=== PATIENT | male | born 1990 | race Caucasian/White ===

== ENCOUNTER 2021-07-04 02:40 | Emergency (ER) | payer BC ==
[2021-07-04 02:49] VITALS: TEMP 97.8
[2021-07-04] MEDS ORDERED: SODIUM CHLORIDE 0.9% 1,000 ML IV STA (03:29)
[2021-07-04] MEDS ORDERED: MORPHINE SULFATE 4 MG/ML SYRINGE IV STA (03:29)
[2021-07-04] MEDS ORDERED: ONDANSETRON 4 MG/2 ML VIAL IVP STA (03:29)
--- NOTE | 2021-07-04 04:10 | ED ---
Abdominal Pain HPI - General Chief Complaint: Abdominal Pain Stated Complaint: Crohn's flare up Time Seen by Provider: 07/04/21 03:05 Source: patient Mode of arrival: ambulatory - History of Present Illness Initial Comments: Patient is 31-year-old man with history of Crohn's disease who states that he believes he is having a flareup. The patient is having some lower abdominal pain as well as nausea and diarrhea. MD Complaint: abdominal pain -: days(s) Location: periumbilical, LLQ, RLQ Radiation: none Migration to: no migration Severity: moderate Quality: cramping, aching Consistency: constant Improves With: nothing Worsens With: nothing Associated Symptoms: nausea, diarrhea - Related Data Previous Rx's Medication Instructions Recorded Amoxicillin/Potassium Clav 1 tab PO Q12HR 1 Days #14 tab 07/04/21 [Augmentin 875-125 Tablet] Dicyclomine [Bentyl] 20 mg PO QID #15 tablet 07/04/21 Ondansetron Odt [Zofran ODT] 4 mg PO Q8HR PRN #10 tab 07/04/21 predniSONE 60 mg PO DAILY #30 tab 07/04/21 Allergies Allergy/AdvReac Type Severity Reaction Status Date / Time No Known Allergies Allergy Verified 07/04/21 02:48 Review of Systems ROS Statement: Those systems with pertinent positive or pertinent negative responses have been documented in the HPI. ROS Other: All systems not noted in ROS Statement are negative. Constitutional: Denies: fever, chills Respiratory: Denies: cough, dyspnea Cardiovascular: Denies: chest pain, palpitations, edema Gastrointestinal: Reports: abdominal pain, nausea, diarrhea. Denies: constipation, hematemesis, melena, hematochezia Genitourinary: Denies: dysuria, hematuria, testicular pain Musculoskeletal: Denies: back pain Skin: Denies: rash Neurological: Denies: headache, weakness Past Medical History Additional Past Medical History / Comment(s): chrons History of Any Multi-Drug Resistant Organisms: None Reported Additional Past Surgical History / Comment(s): spleen removed Past Psychological History: No Psychological Hx Reported Smoking Status: Never smoker Past Alcohol Use History: None Reported Past Drug Use History: None Reported General Exam General appearance: alert, in no apparent distress Head exam: Present: atraumatic, normocephalic Eye exam: Present: normal appearance. Absent: scleral icterus, conjunctival injection ENT exam: Present: normal oropharynx Neck exam: Present: normal inspection Respiratory exam: Present: normal lung sounds bilaterally. Absent: respiratory distress, wheezes, rales, rhonchi, stridor Cardiovascular Exam: Present: regular rate, normal rhythm, normal heart sounds. Absent: systolic murmur, diastolic murmur, rubs, gallop GI/Abdominal exam: Present: soft, tenderness (There is some lower abdominal tenderness without rebound or guarding). Absent: distended, guarding, rebound, rigid, mass, pulsatile mass, hernia Extremities exam: Present: normal inspection, normal capillary refill. Absent: pedal edema, calf tenderness Back exam: Present: normal inspection. Absent: CVA tenderness (R), CVA te nderness (L) Neurological exam: Present: alert Skin exam: Present: warm, dry, intact, normal color. Absent: rash Course Vital Signs 07/04/21 07/04/21 07/04/21 02:44 03:45 05:00 Temperature 97.8 F Pulse Rate 77 62 56 L Respiratory 18 20 20 Rate Blood Pressure 140/76 138/84 115/68 O2 Sat by Pulse 97 100 100 Oximetry 07/04/21 07/04/21 06:04 07:55 Temperature Pulse Rate 58 L 64 Respiratory 20 16 Rate Blood Pressure 121/92 117/69 O2 Sat by Pulse 99 99 Oximetry Medical Decision Making - Medical Decision Making Patient is 31-year-old man with history of inflammatory bowel disease who presents with what he believes is exacerbation of same. Workup does reveal marked leukocytosis and computed tomography scan is consistent with Crohn's flareup, possible small bowel obstruction. I did recommend that the patient stay for admission to begin having some improvement, but the patient then decided to leave AGAINST MEDICAL ADVICE. - Lab Data Result diagrams: 07/04/21 03:34 07/04/21 03:34 Lab Results 07/04/21 07/04/21 07/04/21 Range/Units 03:34 03:34 03:34 WBC 29.2 H (3.8-10.6) k/uL RBC 5.12 (4.30-5.90) m/uL Hgb 16.5 (13.0-17.5) gm/dL Hct 46.3 (39.0-53.0) % MCV 90.4 (80.0-100.0) fL MCH 32.2 (25.0-35.0) pg MCHC 35.6 (31.0-37.0) g/dL RDW 13.1 (11.5-15.5) % Plt Count 688 H (150-450) k/uL MPV 8.9 Neutrophils % 89 % Lymphocytes % 4 % Monocytes % 5 % Eosinophils % 1 % Basophils % 1 % Neutrophils # 26.0 H (1.3-7.7) k/uL Lymphocytes # 1.2 (1.0-4.8) k/uL Monocytes # 1.5 H (0-1.0) k/uL Eosinophils # 0.1 (0-0.7) k/uL Basophils # 0.2 (0-0.2) k/uL Hyperchromasia Marked Sodium 139 (137-145) mmol/L Potassium 3.7 (3.5-5.1) mmol/L Chloride 105 (98-107) mmol/L Carbon Dioxide 20 L (22-30) mmol/L Anion Gap 14 mmol/L BUN 9 (9-20) mg/dL Creatinine 0.62 L (0.66-1.25) mg/dL Est GFR (CKD-EPI)AfAm >90 (>60 ml/min/1.73 sqM) Est GFR (CKD-EPI)NonAf >90 (>60 ml/min/1.73 sqM) Glucose 116 H (74-99) mg/dL Calcium 10.1 (8.4-10.2) mg/dL Total Bilirubin 1.8 H (0.2-1.3) mg/dL AST 28 (17-59) U/L ALT 19 (4-49) U/L Alkaline Phosphatase 87 (38-126) U/L C-Reactive Protein 1.0 H (<1.0) mg/dL Total Protein 7.1 (6.3-8.2) g/dL Albumin 4.5 (3.5-5.0) g/dL Amylase 82 (30-110) U/L Lipase 96 (23-300) U/L Urine Color Yellow Urine Appearance Clear (Clear) Urine pH 5.5 (5.0-8.0) Ur Specific [place] 1.044 H (1.001-1.035) Urine Protein 1+ H (Negative) Urine Glucose (UA) Negative (Negative) Urine Ketones 2+ H (Negative) Urine Blood Negative (Negative) Urine Nitrite Negative (Negative) Urine Bilirubin Negative (Negative) Urine Urobilinogen 2.0 (<2.0) mg/dL Ur Leukocyte Esterase Negative (Negative) Urine RBC <1 (0-5) /hpf Urine WBC 6 H (0-5) /hpf Urine Mucus Many H (None) /hpf Disposition Clinical Impression: Crohn's disease, Small bowel obstruction Disposition: Left Against Medical Advice Condition: Undetermined Prescriptions: Amoxicillin/Potassium Clav [Augmentin 875-125 Tablet] 1 tab PO Q12HR 1 Days #14 tab Dicyclomine [Bentyl] 20 mg PO QID #15 tablet predniSONE 60 mg PO DAILY #30 tab Ondansetron Odt [Zofran ODT] 4 mg PO Q8HR PRN #10 tab PRN Reason: Nausea Is patient prescribed a controlled substance at d/c from ED?: No Referrals: None,Stated [Primary Care Provider] - 1-2 days
[2021-07-04 04:25] LABS: Basophils # (A) 0.2 k/uL (0-0.2); Basophils % (A) 1 %; Eosinophils # (A) 0.1 k/uL (0-0.7); Eosinophils % (A) 1 %; HCT 46.3 % (39.0-53.0); HGB 16.5 gm/dL (13.0-17.5); Hyperchromasia Marked; Lymphocytes # (A) 1.2 k/uL (1.0-4.8); Lymphocytes % (A) 4 %; MCH 32.2 pg (25.0-35.0); MCHC 35.6 g/dL (31.0-37.0); MCV 90.4 fL (80.0-100.0); Mean Platelet Volume 8.9; Monocytes # (A) 1.5 k/uL (0-1.0); Monocytes % (A) 5 %; Neutrophils % (A) 89 %; Platelet Count 688 k/uL (150-450); RBC 5.12 m/uL (4.30-5.90); RDW 13.1 % (11.5-15.5); WBC 29.2 k/uL (3.8-10.6)
[2021-07-04 04:26] LABS: Appearance,Urine Clear (Clear); Bilirubin,Urine Negative (Negative); Blood,Urine Negative (Negative); Color,Urine Yellow; Glucose,Urine (UA) Negative (Negative); Ketones,Urine 2+ (Negative); Leukocyte Esterase,Urine Negative (Negative); Mucus,Urine Many /hpf; Nitrite,Urine Negative (Negative); PH, Urine 5.5 (5.0-8.0); Protein,Urine 1+ (Negative); RBC,Urine <1 /hpf (0-5); Specific Gravity,Urine 1.044 (1.001-1.035); WBC,Urine 6 /hpf (0-5)
[2021-07-04 04:30] LABS: ALT 19 U/L (4-49); AST 28 U/L (17-59); African American GFR (CKD) >90 (>60 ml/min/1.73 sqM); Albumin 4.5 g/dL (3.5-5.0); Alkaline Phosphatase 87 U/L (38-126); Amylase 82 U/L (30-110); Anion Gap 14 mmol/L; Blood Urea Nitrogen 9 mg/dL (9-20); Calcium 10.1 mg/dL (8.4-10.2); Carbon Dioxide 20 mmol/L (22-30); Chloride 105 mmol/L (98-107); Glucose 116 mg/dL (74-99); Lipase 96 U/L (23-300); Non-African American GFR(CKD) >90 (>60 ml/min/1.73 sqM); Potassium 3.7 mmol/L (3.5-5.1); Sodium 139 mmol/L (137-145); Total Bilirubin 1.8 mg/dL (0.2-1.3); Total Protein 7.1 g/dL (6.3-8.2)
--- NOTE | 2021-07-04 05:43 | CT ---
EXAMINATION TYPE: CT abdomen pelvis wo con DATE OF EXAM: 07/04/2021 COMPARISON: None HISTORY: left sided pain. history of crohns. CT DLP: 452 mGycm Automated exposure control for dose reduction was used. Images obtained without contrast from the diaphragm to the floor the pelvis. Lung bases are clear. There is no pleural effusion. Heart size is normal. There is no pericardial eff usion. Liver has normal size and contour. Gallbladder is large and measures 4 cm in diameter. Bile du cts are not dilated. There is no pancreatic mass. Spleen is absent. There is no adrenal mass. Kidneys have normal size. There is no hydronephrosis. Ureters are not dilat ed. There is no retroperitoneal adenopathy. Bladder distends smoothly. There is no inguinal hernia. T here is small amount of low-density fluid in the pelvis. There are some dilated air and fluid-filled small bowel loops in the mid abdomen. There is small candie l mesenteric edema and adenopathy. Large bowel has normal size. There is dilation of the ileum extend ing to the ileocecal valve. Ileum is dilated up to 3.8 cm. There is no evidence of free air. Appendix not clearly seen. There is no sign of thickened appendix. Lumbar vertebra have normal alignment. Posterior elements are intact. Disc spaces are normal. Bony pe lvis is intact. The hip joints are intact. IMPRESSION: Dilated small bowel extending to the ileocecal valve consistent with ileus and partial mechanical obs truction. Small bowel mesenteric edema and adenopathy. This is consistent with inflammatory bowel disease. Hassan sition point is the ileocecal valve. I do not see a mass at the cecum. Very small amount of fluid in the pelvis. No free air. No evidence of an abscess. There is 3 x 2 cm area of increased density in th e small bowel mesentery there is probably a conglomeration of inflammatory lymph nodes.
[2021-07-04] MEDS ORDERED: methylPREDNISolone SOD SUCCI 125 MG/2 ML VIAL IV STA (05:47)
[2021-07-04] MEDS ORDERED: SODIUM CHLORIDE 0.9% 1,000 ML IV ONE (06:40)
[2021-07-04 07:57] VITALS: BP 117/69; PULSE 64; RESP 16
== END 2021-07-04 08:25 | disposition left against medical advice (07) ==
LOC: EC 02:40
DX: K50.90 Crohn's disease, unspecified, without complications (principal); K56.609 Unspecified intestinal obstruction, unspecified as to partial versus complete obstruction
CPT/HCPCS: 36415; 80053; 82150; 83690; 85025; 86140; 81001; 74176; 99284; 96374; 96375 ×2; 96361 ×2; J2270; J2930; J2405

== ENCOUNTER 2022-08-08 01:27 | Emergency (ER) | payer BC ==
[2022-08-08 01:35] VITALS: RESP 16; TEMP 97.8
[2022-08-08] MEDS ORDERED: SODIUM CHLORIDE 0.9% 1,000 ML IV STA (01:42)
[2022-08-08] MEDS ORDERED: PANTOPRAZOLE 40 MG/10 ML VIAL IVP STA (01:42)
[2022-08-08] MEDS ORDERED: MORPHINE SULFATE 4 MG/ML SYRINGE IV STA (01:42)
[2022-08-08] MEDS ORDERED: ONDANSETRON 4 MG/2 ML VIAL IVP STA (01:42)
--- NOTE | 2022-08-08 01:48 | ED ---
Abdominal Pain HPI - General Chief Complaint: Abdominal Pain Stated Complaint: Abdominal pain Time Seen by Provider: 08/08/22 01:42 Source: patient, RN notes reviewed, old records reviewed Mode of arrival: ambulatory Limitations: no limitations - History of Present Illness Initial Comments: This is a 32-year-old male to the emergency department for evaluation history of Crohn's disease history of abdominal pain coming in for abdominal pain worsening positive nausea vomiting diarrhea. Again history of Crohn's disease. No recent fevers. No travel history. Plan or diarrhea MD Complaint: abdominal pain -: days(s) Location: diffuse, epigastric, suprapubic Radiation: epigastric, suprapubic, bilateral flank Migration to: epigastric, bilateral flank Severity: severe Severity scale (1-10): 8 Quality: cramping, stabbing, aching Consistency: constant Improves With: nothing Worsens With: nothing Associated Symptoms: nausea, vomiting, diarrhea, constipation Treatments Prior to Arrival: other (0) - Related Data Home Medications Medication Instructions Recorded Confirmed No Known Home Medications 10/26/21 10/26/21 Allergies Allergy/AdvReac Type Severity Reaction Status Date / Time No Known Allergies Allergy Verified 08/08/22 01:31 Review of Systems ROS Statement: Those systems with pertinent positive or pertinent negative responses have been documented in the HPI. ROS Other: All systems not noted in ROS Statement are negative. Past Medical History Additional Past Medical History / Comment(s): chrons History of Any Multi-Drug Resistant Organisms: None Reported Additional Past Surgical History / Comment(s): spleen removed Past Anesthesia/Blood Transfusion Reactions: No Reported Reaction Past Psychological History: No Psychological Hx Reported Smoking Status: Never smoker Past Alcohol Use History: None Reported Past Drug Use History: None Reported - Past Family History Mother Additional Family Medical History / Comment(s): IBS Father Family Medical History: Cancer, Coronary Artery Disease (CAD) Additional Family Medical History / Comment(s): Father had prostate cancer, CABG, hereditary speen disease. family Family Medical History: No Reported History General Exam Limitations: no limitations General appearance: alert, in no apparent distress, anxious Head exam: Present: atraumatic, normocephalic, normal inspection Eye exam: Present: normal appearance, PERRL, EOMI. Absent: scleral icterus, conjunctival injection, periorbital swelling ENT exam: Present: normal exam, mucous membranes moist Neck exam: Present: normal inspection. Absent: tenderness, meningismus, lymphadenopathy Respiratory exam: Present: normal lung sounds bilaterally. Absent: respiratory distress, wheezes, rales, rhonchi, stridor Cardiovascular Exam: Present: normal rhythm, tachycardia, normal heart sounds. Absent: systolic murmur, diastolic murmur, rubs, gallop, clicks GI/Abdominal exam: Present: soft, distended, tenderness, normal bowel sounds. Absent: guarding, rebound, rigid Extremities exam: Present: normal inspection, full ROM, normal capillary refill. Absent: tenderness, pedal edema, joint swelling, calf tenderness Back exam: Present: normal inspection Neurological exam: Present: alert, oriented X3, CN II-XII intact Psychiatric exam: Present: normal affect, normal mood Skin exam: Present: warm, dry, intact, normal color. Absent: rash Course Vital Signs 08/08/22 08/08/22 08/08/22 01:31 04:12 04:27 Temperature 97.8 F Pulse Rate 106 H 60 70 Respiratory 16 16 Rate Blood Pressure 147/79 137/84 O2 Sat by Pulse 98 98 99 Oximetry 08/08/22 06:35 Temperature Pulse Rate 90 Respiratory Rate Blood Pressure 122/82 O2 Sat by Pulse Oximetry - Reevaluation(s) Reevaluation #1: 08/08/22 Medical record is reviewed Patient symptoms improved in the emergency room Patient informed of results and questions answered Medical Decision Making - Medical Decision Making 32 male DF for evaluation. Patient Dese for evaluation regards to abdominal pain with history of abdominal pain history of Crohn's. Patient feels improved here in the ER, given medications for symptom therapy home and can be discharged - Lab Data Result diagrams: 08/08/22 01:53 08/08/22 01:53 Lab Results 08/08/22 08/08/22 08/08/22 Range/Units 01:53 01:53 01:53 WBC 16.1 H (3.8-10.6) k/uL RBC 4.69 (4.30-5.90) m/uL Hgb 14.4 (13.0-17.5) gm/dL Hct 39.4 (39.0-53.0) % MCV 84.0 (80.0-100.0) fL MCH 30.6 (25.0-35.0) pg MCHC 36.4 (31.0-37.0) g/dL RDW 12.8 (11.5-15.5) % Plt Count 882 H (150-450) k/uL MPV 9.1 Neutrophils % 79 % Lymphocytes % 6 % Monocytes % 12 % Eosinophils % 2 % Basophils % 1 % Neutrophils # 12.7 H (1.3-7.7) k/uL Lymphocytes # 0.9 L (1.0-4.8) k/uL Monocytes # 1.9 H (0-1.0) k/uL Eosinophils # 0.3 (0-0.7) k/uL Basophils # 0.1 (0-0.2) k/uL Hyperchromasia Slight Poikilocytosis Slight PT 10.4 (9.0-12.0) sec INR 0.9 (<1.2) APTT 26.2 (22.0-30.0) sec Sodium 137 (137-145) mmol/L Potassium 3.5 (3.5-5.1) mmol/L Chloride 105 (98-107) mmol/L Carbon Dioxide 24 (22-30) mmol/L Anion Gap 8 mmol/L BUN 12 (9-20) mg/dL Creatinine 0.61 L (0.66-1.25) mg/dL Est GFR (CKD-EPI)AfAm >90 (>60 ml/min/1.73 sqM) Est GFR (CKD-EPI)NonAf >90 (>60 ml/min/1.73 sqM) Glucose 102 H (74-99) mg/dL Plasma Lactic Acid Johny (0.7-2.0) mmol/L Calcium 8.9 (8.4-10.2) mg/dL Total Bilirubin 1.2 (0.2-1.3) mg/dL AST 17 (17-59) U/L ALT 14 (4-49) U/L Alkaline Phosphatase 97 (38-126) U/L Total Protein 5.7 L (6.3-8.2) g/dL Albumin 3.4 L (3.5-5.0) g/dL Amylase 72 (30-110) U/L Lipase 84 (23-300) U/L 08/08/22 Range/Units 01:53 WBC (3.8-10.6) k/uL RBC (4.30-5.90) m/uL Hgb (13.0-17.5) gm/dL Hct (39.0-53.0) % MCV (80.0-100.0) fL MCH (25.0-35.0) pg MCHC (31.0-37.0) g/dL RDW (11.5-15.5) % Plt Count (150-450) k/uL MPV Neutrophils % % Lymphocytes % % Monocytes % % Eosinophils % % Basophils % % Neutrophils # (1.3-7.7) k/uL Lymphocytes # (1.0-4.8) k/uL Monocytes # (0-1.0) k/uL Eosinophils # (0-0.7) k/uL Basophils # (0-0.2) k/uL Hyperchromasia Poikilocytosis PT (9.0-12.0) sec INR (<1.2) APTT (22.0-30.0) sec Sodium (137-145) mmol/L Potassium (3.5-5.1) mmol/L Chloride (98-107) mmol/L Carbon Dioxide (22-30) mmol/L Anion Gap mmol/L BUN (9-20) mg/dL Creatinine (0.66-1.25) mg/dL Est GFR (CKD-EPI)AfAm (>60 ml/min/1.73 sqM) Est GFR (CKD-EPI)NonAf (>60 ml/min/1.73 sqM) Glucose (74-99) mg/dL Plasma Lactic Acid Johny 1.4 (0.7-2.0) mmol/L Calcium (8.4-10.2) mg/dL Total Bilirubin (0.2-1.3) mg/dL AST (17-59) U/L ALT (4-49) U/L Alkaline Phosphatase (38-126) U/L Total Protein (6.3-8.2) g/dL Albumin (3.5-5.0) g/dL Amylase (30-110) U/L Lipase (23-300) U/L - Radiology Data Radiology results: report reviewed (CT head and pelvis negative for acute disease), image reviewed Disposition Clinical Impression: Crohn's disease, Abdominal pain Disposition: HOME SELF-CARE Condition: Good Instructions (If sedation given, give patient instructions): Abdominal Pain (ED) Is patient prescribed a controlled substance at d/c from ED?: No Referrals: None,Stated [Primary Care Provider] - 1-2 days Time of Disposition: 06:10
[2022-08-08 02:20] LABS: INR 0.9 (<1.2); Partial Thromboplastin Time 26.2 sec (22.0-30.0); Prothrombin Time 10.4 sec (9.0-12.0)
[2022-08-08] MEDS ORDERED: HYDROmorphone 1 MG/ML 1 ML SYRINGE IVP STA ×2 (02:21→04:16)
[2022-08-08 02:24] LABS: ALT 14 U/L (4-49); AST 17 U/L (17-59); African American GFR (CKD) >90 (>60 ml/min/1.73 sqM); Albumin 3.4 g/dL (3.5-5.0); Alkaline Phosphatase 97 U/L (38-126); Amylase 72 U/L (30-110); Anion Gap 8 mmol/L; Blood Urea Nitrogen 12 mg/dL (9-20); Calcium 8.9 mg/dL (8.4-10.2); Carbon Dioxide 24 mmol/L (22-30); Chloride 105 mmol/L (98-107); Glucose 102 mg/dL (74-99); Lipase 84 U/L (23-300); Non-African American GFR(CKD) >90 (>60 ml/min/1.73 sqM); Potassium 3.5 mmol/L (3.5-5.1); Sodium 137 mmol/L (137-145); Total Bilirubin 1.2 mg/dL (0.2-1.3); Total Protein 5.7 g/dL (6.3-8.2)
[2022-08-08 02:27] LABS: Basophils # (A) 0.1 k/uL (0-0.2); Basophils % (A) 1 %; Eosinophils # (A) 0.3 k/uL (0-0.7); Eosinophils % (A) 2 %; HCT 39.4 % (39.0-53.0); HGB 14.4 gm/dL (13.0-17.5); Hyperchromasia Slight; Lymphocytes # (A) 0.9 k/uL (1.0-4.8); Lymphocytes % (A) 6 %; MCH 30.6 pg (25.0-35.0); MCHC 36.4 g/dL (31.0-37.0); Mean Platelet Volume 9.1; Monocytes # (A) 1.9 k/uL (0-1.0); Monocytes % (A) 12 %; Neutrophils # (A) 12.7 k/uL (1.3-7.7); Neutrophils % (A) 79 %; Platelet Count 882 k/uL (150-450); Poikilocytosis Slight; RBC 4.69 m/uL (4.30-5.90); RDW 12.8 % (11.5-15.5); WBC 16.1 k/uL (3.8-10.6)
--- NOTE | 2022-08-08 03:44 | CT ---
EXAMINATION TYPE: CT abdomen pelvis w con DATE OF EXAM: 08/08/2022 COMPARISON: 10/27/2021 HISTORY: lower abd pain w/ nausea CT DLP: 629.8 mGycm Automated exposure control for dose reduction was used. CONTRAST: Performed with IV Contrast, patient injected with 100 mL of Isovue 300. Images obtained from the diaphragm to the floor the pelvis with the IV contrast. The lung bases are clear. No pleural effusion. Heart size is normal. No pericardial effusion. Liver a ppears intact. There is no pancreatic mass. Spleen appears absent. Stomach is intact. Gallbladder is intact. The bile ducts are not dilated. There is no adrenal mass. Kidneys show normal size and contour. No hydronephrosis. There are multiple dilated fluid-filled small bowel loops in the mid abdomen. Small bowel dilated up to 4 cm per There is some abdominal free fluid in the pelvis. There is mild ascites. Appendix not see n. There is wall thickening of the distal ileum with straightening. There is no retroperitoneal adenopathy. Delayed images show normal renal excretion. No evidence of re nal obstruction. There is large right-sided scrotal hydrocele. The lumbar vertebra have normal alignment. Posterior elements are intact. No compression fracture. [place] pelvis is intact. The hip joints are intact. IMPRESSION: Compared to old exam there is development of abdominal ascites with hydrocele on the right side. The hydrocele is increased compared to the old exam There is dilated small bowel suggestive of partial mechanical small bowel obstruction which is a harris ge compared to the old exam. There is wall thickening of the distal ileum and consistent with inflamm atory bowel disease similar to old exam.
[2022-08-08] MEDS ORDERED: traMADol 50 MG STARTER PACK 3 TAB BTL PO STA (04:16)
[2022-08-08] MEDS ORDERED: diphenhydrAMINE 50 MG/ML 1 ML VIAL IVP STA (04:16)
[2022-08-08] MEDS ORDERED: DEXAMETHASONE SOD PHOSPHATE 10 MG/ML 1 ML VIAL IVP STA (04:16)
[2022-08-08] MEDS ORDERED: METOCLOPRAMIDE 5 MG/ML 2 ML VIAL IVP STA (04:16)
[2022-08-08] MEDS ORDERED: DICYCLOMINE 20 MG TAB PO STA (04:16)
[2022-08-08] MEDS ORDERED: ONDANSETRON 4 MG ODT STARTER PACK 2 TAB BTL PO STA (04:16)
[2022-08-08] MEDS ORDERED: ACET/COD 300 MG/30 MG STARTER PACK 6 TAB BTL PO STA (04:16)
[2022-08-08 06:35] VITALS: BP 122/82; PULSE 90
== END 2022-08-08 06:38 | disposition home or self-care (01) ==
LOC: EC 01:27
DX: K50.90 Crohn's disease, unspecified, without complications (principal)
CPT/HCPCS: 36415; 80053; 82150; 83605; 83690; 85025; 85610; 85730; 74177; 99284; 96374; 96375 ×6; 96376; 96361; J2270; J1200; J1100; J2765; J2405; J1170; S0119; C9113; Q9967

== ENCOUNTER 2022-09-22 12:37 | Inpatient (IN) | payer BC ==
[2022-09-22 12:41] VITALS: RESP 16
[2022-09-22 13:18] LABS: Basophils # (A) 0.1 k/uL (0-0.2); Basophils % (A) 1 %; Eosinophils # (A) 0.1 k/uL (0-0.7); Eosinophils % (A) 1 %; HCT 36.5 % (39.0-53.0); HGB 13.6 gm/dL (13.0-17.5); Hyperchromasia Slight; Lymphocytes # (A) 1.1 k/uL (1.0-4.8); Lymphocytes % (A) 10 %; MCH 30.4 pg (25.0-35.0); MCHC 37.1 g/dL (31.0-37.0); MCV 81.9 fL (80.0-100.0); Mean Platelet Volume 8.1; Monocytes # (A) 1.5 k/uL (0-1.0); Monocytes % (A) 13 %; Neutrophils # (A) 8.7 k/uL (1.3-7.7); Neutrophils % (A) 74 %; Platelet Count 750 k/uL (150-450); Poikilocytosis Slight; RBC 4.46 m/uL (4.30-5.90); WBC 11.6 k/uL (3.8-10.6)
[2022-09-22 13:38] LABS: ALT 16 U/L (4-49); AST 16 U/L (17-59); African American GFR (CKD) >90 (>60 ml/min/1.73 sqM); Albumin 3.2 g/dL (3.5-5.0); Alkaline Phosphatase 71 U/L (38-126); Anion Gap 8 mmol/L; Blood Urea Nitrogen 9 mg/dL (9-20); Calcium 8.1 mg/dL (8.4-10.2); Carbon Dioxide 31 mmol/L (22-30); Chloride 104 mmol/L (98-107); Glucose 116 mg/dL (74-99); Magnesium 1.1 mg/dL (1.6-2.3); Non-African American GFR(CKD) >90 (>60 ml/min/1.73 sqM); Sodium 143 mmol/L (137-145); Total Bilirubin 0.8 mg/dL (0.2-1.3); Total Protein 5.5 g/dL (6.3-8.2)
[2022-09-22 13:40] LABS: INR 1.1 (<1.2); Partial Thromboplastin Time 25.2 sec (22.0-30.0); Prothrombin Time 11.1 sec (9.0-12.0)
[2022-09-22 13:56] LABS: Potassium 2.5 mmol/L (3.5-5.1)
[2022-09-22] MEDS ORDERED: POTASSIUM CHLORIDE 20 MEQ in WATER FOR INJECTION 1 100ML.BAG IVPB STA ×2 (14:10→14:11)
[2022-09-22] MEDS ORDERED: POTASSIUM CHLORIDE ER 20 MEQ TAB.ER PO STA (14:12)
--- NOTE | 2022-09-22 14:30 | ED ---
Arrhythmia/Palpitations HPI - General Chief Complaint: Arrhythmia/Palpitations Stated Complaint: Palpitations,Numbness Time Seen by Provider: 09/22/22 14:05 Source: patient, RN notes reviewed, old records reviewed Mode of arrival: ambulatory Limitations: no limitations - History of Present Illness Initial Comments: This is a 32-year-old male who presents emergency Department with Crohn's disease. Patient states since last night he's been having palpitations in the palpitations were worse this morning. Patient states he has had electrolyte problems in the past. Patient denies any chest pain. Patient denies shortness of breath or difficulty breathing. Patient denies any recent fever chills or cough. Patient denies any nausea vomiting. Patient states his abdominal discomfort is better than its baseline. - Related Data Home Medications Medication Instructions Recorded Confirmed No Known Home Medications 10/26/21 10/26/21 Allergies Allergy/AdvReac Type Severity Reaction Status Date / Time No Known Allergies Allergy Verified 08/08/22 01:31 Review of Systems ROS Statement: Those systems with pertinent positive or pertinent negative responses have been documented in the HPI. ROS Other: All systems not noted in ROS Statement are negative. Past Medical History Additional Past Medical History / Comment(s): chrons History of Any Multi-Drug Resistant Organisms: None Reported Additional Past Surgical History / Comment(s): spleen removed Past Anesthesia/Blood Transfusion Reactions: No Reported Reaction Past Psychological History: No Psychological Hx Reported Smoking Status: Never smoker Past Alcohol Use History: None Reported Past Drug Use History: None Reported - Past Family History Mother Additional Family Medical History / Comment(s): IBS Father Family Medical History: Cancer, Coronary Artery Disease (CAD) Additional Family Medical History / Comment(s): Father had prostate cancer, CABG, hereditary speen disease. family Family Medical History: No Reported History General Exam - General Exam Comments Initial Comments: GENERAL: Patient is well-developed and well-nourished. Patient is nontoxic and well- hydrated and is in mild distress. ENT: Neck is soft and supple. No significant lymphadenopathy is noted. Oropharynx is clear. Moist mucous membranes. Neck has full range of motion without eliciting any pain. EYES: The sclera were anicteric and conjunctiva were pink and moist. Extraocular movements were intact and pupils were equal round and reactive to light. Eyelids were unremarkable. PULMONARY: Unlabored respirations. Good breath sounds bilaterally. No audible rales rhonchi or wheezing was noted. CARDIOVASCULAR: There is a regular rate and rhythm without any murmurs gallops or rubs. ABDOMEN: Abdomen was mildly diffusely tender SKIN: Skin is clear with no lesions or rashes and otherwise unremarkable. NEUROLOGIC: Patient is alert and oriented x3. Cranial nerves II through XII are grossly intact. Motor and sensory are also intact. Normal speech, volume and content. Symmetrical smile. MUSCULOSKELETAL: Normal extremities with adequate strength and full range of motion. No lower extremity swelling or edema. No calf tenderness. LYMPHATICS: No significant lymphadenopathy is noted PSYCHIATRIC: Normal psychiatric evaluation. Limitations: no limitations Course Vital Signs 09/22/22 12:39 Temperature 97 F L Pulse Rate 72 Respiratory 16 Rate Blood Pressure 155/89 O2 Sat by Pulse 99 Oximetry Medical Decision Making - Medical Decision Making EKG shows sinus bradycardia 57 bpm GA interval 230 QRS is 98 QT interval is 416 QTC is 411. Patient's EKG shows no ST segment elevation or depression. Was pt. sent in by a medical professional or institution (, PA, HEATING AND VENTILATION ENGINEER, urgent care, hospital, or alf...) When possible be specific @ -No Did you speak to anyone other than the patient for history (EMS, parent, family, police, friend...)? What history was obtained from this source @ -No Did you review nursing and triage notes (agree or disagree)? Why? @ -I reviewed and agree with nursing and triage notes Were old charts reviewed (outside hosp., previous admission, EMS record, old EKG, old radiological studies, urgent care reports/EKG's, alf records)? Report findings @ -No old charts were reviewed Differential Diagnosis (chest pain, altered mental status, abdominal pain women, abdominal pain men, vaginal bleeding, weakness, fever, dyspnea, syncope, headache, dizziness, GI bleed, back pain, seizure, CVA, palpatations, mental health)? @ -A. fib, atrial flutter, PVCs, PACs, L excellent abnormalities and this is not a complete list EKG interpreted by me (3pts min.). @ -As above X-rays interpreted by me (1pt min.). @ -None done CT interpreted by me (1pt min.). @ -None done U/S interpreted by me (1pt. min.). @ -None done What testing was considered but not performed or refused? (CT, X-rays, U/S, labs)? Why? @ -None What meds were considered but not given or refused? Why? @ -None Did you discuss the management of the patient with other professionals (professionals i.e. , PA, HEATING AND VENTILATION ENGINEER, lab, RT, psych nurse, delinquency prevention social worker, earring maker, teacher, security control room officer, case management director)? Give summary @ -No Was smoking cessation discussed for >3mins.? @ -No Was critical care preformed (if so, how long)? @ -No Were there social determinants of health that impacted care today? How? (Homelessness, low income, unemployed, alcoholism, drug addiction, transportation, low edu. Level, literacy, decrease access to med. care, halfway, rehab)? @ -No Was there de-escalation of care discussed even if they declined (Discuss DNR or withdrawal of care, Hospice)? DNR status @ -No What co-morbidities impacted this encounter? (DM, HTN, Smoking, COPD, CAD, Cancer, CVA, ARF, Chemo, Hep., AIDS, mental health diagnosis, sleep apnea, morbid obesity)? @ -Crohn's disease contributes to diarrhea on a daily basis which can contri bute to loss of electrolytes Was patient admitted / discharged? Hospital course, mention meds given and route, prescriptions, significant lab abnormalities, going to OR and other per tinent info. @ -Patient will be admitted for hypokalemia and hypomagnesemia. And patient will be kept on a monitor for the palpitations. I spoke with some positions he agreed to admit the patient admitted the patient wrote admitting orders I replace some of the potassium IV and oral in the ER as well as some of the magnesium. Undiagnosed new problem with uncertain prognosis? @ -No Drug Therapy requiring intensive monitoring for toxicity (Heparin, Nitro, Insulin, Cardizem)? @ -No Were any procedures done? @ -No Diagnosis/symptom? @ -Palpitation Acute, or Chronic, or Acute on Chronic? @ -Acute Uncomplicated (without systemic symptoms) or Complicated (systemic symptoms)? @ -Uncomplicated Side effects of treatment? @ -No Exacerbation, Progression, or Severe Exacerbation? @ -No Poses a threat to life or bodily function? How? (Chest pain, [place], CA, pneumonia, PE, COPD, DKA, ARF, appy, cholecystitis, CVA, Diverticulitis, Homicidal, Suicidal, threat to staff... and all critical care pts) @ -No Diagnosis/symptom? @ -Hypokalemia Acute, or Chronic, or Acute on Chronic? @ -Acute Uncomplicated (without systemic symptoms) or Complicated (systemic symptoms)? @ -Uncomplicated Side effects of treatment? @ -none Exacerbation, Progression, or Severe Exacerbation] @ -no Poses a threat to life or bodily function? @ -Yes it can lead to arrhythmias of the heart Diagnosis/symptom? @ -Hypomagnesemia Acute, or Chronic, or Acute on Chronic? @ -Acute Uncomplicated (without systemic symptoms) or Complicated (systemic symptoms)? @ -Uncomplicated Side effects of treatment? @ -none Exacerbation, Progression, or Severe Exacerbation] @ -no Poses a threat to life or bodily function? @ -no - Lab Data Result diagrams: 09/22/22 12:55 09/22/22 12:55 Lab Results 09/22/22 09/22/22 09/22/22 Range/Units 12:55 12:55 12:55 WBC 11.6 H (3.8-10.6) k/uL RBC 4.46 (4.30-5.90) m/uL Hgb 13.6 (13.0-17.5) gm/dL Hct 36.5 L (39.0-53.0) % MCV 81.9 (80.0-100.0) fL MCH 30.4 (25.0-35.0) pg MCHC 37.1 H (31.0-37.0) g/dL RDW 14.0 (11.5-15.5) % Plt Count 750 H (150-450) k/uL MPV 8.1 Neutrophils % 74 % Lymphocytes % 10 % Monocytes % 13 % Eosinophils % 1 % Basophils % 1 % Neutrophils # 8.7 H (1.3-7.7) k/uL Lymphocytes # 1.1 (1.0-4.8) k/uL Monocytes # 1.5 H (0-1.0) k/uL Eosinophils # 0.1 (0-0.7) k/uL Basophils # 0.1 (0-0.2) k/uL Hyperchromasia Slight Poikilocytosis Slight PT 11.1 (9.0-12.0) sec INR 1.1 (<1.2) APTT 25.2 (22.0-30.0) sec Sodium 143 (137-145) mmol/L Potassium 2.5 L* (3.5-5.1) mmol/L Chloride 104 (98-107) mmol/L Carbon Dioxide 31 H (22-30) mmol/L Anion Gap 8 mmol/L BUN 9 (9-20) mg/dL Creatinine 0.60 L (0.66-1.25) mg/dL Est GFR (CKD-EPI)AfAm >90 (>60 ml/min/1.73 sqM) Est GFR (CKD-EPI)NonAf >90 (>60 ml/min/1.73 sqM) Glucose 116 H (74-99) mg/dL Calcium 8.1 L (8.4-10.2) mg/dL Magnesium 1.1 L (1.6-2.3) mg/dL Total Bilirubin 0.8 (0.2-1.3) mg/dL AST 16 L (17-59) U/L ALT 16 (4-49) U/L Alkaline Phosphatase 71 (38-126) U/L Troponin I (0.000-0.034) ng/mL Total Protein 5.5 L (6.3-8.2) g/dL Albumin 3.2 L (3.5-5.0) g/dL TSH 0.738 (0.465-4.680) mIU/L 09/22/22 Range/Units 12:55 WBC (3.8-10.6) k/uL RBC (4.30-5.90) m/uL Hgb (13.0-17.5) gm/dL Hct (39.0-53.0) % MCV (80.0-100.0) fL MCH (25.0-35.0) pg MCHC (31.0-37.0) g/dL RDW (11.5-15.5) % Plt Count (150-450) k/uL MPV Neutrophils % % Lymphocytes % % Monocytes % % Eosinophils % % Basophils % % Neutrophils # (1.3-7.7) k/uL Lymphocytes # (1.0-4.8) k/uL Monocytes # (0-1.0) k/uL Eosinophils # (0-0.7) k/uL Basophils # (0-0.2) k/uL Hyperchromasia Poikilocytosis PT (9.0-12.0) sec INR (<1.2) APTT (22.0-30.0) sec Sodium (137-145) mmol/L Potassium (3.5-5.1) mmol/L Chloride (98-107) mmol/L Carbon Dioxide (22-30) mmol/L Anion Gap mmol/L BUN (9-20) mg/dL Creatinine (0.66-1.25) mg/dL Est GFR (CKD-EPI)AfAm (>60 ml/min/1.73 sqM) Est GFR (CKD-EPI)NonAf (>60 ml/min/1.73 sqM) Glucose (74-99) mg/dL Calcium (8.4-10.2) mg/dL Magnesium (1.6-2.3) mg/dL Total Bilirubin (0.2-1.3) mg/dL AST (17-59) U/L ALT (4-49) U/L Alkaline Phosphatase (38-126) U/L Troponin I <0.012 (0.000-0.034) ng/mL Total Protein (6.3-8.2) g/dL Albumin (3.5-5.0) g/dL TSH (0.465-4.680) mIU/L Disposition Clinical Impression: Hypokalemia, Hypomagnesemia, Palpitations Disposition: ADMITTED IP TO THIS [facility] Referrals: None,Stated [Primary Care Provider] - 1-2 days Time of Disposition: 14:40
[2022-09-22] MEDS ORDERED: SODIUM CHLORIDE 0.9% 1,000 ML IV ONE (14:41)
[2022-09-22] MEDS ORDERED: Potassium Replacement Protocol 1 EACH MISC MISCELLANE PRN (14:42)
[2022-09-22] MEDS: MAGNESIUM SULFATE-D5W PMX 1 GM in DEXTROSE/WATER 1 100ML.BAG IVPB SCH ×3 (15:03→19:52)
[2022-09-22] MEDS ORDERED: NALOXONE 0.4 MG/ML 1 ML VIAL IV PRN (16:42)
[2022-09-22] MEDS ORDERED: MAGNESIUM SULFATE-D5W PMX 1 GM in DEXTROSE/WATER 1 100ML.BAG IVPB SCH (16:45)
--- NOTE | 2022-09-22 16:49 | P.HPIM ---
History of Present Illness H&P Date: 09/22/22 Chief Complaint: Palpitations Patient is a 32-year-old male with history of Crohn's disease diagnosed 2 years ago, on steroids presenting with numbness tingling in his hands as well as palpitations that started today. He claims that over the last few days his been noticing increase bowel movements due to his Crohn's. He denies any significant abdominal pain since starting steroids. He denies any nausea or vomiting. He denies any shortness of breath, chest pain, lightheadedness. He claims that he's been able to eat and drink okay. Denies any urinary complaints. In the ED, his vital signs were within normal limits. Laboratory workup showed WBC of 11.6, platelets of 750, potassium of 2.5, magnesium level 1.1. Troponin negative. EKG shows sinus bradycardia with nonspecific ST-T wave changes. Patient seen and examined at bedside. Pertinent positives and negatives as discussed in HPI, a complete review of systems was performed and all other systems are negative. Vital signs reviewed General: nontoxic, no distress, appears at stated age Derm: warm, dry Head: atraumatic, normocephalic, symmetric Eyes: EOMI, no lid lag, anicteric sclera, pupils equal round reactive to light ENT: Nose and ears atraumatic Neck: No thyromegaly, supple Mouth: no lip lesion, mucus membranes moist Cardiovascular: S1S2 reg, no murmur, no edema Lungs: clear to auscultation bilateral, no rhonchi, no rales, no wheeze, no accessory muscle use Abdominal: soft, nontender to palpation, no guarding, no appreciable organomegaly Ext: no gross muscle atrophy, muscle strength muscle strength 5 out of 5 in all 4 extremities, no contractures Neuro: CN II-XII grossly intact Psych: Alert, oriented, appropriate affect Assessment/Plan: Severe hypokalemia Severe hypomagnesemia Paresthesias and numbness in extremities Acute on chronic diarrhea History of Crohn's disease -Replete electrolytes and monitor -Telemetry -Continue steroids Leukocytosissc Thrombocytosis -Likely reactive Sinus bradycardia -Continue telemetry Denies any other chronic medical problems The patient is admitted with an anticipated greater than 2 midnight stay for evaluation of electrolyte abnormalities. Surrogate decision-maker: Father CODE STATUS: Full Code DVT prophylaxis: Lovenox Anticipated discharge date: 1-[address]: Home A total of 50 minutes was spent on the care of this complex patient more than 50% of the time was spent in counseling and care coordination. Past Medical History Additional Past Medical History / Comment(s): chrons History of Any Multi-Drug Resistant Organisms: None Reported Additional Past Surgical History / Comment(s): spleen removed Past Anesthesia/Blood Transfusion Reactions: No Reported Reaction Past Psychological History: No Psychological Hx Reported Smoking Status: Never smoker Past Alcohol Use History: None Reported Past Drug Use History: None Reported - Past Family History Mother Additional Family Medical History / Comment(s): IBS Father Family Medical History: Cancer, Coronary Artery Disease (CAD) Additional Family Medical History / Comment(s): Father had prostate cancer, CABG, hereditary speen disease. family Family Medical History: No Reported History Medications and Allergies Home Medications Medication Instructions Recorded Confirmed Type Budesonide [Entocort EC] See Taper PO DAILY 09/22/22 09/22/22 History Allergies Allergy/AdvReac Type Severity Reaction Status Date / Time No Known Allergies Allergy Verified 09/22/22 14:55 Physical Exam Vitals: Vital Signs Temp Pulse Resp BP Pulse Ox 09/22/22 15:00 78 16 113/57 98 09/22/22 12:39 97 F L 72 16 155/89 99 Intake and Output 09/22/22 09/22/22 09/22/22 06:59 14:59 22:59 Other: Weight 62.596 kg Results CBC & Chem 7: 09/22/22 12:55 09/22/22 12:55 Labs: Abnormal Lab Results - Last 24 Hours (Table) 09/22/22 09/22/22 Range/Units 12:55 12:55 WBC 11.6 H (3.8-10.6) k/uL Hct 36.5 L (39.0-53.0) % MCHC 37.1 H (31.0-37.0) g/dL Plt Count 750 H (150-450) k/uL Neutrophils # 8.7 H (1.3-7.7) k/uL Monocytes # 1.5 H (0-1.0) k/uL Potassium 2.5 L* (3.5-5.1) mmol/L Carbon Dioxide 31 H (22-30) mmol/L Creatinine 0.60 L (0.66-1.25) mg/dL Glucose 116 H (74-99) mg/dL Calcium 8.1 L (8.4-10.2) mg/dL Magnesium 1.1 L (1.6-2.3) mg/dL AST 16 L (17-59) U/L Total Protein 5.5 L (6.3-8.2) g/dL Albumin 3.2 L (3.5-5.0) g/dL
[2022-09-22] MEDS: POTASSIUM CHLORIDE 10 MEQ in WATER FOR INJECTION 1 100ML.BAG IVPB SCH ×5 (18:00→21:28)
[2022-09-22 21:33] LABS: African American GFR (CKD) >90 (>60 ml/min/1.73 sqM); Anion Gap 2 mmol/L; Blood Urea Nitrogen 7 mg/dL (9-20); Calcium 7.9 mg/dL (8.4-10.2); Carbon Dioxide 31 mmol/L (22-30); Chloride 106 mmol/L (98-107); Glucose 99 mg/dL (74-99); Non-African American GFR(CKD) >90 (>60 ml/min/1.73 sqM); Potassium 3.1 mmol/L (3.5-5.1); Sodium 139 mmol/L (137-145)
[2022-09-23] MEDS ORDERED: POTASSIUM CHLORIDE ER 20 MEQ TAB.ER PO STA (08:30)
[2022-09-23] MEDS ORDERED: ENOXAPARIN 40 MG/0.4 ML SYRINGE SQ SCH (09:00)
[2022-09-23] MEDS ORDERED: Budesonide [Entocort Ec] 3 MG Capdr...Er PO SCH (09:00)
[2022-09-23 09:46] VITALS: BP 114/65; PULSE 65; TEMP 98.3
[2022-09-23 12:14] LABS: African American GFR (CKD) >90 (>60 ml/min/1.73 sqM); Anion Gap 2 mmol/L; Blood Urea Nitrogen 5 mg/dL (9-20); Carbon Dioxide 30 mmol/L (22-30); Chloride 108 mmol/L (98-107); Glucose 88 mg/dL (74-99); Non-African American GFR(CKD) >90 (>60 ml/min/1.73 sqM); Sodium 140 mmol/L (137-145)
--- NOTE | 2022-09-23 13:22 | P.DS ---
Providers Date of admission: 09/22/22 14:41 Expected date of discharge: 09/23/22 Attending physician: Cosme Alcazar MD Primary care physician: Stated None Hospital Course: Discharge Diagnosis: Hypokalemia Hypomagnesemia Paresthesias and numbness in extremities Acute on chronic diarrhea History of Crohn's disease Leukocytosis Normocytosis Sinus bradycardia Hospital Course: Patient is a 32-year-old male with history of Crohn's disease diagnosed 2 years ago, on steroids presenting with numbness tingling in his hands as well as palpitations that started today. He claims that over the last few days his been noticing increase bowel movements due to his Crohn's. He denies any significant abdominal pain since starting steroids. In the ED, his vital signs were within normal limits. Laboratory workup showed WBC of 11.6, platelets of 750, potassium of 2.5, magnesium level 1.1. Troponin negative. EKG shows sinus bradycardia with nonspecific ST-T wave changes. Both potassium and magnesium improved with IV repletion. Symptoms have completely resolved at the time of discharge. Due to poor absorption of potassium in inflammatory bowel disease, patient will be discharged on supplemental potassium. Supplemental magnesium not given due to side effect of increased diarrhea. Patient recommended to increase intake of foods with high magnesium and potassium. Patient to follow- up with primary care doctor for repeat BMP. Patient seen and examined at bedside. Vital signs reviewed and stable. General: nontoxic, no distress, appears at stated age Derm: warm, dry Head: atraumatic, normocephalic, symmetric Eyes: EOMI, no lid lag, anicteric sclera Mouth: no lip lesion, mucus membranes moist Cardiovascular: S1S2 reg, no murmur Lungs: CTA bilateral, no rhonchi, no rales , no accessory muscle use Abdominal: soft, nontender to palpation, no guarding, no appreciable organomegaly Ext: no gross muscle atrophy, no edema, no contractures Neuro: CN II-XI grossly intact, no focal neuro deficits Psych: Alert, oriented, appropriate affect A total of 37 minutes of time were spent preparing this complex discharge summary. Patient was discharged on 09/23/22 at 12:40. Patient Condition at Discharge: Stable Plan - Discharge Summary New Discharge Prescriptions: New Potassium Chloride [Potassium Chloride ER] 20 meq PO DAILY #60 tab Continue Budesonide [Entocort EC] See Taper PO DAILY Discharge Medication List Budesonide [Entocort EC] See Taper PO DAILY 09/22/22 [History] Potassium Chloride [Potassium Chloride ER] 20 meq PO DAILY #60 tab 09/23/22 [Rx] Follow up Appointment(s)/Referral(s): None,Stated [Primary Care Provider] - 1-2 days Patient Instructions/Handouts: Hypokalemia (DC) Activity/Diet/Wound Care/Special Instructions: Please see your primary care doctor as soon as possible. He may need repeat electrolyte check outside the hospital. Increase intake of potassium rich foods such as oranges and bananas. Discharge Disposition: HOME SELF-CARE
== END 2022-09-23 13:41 | disposition home or self-care (01) | DRG 641 ==
LOC: EC 12:37 → 3SCARD 14:41
PROVIDERS: ADMIT Family Medicine; ATTEND Family Medicine
DX: E87.6 Hypokalemia (principal); K50.90 Crohn's disease, unspecified, without complications; E83.42 Hypomagnesemia; D75.839 Thrombocytosis, unspecified; R00.1 Bradycardia, unspecified; D72.829 Elevated white blood cell count, unspecified; Z79.52 Long term (current) use of systemic steroids
CPT/HCPCS: 36415; 80048; 80053; 83735; 84443; 84484; 85025; 85610; 85730; 93005; 96361; 96365; 96366; 96368; 96372; 99285

== ENCOUNTER 2022-09-28 08:04 | Emergency (ER) | payer BC ==
[2022-09-28 08:12] VITALS: TEMP 96.7
[2022-09-28] MEDS ORDERED: SODIUM CHLORIDE 0.9% 1,000 ML IV STA ×2 (08:22)
[2022-09-28] MEDS ORDERED: ONDANSETRON 4 MG/2 ML VIAL IVP STA (08:22)
[2022-09-28] MEDS ORDERED: ACETAMINOPHEN IV (For NPO) 1,000 MG in EMPTY BAG 1 BAG IVPB STA (08:23)
--- NOTE | 2022-09-28 08:27 | ED ---
Abdominal Pain HPI - General Chief Complaint: Abdominal Pain Stated Complaint: Crohns,Abd Pain,Vomiting Time Seen by Provider: 09/28/22 08:16 Source: patient, RN notes reviewed Mode of arrival: ambulatory Limitations: no limitations - History of Present Illness Initial Comments: 32-year-old male with a history of Crohn's disease who states he had the onset this evening and early this morning of crampy severe abdominal pain with persistent nausea vomiting. He believes it is a flareup of his Crohn's disease. He feels somewhat lightheaded and dizzy when he tries to walk. He denies any diarrhea any blood per rectum no other complaints or modifying factors at this time. MD Complaint: abdominal pain, other - Related Data Home Medications Medication Instructions Recorded Confirmed Budesonide [Entocort EC] See Taper PO DAILY 09/22/22 09/28/22 Previous Rx's Medication Instructions Recorded Potassium Chloride [Potassium 20 meq PO DAILY #60 tab 09/23/22 Chloride ER] Allergies Allergy/AdvReac Type Severity Reaction Status Date / Time No Known Allergies Allergy Verified 09/28/22 10:16 Review of Systems ROS Statement: Those systems with pertinent positive or pertinent negative responses have been documented in the HPI. ROS Other: All systems not noted in ROS Statement are negative. Past Medical History Additional Past Medical History / Comment(s): chrons History of Any Multi-Drug Resistant Organisms: None Reported Additional Past Surgical History / Comment(s): spleen removed Past Anesthesia/Blood Transfusion Reactions: No Reported Reaction Past Psychological History: No Psychological Hx Reported Smoking Status: Never smoker Past Alcohol Use History: None Reported Past Drug Use History: None Reported - Past Family History Mother Additional Family Medical History / Comment(s): IBS Father Family Medical History: Cancer, Coronary Artery Disease (CAD) Additional Family Medical History / Comment(s): Father had prostate cancer, CABG, hereditary speen disease. family Family Medical History: No Reported History General Exam - General Exam Comments Initial Comments: This is a well-developed asthenic appearing male who is awake alert oriented 4 who is actively vomiting during the exam Limitations: no limitations General appearance: alert, anxious, in distress Head exam: Present: atraumatic, normocephalic, normal inspection Eye exam: Present: normal appearance, PERRL, EOMI. Absent: scleral icterus, c onjunctival injection, periorbital swelling ENT exam: Present: mucous membranes dry Neck exam: Present: normal inspection, full ROM. Absent: tenderness, meningismus, lymphadenopathy Respiratory exam: Present: normal lung sounds bilaterally. Absent: respiratory distress, wheezes, rales, rhonchi, stridor Cardiovascular Exam: Present: normal rhythm, tachycardia, normal heart sounds. Absent: systolic murmur, diastolic murmur, rubs, gallop, clicks GI/Abdominal exam: Present: soft, tenderness (Minimal to palpation), normal bowel sounds. Absent: distended, guarding, rebound, rigid, bruit, pulsatile mass Extremities exam: Present: normal inspection, full ROM, normal capillary refill. Absent: tenderness, pedal edema, joint swelling, calf tenderness Back exam: Present: normal inspection Neurological exam: Present: alert, oriented X3, CN II-XII intact Psychiatric exam: Present: normal affect, normal mood Skin exam: Present: warm, dry, intact, normal color. Absent: rash Course Vital Signs 09/28/22 09/28/22 08:08 12:45 Temperature 96.7 F L Pulse Rate 106 H 74 Respiratory 22 16 Rate Blood Pressure 155/106 125/75 O2 Sat by Pulse 99 100 Oximetry Medical Decision Making - Medical Decision Making The patient was reevaluated on multiple occasions she is feeling much improved at this time he had IV fluids as well as pain medication he will be discharged home we did discuss this also with return parameters patient will follow-up as planned with Dr. Pathak outpatient. He will return if needed. Was pt. sent in by a medical professional or institution (, PA, DRY CLEANER PRESSER, urgent care, hospital, or usp...) When possible be specific @ -No Did you speak to anyone other than the patient for history (EMS, parent, family, police, friend...)? What history was obtained from this source @ -No Did you review nursing and triage notes (agree or disagree)? Why? @ Yes and agree-I reviewed and agree with nursing and triage notes Were old charts reviewed (outside hosp., previous admission, EMS record, old EKG, old radiological studies, urgent care reports/EKG's, usp records)? Report findings @ -No old charts were reviewed Differential Diagnosis (chest pain, altered mental status, abdominal pain women, abdominal pain men, vaginal bleeding, weakness, fever, dyspnea, syncope, headache, dizziness, GI bleed, back pain, seizure, CVA, palpatations, mental health)? @ Abdominal pain, Crohn's exacerbation] EKG interpreted by me (3pts min.). @ -As above X-rays interpreted by me (1pt min.). @ S as above -None done CT interpreted by me (1pt min.). @ -None done U/S interpreted by me (1pt. min.). @ -None done What testing was considered but not performed or refused? (CT, X-rays, U/S, labs)? Why? @ -None What meds were considered but not given or refused? Why? @ -None Did you discuss the management of the patient with other professionals (professionals i.e. , PA, DRY CLEANER PRESSER, lab, RT, psych nurse, social and human services assistant, oyster grader, teacher, ship's officer, catalytic case operator)? Give summary @ -No Was smoking cessation discussed for >3mins.? @ -No Was critical care preformed (if so, how long)? @ -No Were there social determinants of health that impacted care today? How? (Homeles sness, low income, unemployed, alcoholism, drug addiction, transportation, low edu. Level, literacy, decrease access to med. care, senior care, rehab)? @ -No Was there de-escalation of care discussed even if they declined (Discuss DNR or withdrawal of care, Hospice)? DNR status @ -No What co-morbidities impacted this encounter? (DM, HTN, Smoking, COPD, CAD, Cancer, CVA, ARF, Chemo, Hep., AIDS, mental health diagnosis, sleep apnea, morbid obesity)? @ -None Was patient admitted / discharged? Hospital course, mention meds given and route, prescriptions, significant lab abnormalities, going to OR and other pertinent info. @ -hospital course Undiagnosed new problem with uncertain prognosis? @ -No Drug Therapy requiring intensive monitoring for toxicity (Heparin, Nitro, Insulin, Cardizem)? @ -No Were any procedures done? @ -No Diagnosis/symptom? @ Abdominal pain, spastic colon, Crohn's disease-default Acute, or Chronic, or Acute on Chronic? @ Acute on chronic-default Uncomplicated (without systemic symptoms) or Complicated (systemic symptoms)? @ -default Side effects of treatment? @ -No Exacerbation, Progression, or Severe Exacerbation? @ -No Poses a threat to life or bodily function? How? (Chest pain, [place], [place], pneumonia, PE, COPD, DKA, ARF, appy, cholecystitis, CVA, Diverticulitis, Homicidal, Suicidal, threat to staff... and all critical care pts) @ -No - Lab Data Result diagrams: 09/28/22 08:31 09/28/22 08:31 Lab Results 09/28/22 09/28/22 Range/Units 08:31 08:31 WBC 15.3 H (3.8-10.6) k/uL RBC 4.90 (4.30-5.90) m/uL Hgb 14.8 (13.0-17.5) gm/dL Hct 41.8 (39.0-53.0) % MCV 85.4 (80.0-100.0) fL MCH 30.3 (25.0-35.0) pg MCHC 35.4 (31.0-37.0) g/dL RDW 14.6 (11.5-15.5) % Plt Count 698 H (150-450) k/uL MPV 8.1 Neutrophils % (Manual) 75 % Lymphocytes % (Manual) 7 % Monocytes % (Manual) 15 % Eosinophils % (Manual) 3 % Neutrophils # (Manual) 11.48 H (1.3-7.7) k/uL Lymphocytes # (Manual) 1.07 (1.0-4.8) k/uL Monocytes # (Manual) 2.30 H (0-1.0) k/uL Eosinophils # (Manual) 0.46 (0-0.7) k/uL Nucleated RBCs 0 (0-0) /100 WBC Manual Slide Review Performed Hyperchromasia Moderate Poikilocytosis Slight Spherocytes Present Sodium 141 (137-145) mmol/L Potassium 3.3 L (3.5-5.1) mmol/L Chloride 109 H (98-107) mmol/L Carbon Dioxide 23 (22-30) mmol/L Anion Gap 9 mmol/L BUN 8 L (9-20) mg/dL Creatinine 0.65 L (0.66-1.25) mg/dL Est GFR (CKD-EPI)AfAm >90 (>60 ml/min/1.73 sqM) Est GFR (CKD-EPI)NonAf >90 (>60 ml/min/1.73 sqM) Glucose 129 H (74-99) mg/dL Calcium 9.0 (8.4-10.2) mg/dL Magnesium 1.6 (1.6-2.3) mg/dL Total Bilirubin 1.3 (0.2-1.3) mg/dL AST 21 (17-59) U/L ALT 22 (4-49) U/L Alkaline Phosphatase 84 (38-126) U/L Creatine Kinase 102 (55-170) U/L Total Protein 6.3 (6.3-8.2) g/dL Albumin 3.7 (3.5-5.0) g/dL Lipase 31 (23-300) U/L - Radiology Data Interpreted by me: Imaging evaluated by me no acute process Disposition Clinical Impression: Crohn's disease, Abdominal pain Disposition: HOME SELF-CARE Condition: Good Instructions (If sedation given, give patient instructions): Abdominal Pain (ED), Crohn Disease (ED) Is patient prescribed a controlled substance at d/c from ED?: No Referrals: None,Stated [Primary Care Provider] - 1-2 days Decision Date: 09/28/22 Decision Time: 14:00
[2022-09-28 08:51] LABS: HCT 41.8 % (39.0-53.0); HGB 14.8 gm/dL (13.0-17.5); Hyperchromasia Moderate; MCH 30.3 pg (25.0-35.0); MCHC 35.4 g/dL (31.0-37.0); MCV 85.4 fL (80.0-100.0); Mean Platelet Volume 8.1; Platelet Count 698 k/uL (150-450); Poikilocytosis Slight; RDW 14.6 % (11.5-15.5); WBC 15.3 k/uL (3.8-10.6)
--- NOTE | 2022-09-28 09:09 | XR ---
EXAMINATION TYPE: XR KUB DATE OF EXAM: 09/28/2022 Comparison: None Clinical History: 32-year-old male Abdominal pain with nausea vomiting history of Crohn's Findings: Supine imaging limited for assessment of free air. No dilated small bowel seen. Borderline caliber sm all bowel loop right mid to lower abdomen measuring 2.9 cm may be transient. No significant stool bur den. No suspicious calcification seen. Lung bases are clear. Impression: Solitary borderline distended small bowel loop right mid to lower abdomen measuring 2.9 cm many trans ient or could reflect a mild regional ileus or enteritis. Overall nonobstructive bowel gas pattern.
[2022-09-28 09:15] LABS: ALT 22 U/L (4-49); AST 21 U/L (17-59); African American GFR (CKD) >90 (>60 ml/min/1.73 sqM); Albumin 3.7 g/dL (3.5-5.0); Alkaline Phosphatase 84 U/L (38-126); Anion Gap 9 mmol/L; Blood Urea Nitrogen 8 mg/dL (9-20); Carbon Dioxide 23 mmol/L (22-30); Chloride 109 mmol/L (98-107); Creatine Kinase 102 U/L (55-170); Glucose 129 mg/dL (74-99); Lipase 31 U/L (23-300); Magnesium 1.6 mg/dL (1.6-2.3); Non-African American GFR(CKD) >90 (>60 ml/min/1.73 sqM); Potassium 3.3 mmol/L (3.5-5.1); Sodium 141 mmol/L (137-145); Total Bilirubin 1.3 mg/dL (0.2-1.3); Total Protein 6.3 g/dL (6.3-8.2)
[2022-09-28] MEDS ORDERED: POTASSIUM CHLORIDE 20 MEQ in WATER FOR INJECTION 1 100ML.BAG IVPB STA (09:35)
[2022-09-28] MEDS ORDERED: MAGNESIUM SULFATE-D5W PMX 1 GM in DEXTROSE/WATER 1 100ML.BAG IVPB ONE (09:35)
[2022-09-28 09:43] LABS: Eosinophils # (M) 0.46 k/uL (0-0.7); Lymphocytes # (M) 1.07 k/uL (1.0-4.8); Neutrophils # (M) 11.48 k/uL (1.3-7.7); Neutrophils % (M) 75 %; Nucleated Red Blood Cells 0 /100 WBC (0-0); Total Cells Counted 100
[2022-09-28 09:46] LABS: Spherocytes Present
[2022-09-28] MEDS ORDERED: SODIUM CHLORIDE 0.9% 500 ML 500 ML IV STA (10:20)
[2022-09-28] MEDS ORDERED: KETOROLAC 15 MG/ML 1 ML VIAL IVP STA (10:20)
[2022-09-28] MEDS ORDERED: methylPREDNISolone SOD SUCCI 125 MG/2 ML VIAL IV STA (12:08)
[2022-09-28] MEDS ORDERED: HYDROmorphone 1 MG/ML 1 ML SYRINGE IVP STA (12:08)
[2022-09-28 13:45] VITALS: BP 125/75; PULSE 74; RESP 16
== END 2022-09-28 14:35 | disposition home or self-care (01) ==
LOC: EC 08:04
DX: K50.90 Crohn's disease, unspecified, without complications (principal)
CPT/HCPCS: 36415; 80053; 82550; 83690; 83735; 85025; 74018; 99284; 96365; 96367; 96375; 96361; J2930; J3480; J2405; J1170; J3475; J0131; J1885

== ENCOUNTER → 2022-09-30 | Outpatient (CLI) | payer BC ==
[2022-09-30 11:20] LABS: HCT 36.6 % (39.6-50.0); HGB 11.7 g/dL (13.0-17.0); MCH 29.5 pg (27.0-32.0); MCV 92.2 fL (80.0-97.0); Mean Platelet Volume 10.1 fL (9.5-12.2); NRBC Per 100 WBC 0 /100 WBCS (0.0-0.0); Platelet Count 693 X 10*3/uL (140-440); RBC 3.97 X 10*6/uL (4.40-5.60); RDW 14.6 % (11.5-14.5); WBC 9.53 X 10*3/uL (4.50-10.00)
[2022-09-30 11:41] LABS: African American GFR (CKD) 152.7 (60.0-200.0); Albumin 3.2 g/dL (3.8-4.9); Albumin/Globulin Ratio 1.84 (1.60-3.17); Anion Gap 8.2 mmol/L (10.00-18.00); BUN/Creat Ratio 15.27 Ratio (12.00-20.00); Blood Urea Nitrogen 9.7 mg/dL (9.0-27.0); C Reactive Protein 2.6 mg/dL (0.00-0.80); Calcium 8.7 mg/dL (8.7-10.3); Carbon Dioxide 25.4 mmol/L (20.0-27.5); Globulin 1.7 g/dL (1.6-3.3); Non-African American GFR(CKD) 131.7 (60.0-200.0); Potassium 4.1 mmol/L (3.5-5.5); Total Bilirubin 0.4 mg/dL (0.30-1.20)
[2022-09-30 12:49] LABS: Basophils # (A) 0.08 X 10*3/uL (0.00-0.10); Basophils % (A) 0.8 %; Immature Grans, Automated 0.4 %; Lymphocytes # (A) 1.57 X 10*3/uL (0.90-5.00); Lymphocytes % (A) 16.5 %; Monocytes # (A) 2.05 X 10*3/uL (0.20-1.00); Monocytes % (A) 21.5 %; Neutrophils # (A) 5.69 X 10*3/uL (1.80-7.70); Neutrophils % (A) 59.8 %
[2022-09-30 12:50] LABS: Acanthocytes 2+; Microcytosis (M) 2+
[2022-09-30 13:58] LABS: Erythrocyte Sedimentation Rate 3 mm/Hr (0-15)
== END | disposition home or self-care (01) ==
LOC: LABWHC1 08:21
PROVIDERS: ATTEND Internal Medicine Gastroenterology
DX: K50.90 Crohn's disease, unspecified, without complications (principal)
CPT/HCPCS: 36415; 80053; 85025; 85652; 86140

== ENCOUNTER → 2022-12-12 | Outpatient (CLI) | payer BC ==
[2022-12-12 22:40] LABS: C Reactive Protein 1.2 mg/dL (0.00-0.80)
[2022-12-12 22:41] LABS: African American GFR (CKD) 140.9 (60.0-200.0); Albumin 3.7 g/dL (3.8-4.9); Albumin/Globulin Ratio 1.54 (1.60-3.17); Anion Gap 8.5 mmol/L (10.00-18.00); BUN/Creat Ratio 8.87 Ratio (12.00-20.00); Blood Urea Nitrogen 6.9 mg/dL (9.0-27.0); Calcium 9.2 mg/dL (8.7-10.3); Carbon Dioxide 27.6 mmol/L (20.0-27.5); Globulin 2.4 g/dL (1.6-3.3); Non-African American GFR(CKD) 121.6 (60.0-200.0); Potassium 3.6 mmol/L (3.5-5.5); Total Bilirubin 0.7 mg/dL (0.30-1.20); Total Protein 6.2 g/dL (6.2-8.2)
[2022-12-13 00:54] LABS: Erythrocyte Sedimentation Rate 2 mm/Hr (0-15)
[2022-12-13 01:06] LABS: Basophils # (A) 0.12 X 10*3/uL (0.00-0.10); Basophils % (A) 1.8 %; Eosinophils # (A) 0.16 X 10*3/uL (0.04-0.35); Eosinophils % (A) 2.3 %; HCT 44.1 % (39.6-50.0); HGB 14.7 g/dL (13.0-17.0); Immature Grans, Automated 0.4 %; Lymphocytes # (A) 1.17 X 10*3/uL (0.90-5.00); Lymphocytes % (A) 17.1 %; MCH 30.5 pg (27.0-32.0); MCHC 33.3 g/dL (32.0-37.0); MCV 91.5 fL (80.0-97.0); Mean Platelet Volume 10.1 fL (9.5-12.2); Monocytes # (A) 1.49 X 10*3/uL (0.20-1.00); Monocytes % (A) 21.8 %; NRBC Per 100 WBC 0 /100 WBCS (0.0-0.0); Neutrophils # (A) 3.87 X 10*3/uL (1.80-7.70); Neutrophils % (A) 56.6 %; Platelet Count 850 X 10*3/uL (140-440); RBC 4.82 X 10*6/uL (4.40-5.60); RBC Morphology NORMAL; WBC 6.84 X 10*3/uL (4.50-10.00)
== END | disposition home or self-care (01) ==
LOC: LABWHC1 15:47
PROVIDERS: ATTEND Internal Medicine Gastroenterology
DX: K50.90 Crohn's disease, unspecified, without complications (principal)
CPT/HCPCS: 36415; 80053; 85025; 85652; 86140

== ENCOUNTER 2023-02-02 05:57 | Inpatient (IN) | payer BC ==
[2023-02-02 06:41] LABS: Basophils # (A) 0.1 k/uL (0-0.2); Basophils % (A) 1 %; Eosinophils # (A) 0.4 k/uL (0-0.7); Eosinophils % (A) 2 %; HCT 42.5 % (39.0-53.0); HGB 15.4 gm/dL (13.0-17.5); Hyperchromasia Moderate; Lymphocytes # (A) 1.4 k/uL (1.0-4.8); Lymphocytes % (A) 9 %; MCH 30.1 pg (25.0-35.0); MCHC 36.4 g/dL (31.0-37.0); MCV 82.7 fL (80.0-100.0); Mean Platelet Volume 7.9; Monocytes # (A) 1.6 k/uL (0-1.0); Monocytes % (A) 10 %; Neutrophils # (A) 12.7 k/uL (1.3-7.7); Neutrophils % (A) 76 %; Platelet Count 816 k/uL (150-450); RBC 5.14 m/uL (4.30-5.90); RDW 12.7 % (11.5-15.5); WBC 16.6 k/uL (3.8-10.6)
[2023-02-02] MEDS ORDERED: SODIUM CHLORIDE 0.9% 1,000 ML IV STA ×2 (06:47→08:07)
[2023-02-02] MEDS ORDERED: MORPHINE SULFATE 4 MG/ML SYRINGE IVP STA (06:47)
--- NOTE | 2023-02-02 06:47 | ED ---
Abdominal Pain HPI - General Chief Complaint: Abdominal Pain Stated Complaint: Crohns Episode Time Seen by Provider: 02/02/23 06:14 Source: patient, RN notes reviewed Mode of arrival: wheelchair Limitations: no limitations - History of Present Illness Initial Comments: Patient is a 32-year-old male presenting to the emergency room with ac rj on chronic abdominal pain. He reports increase in lower abdominal pain primarily to the left lower quadrant ongoing for the last 48 hours. He reports chronic diarrhea with no evidence of blood in his most recent stools. He is complaining of nausea but has had no bouts of emesis. He denies any upper abdominal pain. He is also complaining of generalized paresthesia most prominently in his upper extremities that is intermittent without any weakness; he reports similar symptom with his previous Crohn's flare which was due to his electrolytes being abnormal. He was diagnosed with Crohn's disease approximately 2 years ago and is between immune suppressant therapy. He was placed on steroids approximately 4 months ago and was to follow-up with Dr. Omer regarding further evaluation and treatment plans after steroid treatment in 2 months. He denies any other complaints or concerns at this time including any chest pain, shortness of breath, headache, dizziness, dysuria, urinary frequency, fevers or chills. He has no other significant past medical history. - Related Data Home Medications Medication Instructions Recorded Confirmed Budesonide [Entocort EC] See Taper PO DAILY 09/22/22 09/28/22 Previous Rx's Medication Instructions Recorded Potassium Chloride [Potassium 20 meq PO DAILY #60 tab 09/23/22 Chloride ER] Allergies Allergy/AdvReac Type Severity Reaction Status Date / Time No Known Allergies Allergy Verified 02/02/23 06:04 Review of Systems ROS Statement: Those systems with pertinent positive or pertinent negative responses have been documented in the HPI. ROS Other: All systems not noted in ROS Statement are negative. Past Medical History Additional Past Medical History / Comment(s): Crohn's disease History of Any Multi-Drug Resistant Organisms: None Reported Additional Past Surgical History / Comment(s): spleen removed Past Anesthesia/Blood Transfusion Reactions: No Reported Reaction Past Psychological History: No Psychological Hx Reported Smoking Status: Never smoker Past Alcohol Use History: None Reported Past Drug Use History: None Reported - Past Family History Mother Additional Family Medical History / Comment(s): IBS Father Family Medical History: Cancer, Coronary Artery Disease (CAD) Additional Family Medical History / Comment(s): Father had prostate cancer, CABG, hereditary speen disease. family Family Medical History: No Reported History General Exam - General Exam Comments Initial Comments: GENERAL: No acute distress, well developed, well nourished. HEENT: Normocephalic, atraumatic. Pupils equal, round, reactive to light. Moist mucous membranes. LUNGS: No respiratory distress. Clear to auscultation, no adventitious sounds, no use of accessory muscles. HEART: Regular rate and rhythm without murmur, rub, or gallop. ABDOMEN: Normal bowel sounds. Soft, non-distended. Left lower quadrant tenderness, no guarding or rebound tenderness. BACK: Normal inspection. EXTREMITIES: No edema. No tenderness. Moves all extremities. NEUROLOGIC: Alert & oriented x 3. CN II-XII grossly intact. PSYCHIATRIC: Normal affect and behavior. DERMATOLOGIC: Skin intact, without rashes or lesions noted. Limitations: no limitations Course Vital Signs 02/02/23 02/02/23 06:04 08:39 Temperature 97.7 F Pulse Rate 112 H 75 Respiratory 32 H 18 Rate Blood Pressure 135/78 134/94 O2 Sat by Pulse 100 99 Oximetry Medical Decision Making - Medical Decision Making Was pt. sent in by a medical professional or institution (, PA, TOWEL HEMMER, urgent care, hospital, or retirement...) When possible be specific @ -No Did you speak to anyone other than the patient for history (EMS, parent, family, police, friend...)? What history was obtained from this source @ -No Did you review nursing and triage notes (agree or disagree)? Why? @ -I reviewed and agree with nursing and triage notes Were old charts reviewed (outside hosp., previous admission, EMS record, old EKG, old radiological studies, urgent care reports/EKG's, retirement records)? Report findings @ -No old charts were reviewed Differential Diagnosis (chest pain, altered mental status, abdominal pain women, abdominal pain men, vaginal bleeding, weakness, fever, dyspnea, syncope, he adache, dizziness, GI bleed, back pain, seizure, CVA, palpatations, mental health, musculoskeletal)? @ -Differential Abdominal Pain Men: Appendicitis, cholecystitis, diverticulosis, ischemic bowel, pancreatitis, hepatitis, UTI, gastroenteritis, AAA, incarcerated hernia, bowel obstruction, constipation, inflammatory bowel, hepatitis, peptic ulcer disease, splenic infarction, perforated viscus, testicular torsion, this is not meant to be an all-inclusive list EKG interpreted by me (3pts min.). @ -None done X-rays interpreted by me (1pt min.). @ -None done CT interpreted by me (1pt min.). @ -Computed tomography scan of the abdomen demonstrates significant ileum inflammation with mesenteric edema and trace ascites, no free air or abscess demonstrated. Incidental finding of redemonstration of large right sided scrotal hydrocele. U/S interpreted by me (1pt. min.). @ -None done What testing was considered but not performed or refused? (CT, X-rays, U/S, labs)? Why? @ -None What meds were considered but not given or refused? Why? @ -Anti-medics offered but declined. Did you discuss the management of the patient with other professionals (professionals i.e. , PA, TOWEL HEMMER, lab, RT, psych nurse, social human services assistants, controls design engineer, teacher, compliance review officer, case advocate)? Give summary @ -Yes, spoke with Dr. Patterson regarding patient presentation workup and recommendation of admission for ileitis and small bowel obstruction with surgical consult; he is accepting of admission will place admission orders and initiate IV steroids treatment. Was smoking cessation discussed for >3mins.? @ -No Was critical care preformed (if so, how long)? @ -No Were there social determinants of health that impacted care today? How? (Homelessness, low income, unemployed, alcoholism, drug addiction, transportation, low edu. Level, literacy, decrease access to med. care, fci, rehab)? @ -No Was there de-escalation of care discussed even if they declined (Discuss DNR or withdrawal of care, Hospice)? DNR status @ -No What co-morbidities impacted this encounter? (DM, HTN, Smoking, COPD, CAD, Cancer, CVA, ARF, Chemo, Hep., AIDS, mental health diagnosis, sleep apnea, morbid obesity)? @ -Crohn's disease Was patient admitted / discharged? Hospital course, mention meds given and route, prescriptions, significant lab abnormalities, going to OR and other pertinent info. @ -32-year-old male presenting to the emergency room with complaints of acute on chronic abdominal pain with nausea without vomiting. Chronic diarrhea no mucus or blood. Also reports some scattered paresthesia consistent with his previous paresthesia that he experienced when his potassium level was low. He denies any muscle weakness. Will begin workup for abdominal pain with laboratory studies of CBC, CMP, amylase, lipase, lactic acid, urinalysis, blood cultures along with computed tomography scan of the abdomen with contrast. Denies anti-medic need at this time we'll give IV hydration and morphine. Pain persists despite morphine will give Dilaudid for pain and additional 1 L fluid bolus. Laboratory studies reveal elevated CBC 16.6 and thrombocytosis with a platelet count of 816 neutrophils elevated 12.7 along with monocytes elevated at 1.6 will hold antibiotics at this time pending computed tomography scan as parsons spect likely reactive to Crohn's flare. Coags normal. CMP shows potassium level III.1 with normal magnesium level at 1.6 will replete magnesium orally and IV. Lactic acid mildly elevated at 2.1 bilirubin elevated 2.4 with A LT elevation at 61 with normal AST and normal in alkaline phosphatase. Amylase and lipase normal. Pain improved with Dilaudid, tolerating potassium repleting petition well. C omputed tomography scan demonstrated ileitis with small bowel obstruction, mesenteric edema and scattered abdominopelvic ascites, no free air or abscess along with reactive mesenteric adenopathy up to 1.7 cm. This is comparable to 08/08/2022 and consistent with Crohn's ileitis exacerbation. Attempted to contact Dr. Omer patient's GI provider however she is not field contact person at the facility at this time. Will continue IV hydration and keep patient nothing by mouth. No nausea vomiting or abdominal distention no indication for NG tube at this time. No indication for urinalysis need will discontinue order for urinalysis. GI service is not available at this time. Spoke with Dr. Patterson regarding patie nt presentation, workup, previous admission and workup and recommendation for admission with surgical consult. He is accepting of admission will place admission orders, will start on Solu-Medrol giving 125 mg now and then place on 60 every 6. Will continue IV hydration and repeat potassium level later this afternoon. Will Pl., Doctor Kimber on consults due to him seeing Dr. Rosas in the past. Will continue pain medication and place antiemetic on file if needed. Will admit patient in stable condition to medical surgical unit with telemetry under [facility] services for further evaluation and treatment of ileitis with small bowel obstruction. Undiagnosed new problem with uncertain prognosis? @ -No Drug Therapy requiring intensive monitoring for toxicity (Heparin, Nitro, Insulin, Cardizem)? @ -No Were any procedures done? @ -No Diagnosis/symptom? @ -Ileitis secondary to Crohn's disease with small bowel obstruction Acute, or Chronic, or Acute on Chronic? @ -Acute Uncomplicated (without systemic symptoms) or Complicated (systemic symptoms)? @ -Complicated Side effects of treatment? @ -No Exacerbation, Progression, or Severe Exacerbation? @ -No Poses a threat to life or bodily function? How? (Chest pain, [place], [place], pneumonia, PE, COPD, DKA, ARF, appy, cholecystitis, CVA, Diverticulitis, Homicidal, Suicidal, threat to staff... and all critical care pts) @ -Yes, significant ileitis with small bowel obstruction; high risk for worsening inflammation and bowel perforation. Case discussed with Dr. Woodard. - Lab Data Result diagrams: 02/02/23 06:17 02/02/23 06:17 Lab Results 02/02/23 02/02/23 02/02/23 Range/Units 06:17 06:17 06:17 WBC 16.6 H (3.8-10.6) k/uL RBC 5.14 (4.30-5.90) m/uL Hgb 15.4 (13.0-17.5) gm/dL Hct 42.5 (39.0-53.0) % MCV 82.7 (80.0-100.0) fL MCH 30.1 (25.0-35.0) pg MCHC 36.4 (31.0-37.0) g/dL RDW 12.7 (11.5-15.5) % Plt Count 816 H (150-450) k/uL MPV 7.9 Neutrophils % 76 % Lymphocytes % 9 % Monocytes % 10 % Eosinophils % 2 % Basophils % 1 % Neutrophils # 12.7 H (1.3-7.7) k/uL Lymphocytes # 1.4 (1.0-4.8) k/uL Monocytes # 1.6 H (0-1.0) k/uL Eosinophils # 0.4 (0-0.7) k/uL Basophils # 0.1 (0-0.2) k/uL Hyperchromasia Moderate PT (9.0-12.0) sec INR (<1.2) APTT (22.0-30.0) sec Sodium 139 (137-145) mmol/L Potassium 3.1 L (3.5-5.1) mmol/L Chloride 104 (98-107) mmol/L Carbon Dioxide 23 (22-30) mmol/L Anion Gap 12 mmol/L BUN 11 (9-20) mg/dL Creatinine 0.70 (0.66-1.25) mg/dL Est GFR (CKD-EPI)AfAm >90 (>60 ml/min/1.73 sqM) Est GFR (CKD-EPI)NonAf >90 (>60 ml/min/1.73 sqM) Glucose 119 H (74-99) mg/dL Plasma Lactic Acid Johny 2.1 H* (0.7-2.0) mmol/L Calcium 9.4 (8.4-10.2) mg/dL Magnesium (1.6-2.3) mg/dL Total Bilirubin 2.4 H (0.2-1.3) mg/dL AST 53 (17-59) U/L ALT 61 H (4-49) U/L Alkaline Phosphatase 96 (38-126) U/L Total Protein 6.1 L (6.3-8.2) g/dL Albumin 3.8 (3.5-5.0) g/dL Amylase 53 (30-110) U/L Lipase 62 (23-300) U/L 02/02/23 02/02/23 Range/Units 06:40 07:17 WBC (3.8-10.6) k/uL RBC (4.30-5.90) m/uL Hgb (13.0-17.5) gm/dL Hct (39.0-53.0) % MCV (80.0-100.0) fL MCH (25.0-35.0) pg MCHC (31.0-37.0) g/dL RDW (11.5-15.5) % Plt Count (150-450) k/uL MPV Neutrophils % % Lymphocytes % % Monocytes % % Eosinophils % % Basophils % % Neutrophils # (1.3-7.7) k/uL Lymphocytes # (1.0-4.8) k/uL Monocytes # (0-1.0) k/uL Eosinophils # (0-0.7) k/uL Basophils # (0-0.2) k/uL Hyperchromasia PT 10.5 (9.0-12.0) sec INR 1.0 (<1.2) APTT 25.1 (22.0-30.0) sec Sodium (137-145) mmol/L Potassium (3.5-5.1) mmol/L Chloride (98-107) mmol/L Carbon Dioxide (22-30) mmol/L Anion Gap mmol/L BUN (9-20) mg/dL Creatinine (0.66-1.25) mg/dL Est GFR (CKD-EPI)AfAm (>60 ml/min/1.73 sqM) Est GFR (CKD-EPI)NonAf (>60 ml/min/1.73 sqM) Glucose (74-99) mg/dL Plasma Lactic Acid Johny (0.7-2.0) mmol/L Calcium (8.4-10.2) mg/dL Magnesium 1.6 (1.6-2.3) mg/dL Total Bilirubin (0.2-1.3) mg/dL AST (17-59) U/L ALT (4-49) U/L Alkaline Phosphatase (38-126) U/L Total Protein (6.3-8.2) g/dL Albumin (3.5-5.0) g/dL Amylase (30-110) U/L Lipase (23-300) U/L - Radiology Data Radiology results: report reviewed, image reviewed Disposition Clinical Impression: Ileitis, terminal, Small bowel obstruction Disposition: ADMITTED IP TO THIS [facility] Condition: Stable Is patient prescribed a controlled substance at d/c from ED?: No Referrals: None,Stated [Primary Care Provider] - 1-2 days Time of Disposition: 09:37
[2023-02-02 07:00] LABS: ALT 61 U/L (4-49); AST 53 U/L (17-59); African American GFR (CKD) >90 (>60 ml/min/1.73 sqM); Albumin 3.8 g/dL (3.5-5.0); Alkaline Phosphatase 96 U/L (38-126); Amylase 53 U/L (30-110); Anion Gap 12 mmol/L; Blood Urea Nitrogen 11 mg/dL (9-20); Calcium 9.4 mg/dL (8.4-10.2); Carbon Dioxide 23 mmol/L (22-30); Chloride 104 mmol/L (98-107); Glucose 119 mg/dL (74-99); Lipase 62 U/L (23-300); Non-African American GFR(CKD) >90 (>60 ml/min/1.73 sqM); Potassium 3.1 mmol/L (3.5-5.1); Sodium 139 mmol/L (137-145); Total Bilirubin 2.4 mg/dL (0.2-1.3); Total Protein 6.1 g/dL (6.3-8.2)
[2023-02-02 07:25] LABS: Partial Thromboplastin Time 25.1 sec (22.0-30.0); Prothrombin Time 10.5 sec (9.0-12.0)
[2023-02-02] MEDS ORDERED: POTASSIUM CHLORIDE ER 20 MEQ TAB.ER PO STA ×2 (08:04→11:30)
[2023-02-02] MEDS ORDERED: POTASSIUM CHLORIDE 20 MEQ in WATER FOR INJECTION 1 100ML.BAG IVPB STA (08:04)
[2023-02-02] MEDS ORDERED: HYDROmorphone 1 MG/ML 1 ML SYRINGE IVP STA (08:07)
--- NOTE | 2023-02-02 08:39 | CT ---
EXAMINATION TYPE: CT abdomen pelvis w con DATE OF EXAM: 02/02/2023 COMPARISON: 08/08/2022 HISTORY: 32-year-old male Abdominal pain with history of Crohn's disease TECHNIQUE: Contiguous axial scanning of the abdomen and pelvis following administration of 100 ml Iso dimple 300 IV contrast. Delayed images through the kidneys and coronal/sagittal reconstructions perform ed. CT DLP: 664.3 mGycm Automated exposure control for dose reduction was used. FINDINGS: Heart normal size without pericardial effusion. Lung bases clear without pleural effusion. No focal liver lesion or biliary ductal dilatation. Portal venous system is patent. Gallbladder, adrenal glands, kidneys, and pancreas show no gross abnormality. The spleen is not seen. There is long segment ileitis extending to the ileocecal valve region characterized by circumferentia l narrowing, wall thickening, mucosal hyperemia and spanning up to nearly 30 cm. Just proximal to thi s narrowed, inflamed segment, there is additional ileum with circumferential wall thickening and dila tation up to 3.9 cm containing air-fluid levels. Proximal small bowel dilatation up to 4.1 cm. There is associated mesenteric edema and some borderline to mildly enlarged mesenteric nodes measurin g up to 1.1 cm. The overall changes are not as severe as on 08/08/2022 but seem to represent a recurr ence of that same process. There appears to be a large right-sided scrotal hydrocele with fluid exten ding along the right inguinal canal as was present previously. Only trace interloop ascites fluid is present. No free air. The colon is largely collapsed. Small latrell unt of liquid stool in the right side of the colon. Additional mild pelvic free fluid. Bladder is urine distended. Tiny left-sided pelvic phlebolith. No obvious pelvic lymphadenopathy. Bones: No osseous destructive process. IMPRESSION: 1. RECURRENCE OF THE LONG SEGMENT (APPROXIMATELY 30 CM LONG) TERMINAL ILEITIS WITH ASSOCIATED NARROWI NG AND SECONDARY SMALL BOWEL OBSTRUCTION. SMALL BOWEL LOOPS PROXIMALLY ARE DILATED UP TO 4.1 CM. 2. REACTIVE MESENTERIC EDEMA AND MILD SCATTERED ABDOMINOPELVIC ASCITES. NO FREE AIR OR ABSCESS. REICH ES ARE PRONOUNCED BUT NOT QUITE SEVERE ON 08/08/2022 EXAM. 3. Reactive mesenteric adenopathy measuring up to 1.1 cm. Again, significant but not quite as severe as on 08/08/2022. 4. Large right-sided scrotal hydrocele redemonstrated. Fluid extends across the right and one of the canal, likely trapped ascites fluid. Clinically correlate.
[2023-02-02] MEDS ORDERED: methylPREDNISolone SOD SUCCI 125 MG/2 ML VIAL IV STA (09:29)
[2023-02-02] MEDS ORDERED: NALOXONE 0.4 MG/ML 1 ML VIAL IV PRN (09:30)
[2023-02-02] MEDS ORDERED: HYDROmorphone 2 MG TAB PO PRN (09:30)
[2023-02-02] MEDS ORDERED: HYDROmorphone 0.5 MG/0.5 ML SYRINGE IVP PRN (09:30)
[2023-02-02] MEDS ORDERED: ONDANSETRON 4 MG/2 ML VIAL IVP PRN (09:30)
[2023-02-02] MEDS: PANTOPRAZOLE 40 MG/10 ML VIAL IVP SCH (12:15)
[2023-02-02] MEDS: SODIUM CHLORIDE 0.9% 1,000 ML IV SCH ×2 (12:16→20:12)
[2023-02-02] MEDS ORDERED: HYDROmorphone 1 MG/ML 1 ML SYRINGE IVP PRN (13:13)
--- NOTE | 2023-02-02 13:23 | P.HPIM ---
History of Present Illness 32-year-old male came in with a diffuse abdominal pain which is cramping in nature similar to the pain that he usually has been had Crohn's flareup. Patient was treated for low Crohn's flareup about any ago with systemic steroids presently not taking any medications for Crohn's disease. Patient had a CT of the abdomen which showed ileitis consistent with Crohn's and a hydrocele on the right side. REVIEW OF SYSTEMS: CONSTITUTIONAL: No fever, no malaise, no fatigue. HEENT: No recent visual problems or hearing problems. Denied any sore throat. CARDIOVASCULAR: No chest pain, orthopnea, PND, no palpitations, no syncope. PULMONARY: No shortness of breath, no cough, no hemoptysis. GASTROINTESTINAL: No diarrhea, no nausea, no vomiting, . NEUROLOGICAL: No headaches, no weakness, no numbness. HEMATOLOGICAL: Denies any bleeding or petechiae. GENITOURINARY: Denies any burning micturition, frequency, or urgency. MUSCULOSKELETAL/RHEUMATOLOGICAL: Denies any joint pain, swelling, or any muscle pain. ENDOCRINE: Denies any polyuria or polydipsia. The rest of the 14-point review of systems is negative. PHYSICAL EXAMINATION: GENERAL: The patient is alert and oriented x3, not in any acute distress. Well developed, well nourished. HEENT: Pupils are round and equally reacting to light. EOMI. No scleral icterus. No conjunctival pallor. Normocephalic, atraumatic. No pharyngeal erythema. No thyromegaly. CARDIOVASCULAR: S1 and S2 present. No murmurs, rubs, or gallops. PULMONARY: Chest is clear to auscultation, no wheezing or crackles. ABDOMEN: Soft, nontender, nondistended, normoactive bowel sounds. No palpable organomegaly. MUSCULOSKELETAL: No joint swelling or deformity. EXTREMITIES: No cyanosis, clubbing, or pedal edema. NEUROLOGICAL: Gross neurological examination did not reveal any focal deficits. SKIN: No rashes. Assessment and plan -Possible Crohn's flareup will obtain ESR and CRP is elevated to 3.2 patient will be started on steroids 20 mg IV twice a day patient was started on liquid diet as tolerated we'll advance the diet. -Right-sided hydrocele: General surgery will evaluate the patient -Leukocytosis: Secondary to Crohn's disease and Crohn's flareup DVT prophylaxis: Early ambulation Patient probably can be discharged tomorrow if his symptoms improve on 20 mg twice a day of oral steroid tapering it by 10 mg on weekly basis Past Medical History Additional Past Medical History / Comment(s): Crohn's disease History of Any Multi-Drug Resistant Organisms: None Reported Additional Past Surgical History / Comment(s): spleen removed Past Anesthesia/Blood Transfusion Reactions: No Reported Reaction Past Psychological History: No Psychological Hx Reported Smoking Status: Never smoker Past Alcohol Use History: None Reported Past Drug Use History: None Reported - Past Family History Mother Additional Family Medical History / Comment(s): IBS Father Family Medical History: Cancer, Coronary Artery Disease (CAD) Additional Family Medical History / Comment(s): Father had prostate cancer, CABG, hereditary speen disease. family Family Medical History: No Reported History Medications and Allergies Home Medications Medication Instructions Recorded Confirmed Type Dicyclomine [Bentyl] 10 mg PO TID PRN 02/02/23 02/02/23 History Allergies Allergy/AdvReac Type Severity Reaction Status Date / Time No Known Allergies Allergy Verified 02/02/23 10:44 Physical Exam Vitals: Vital Signs Temp Pulse Resp BP Pulse Ox 02/02/23 13:00 98.6 F 90 18 132/78 100 02/02/23 08:39 75 18 134/94 99 02/02/23 06:04 97.7 F 112 H 32 H 135/78 100 Intake and Output 02/01/23 02/02/23 02/02/23 22:59 06:59 14:59 Other: Weight 68.039 kg Results CBC & Chem 7: 02/02/23 06:17 02/02/23 12:20 Labs: Abnormal Lab Results - Last 24 Hours (Table) 02/02/23 02/02/23 02/02/23 Range/Units 06:17 06:17 06:17 WBC 16.6 H (3.8-10.6) k/uL Plt Count 816 H (150-450) k/uL Neutrophils # 12.7 H (1.3-7.7) k/uL Monocytes # 1.6 H (0-1.0) k/uL Potassium 3.1 L (3.5-5.1) mmol/L Glucose 119 H (74-99) mg/dL Plasma Lactic Acid Johny 2.1 H* (0.7-2.0) mmol/L Total Bilirubin 2.4 H (0.2-1.3) mg/dL ALT 61 H (4-49) U/L C-Reactive Protein (<1.0) mg/dL Total Protein 6.1 L (6.3-8.2) g/dL 02/02/23 02/02/23 Range/Units 06:17 10:51 WBC (3.8-10.6) k/uL Plt Count (150-450) k/uL Neutrophils # (1.3-7.7) k/uL Monocytes # (0-1.0) k/uL Potassium (3.5-5.1) mmol/L Glucose (74-99) mg/dL Plasma Lactic Acid Johny 0.6 L (0.7-2.0) mmol/L Total Bilirubin (0.2-1.3) mg/dL ALT (4-49) U/L C-Reactive Protein 3.2 H (<1.0) mg/dL Total Protein (6.3-8.2) g/dL
[2023-02-02] MEDS ORDERED: methylPREDNISolone SOD SUCCI 125 MG/2 ML VIAL IV SCH (18:00)
[2023-02-02] MEDS: methylPREDNISolone SOD SUCCI 40 MG/ML 1 ML VIAL IV SCH (20:11)
[2023-02-03 08:05] VITALS: BP 114/64; PULSE 64; RESP 16; TEMP 98.4
[2023-02-03] MEDS: methylPREDNISolone SOD SUCCI 40 MG/ML 1 ML VIAL IV SCH (09:36)
[2023-02-03] MEDS: SODIUM CHLORIDE 0.9% 1,000 ML IV SCH (09:37)
[2023-02-03] MEDS: PANTOPRAZOLE 40 MG/10 ML VIAL IVP SCH (09:37)
--- NOTE | 2023-02-03 11:54 | P.GSCN ---
History of Present Illness Consult date: 02/03/23 Reason for Consult: Abdominal pain History of present illness: 32-year-old male with history of Crohn's disease. The patient is on immune ther apy. He follows with Dr. Omer as an outpatient. Came to the hospital yesterday with an exacerbation of his Crohn's. Was started on IV steroids. Patient says his pain completely resolved. He is tolerating diet at this time. He actually has been discharged by primary service. Review of Systems The patient denies any acute changes in vision or hearing, no dysphagia or odynophagia, no chest pain or shortness of breath, no dysuria or hematuria, no headache, no runny nose, no rectal bleeding or melena, no unexplained weight loss Past Medical History Additional Past Medical History / Comment(s): Crohn's disease History of Any Multi-Drug Resistant Organisms: None Reported Additional Past Surgical History / Comment(s): spleen removed at 8 years old Past Anesthesia/Blood Transfusion Reactions: No Reported Reaction Past Psychological History: No Psychological Hx Reported Additional Psychological History / Comment(s): Pt resides alone. He is independent. Smoking Status: Never smoker Past Alcohol Use History: None Reported Past Drug Use History: None Reported - Past Family History Mother Additional Family Medical History / Comment(s): IBS Father Family Medical History: Cancer, Coronary Artery Disease (CAD) Additional Family Medical History / Comment(s): Father had prostate cancer, CABG, hereditary speen disease. family Family Medical History: No Reported History Medications and Allergies Home Medications Medication Instructions Recorded Confirmed Type Dicyclomine [Bentyl] 10 mg PO TID PRN 02/02/23 02/02/23 History Pantoprazole Sodium [Protonix] 40 mg PO DAILY 10 Days #30 tab 02/03/23 Rx predniSONE 30 mg PO DAILY #10 tab 02/03/23 Rx Allergies Allergy/AdvReac Type Severity Reaction Status Date / Time No Known Allergies Allergy Verified 02/02/23 10:44 Surgical - Exam Vital Signs Temp Pulse Resp BP Pulse Ox 97.7 F 112 H 32 H 135/78 100 02/02/23 06:04 02/02/23 06:04 02/02/23 06:04 02/02/23 06:04 02/02/23 06:04 Physical exam: General: Well-developed, well-nourished HEENT: Normocephalic, sclerae nonicteric Abdomen: Nontender, nondistended Extremities: No edema Neuro: Alert and oriented Results - Labs 02/02/23 06:17 02/02/23 12:20 Abnormal Lab Results - Last 24 Hours (Table) 02/02/23 Range/Units 06:17 C-Reactive Protein 3.2 H (<1.0) mg/dL Diabetes panel 02/02/23 Range/Units 12:20 Potassium 3.7 (3.5-5.1) mmol/L Pituitary panel 02/02/23 Range/Units 12:20 Potassium 3.7 (3.5-5.1) mmol/L Adrenal panel 02/02/23 Range/Units 12:20 Potassium 3.7 (3.5-5.1) mmol/L Assessment and Plan (1) Crohn's disease Narrative/Plan: 32-year-old male with exacerbation of Crohn's. Doing well today. Agree with plans for discharge. Follow-up with GI postdischarge. Status: Acute Code(s): K50.90 - CROHN'S DISEASE, UNSPECIFIED, WITHOUT COMPLICATIONS SNOMED Code(s): 44046914
--- NOTE | 2023-02-03 20:00 | DS ---
DISCHARGE SUMMARY FINAL DIAGNOSES: 1. Abdominal pain, possibly acute ileitis secondary to Crohn disease, acute exacerbation. 2. Abdominal pain, improved. 3. Elevated WBC. DISCHARGE DISPOSITION: The patient will be discharged in stable condition. Guarded prognosis. HISTORY OF PRESENT ILLNESS: This is a 32-year-old gentleman with a past medical history of multiple medical problems, admitted with abdominal pain and ileitis was suspected. The patient presented with pain medication and IV steroids. PHYSICAL EXAMINATION: VITAL SIGNS: Stable. CARDIOVASCULAR: S1, S2. ABDOMEN: Soft. DISCHARGE MEDICATIONS: The patient will be discharged home with the following medications: 1. Protonix 40 daily. 2. Prednisone 30 mg p.o. daily. Follow up with Dr. Pathak and primary physician in the outpatient setting. Diet is clear liquids. Follow up with Surgery as recommended. Once again, the patient will be discharged in stable condition and guarded prognosis. MMDARON / BLANCA: [id number] /
== END 2023-02-03 11:40 | disposition home or self-care (01) | DRG 386 ==
LOC: EC 05:57 → 5NMEDONC 09:28
PROVIDERS: ADMIT Internal Medicine; ATTEND Internal Medicine
DX: K50.012 Crohn's disease of small intestine with intestinal obstruction (principal); K56.609 Unspecified intestinal obstruction, unspecified as to partial versus complete obstruction; N43.3 Hydrocele, unspecified; R20.2 Paresthesia of skin; Z79.899 Other long term (current) drug therapy
CPT/HCPCS: 36415; 74177; 80053; 82150; 83605; 83690; 83735; 84132; 85025; 85610; 85652; 85730; 86140; 87040; 96361; 96365; 96366; 96375; 96376; 99285

== ENCOUNTER → 2023-02-20 | Outpatient (CLI) | payer BC ==
[2023-02-21 01:52] LABS: Hepatitis B Surface AB- Quant 53.1 mIU/mL; Hepatitis B Surface Antigen Nonreactive; Hepatitis C IgG Antibody Nonreactive
[2023-02-21 02:34] LABS: ALT 28 U/L; AST 20 U/L; Albumin 3.9 d/dL; Albumin/Globulin Ratio 2.17 Ratio; Alkaline Phosphatase 84 U/L; BUN/Creat Ratio 8.88 Ratio; Blood Urea Nitrogen 7.1 mg/dL; Calcium 8.9 mg/dL; Carbon Dioxide 25.7 mmol/L; Chloride 105 mmol/L; Globulin 1.8 d/dL; Glucose 73 mg/dL; Sodium 144 mmol/L; Total Bilirubin 0.5 mg/dL; Total Protein 5.7 d/dL
[2023-02-21 08:34] LABS: Basophils # (A) 0.11 X 10*3/uL; Basophils % (A) 1.4 %; Eosinophils # (A) 0.31 X 10*3/uL; Eosinophils % (A) 3.9 %; HCT 43.3 %; HGB 14.5 d/dL; Lymphocytes # (A) 1.27 X 10*3/uL; MCH 30.9 pg; MCHC 33.5 d/dL; MCV 92.1 FL; Mean Platelet Volume 12.2 FL; Monocytes # (A) 1.53 X 10*3/uL; Monocytes % (A) 19.3 %; NRBC Per 100 WBC 0 X 10*3/uL; Neutrophils # (A) 4.69 X 10*3/uL; Neutrophils % (A) 59.1 %; Platelet Count 752 X 10*3/uL; RDW 14.1 %; WBC 7.93 X 10*3/uL
[2023-02-21 09:11] LABS: Erythrocyte Sedimentation Rate 7 mm/Hr
== END | disposition home or self-care (01) ==
LOC: LABWHC1 15:27
PROVIDERS: ATTEND Internal Medicine Gastroenterology
DX: K50.90 Crohn's disease, unspecified, without complications (principal)
CPT/HCPCS: 36415; 80053; 85025; 85652; 86140; 86480; 86706; 86803; 87340

== ENCOUNTER 2023-07-22 23:09 | Emergency (ER) | payer BC ==
[2023-07-22 23:35] VITALS: TEMP 97.9
[2023-07-22] MEDS ORDERED: ONDANSETRON 4 MG/2 ML VIAL IVP STA (23:52)
[2023-07-22] MEDS ORDERED: SODIUM CHLORIDE 0.9% 1,000 ML IV STA (23:52)
[2023-07-22] MEDS ORDERED: MORPHINE SULFATE 4 MG/ML SYRINGE IVP STA (23:58)
[2023-07-23] MEDS ORDERED: HYDROmorphone 1 MG/ML 1 ML SYRINGE IVP STA ×3 (00:43→03:45)
[2023-07-23 00:51] LABS: Basophils # (A) 0.1 k/uL (0-0.2); Basophils % (A) 0 %; Eosinophils # (A) 0.2 k/uL (0-0.7); Eosinophils % (A) 1 %; HGB 15.6 gm/dL (13.0-17.5); Hyperchromasia Slight; Lymphocytes # (A) 1.4 k/uL (1.0-4.8); Lymphocytes % (A) 6 %; MCH 29.6 pg (25.0-35.0); MCHC 35.5 g/dL (31.0-37.0); MCV 83.2 fL (80.0-100.0); Mean Platelet Volume 8.4; Monocytes # (A) 1.6 k/uL (0-1.0); Monocytes % (A) 6 %; Neutrophils % (A) 86 %; Platelet Count 784 k/uL (150-450); RBC 5.29 m/uL (4.30-5.90); RDW 13.3 % (11.5-15.5); WBC 24.4 k/uL (3.8-10.6)
[2023-07-23 01:27] LABS: ALT 37 U/L (4-49); AST 28 U/L (17-59); African American GFR (CKD) >90 (>60 ml/min/1.73 sqM); Albumin 4.2 g/dL (3.5-5.0); Alkaline Phosphatase 96 U/L (38-126); Amylase 85 U/L (30-110); Anion Gap 16 mmol/L; Blood Urea Nitrogen 9 mg/dL (9-20); Calcium 9.8 mg/dL (8.4-10.2); Carbon Dioxide 17 mmol/L (22-30); Chloride 106 mmol/L (98-107); Glucose 115 mg/dL (74-99); Lipase 72 U/L (23-300); Non-African American GFR(CKD) >90 (>60 ml/min/1.73 sqM); Potassium 3.8 mmol/L (3.5-5.1); Sodium 139 mmol/L (137-145); Total Bilirubin 1.2 mg/dL (0.2-1.3); Total Protein 6.4 g/dL (6.3-8.2)
--- NOTE | 2023-07-23 02:47 | CT ---
EXAM: CT Abdomen and Pelvis Without Intravenous Contrast CLINICAL HISTORY: ITS.REASON CT Reason: Hx chrons. abd pain. TECHNIQUE: Axial computed tomography images of the abdomen and pelvis without intravenous contrast. CTDI is 8.1 mGy and DLP is 472.8 mGy-cm. This CT exam was performed using one or more of the following dose reduction techniques: automated exposure control, adjustment of the mA and/or kV according to patient size, and/or use of iterative reconstruction technique. COMPARISON: CT abdomen pelvis 05/14/2023 FINDINGS: ABDOMEN: Liver: Unremarkable. Gallbladder and bile ducts: Unremarkable. Pancreas: Unremarkable. Spleen: Unremarkable. Adrenals: Unremarkable. Kidneys and ureters: Unremarkable. No obstructing stones. No hydronephrosis. Stomach and bowel: High-grade small bowel obstruction. Transition point within the distal ileum located in the left lower quadrant. Distal to this the ileum is thickened and stenotic in appearance. The small bowel is distended up to 4.5 cm. No pneumatosis. PELVIS: Appendix: No findings to suggest acute appendicitis. Bladder: Unremarkable. Reproductive: Large right hydrocele. ABDOMEN and PELVIS: Intraperitoneal space: No abscess. No free air. No significant fluid collection. Bones/joints: No acute fracture. Soft tissues: Unremarkable. Vasculature: Unremarkable. Lymph nodes: Mesenteric edema and adenopathy. IMPRESSION: 1. High-grade small bowel obstruction. Transition point within the distal ileum located in the left lower quadrant. Distal to this the ileum is thickened and stenotic in appearance. Findings are very similar to the prior CT. 2. Mesenteric edema and adenopathy. 3. Large right hydrocele.
[2023-07-23 02:52] LABS: Appearance,Urine Clear (Clear); Bilirubin,Urine Negative (Negative); Blood,Urine Negative (Negative); Color,Urine Yellow; Glucose,Urine (UA) Negative (Negative); Ketones,Urine 1+ (Negative); Leukocyte Esterase,Urine Negative (Negative); Nitrite,Urine Negative (Negative); PH, Urine 5.5 (5.0-8.0); Protein,Urine Trace (Negative); Specific Gravity,Urine 1.031 (1.001-1.035); Urobilinogen,Urine <2.0 mg/dL (<2.0)
--- NOTE | 2023-07-23 03:46 | ED ---
Abdominal Pain HPI - General Chief Complaint: Abdominal Pain Stated Complaint: n/v abd pain Time Seen by Provider: 07/22/23 23:40 Source: patient Mode of arrival: ambulatory Limitations: no limitations - History of Present Illness Initial Comments: 33-year-old male with a past medical history significant for Crohn's disease presenting to the ED with a chief complaint of abdominal pain. Patient states for the past 2-3 days he has had abdominal pain which feels similar to history of Crohn's disease. Since onset, patient reports worsening in severity and has become nauseous and started to vomit. Denies chest pain . No urinary symptoms. No other complaints. - Related Data Home Medications Medication Instructions Recorded Confirmed Ustekinumab [Stelara] 90 mg SQ Q56D 05/14/23 05/14/23 Previous Rx's Medication Instructions Recorded Amoxic-Pot Clav 875-125Mg 1 tab PO Q12HR 4 Days #8 tab 05/17/23 [Augmentin 875-125] Pantoprazole [Protonix] 40 mg PO DAILY #90 tab 05/17/23 predniSONE See Taper PO DIRECTED #70 tab 05/17/23 Allergies Allergy/AdvReac Type Severity Reaction Status Date / Time No Known Allergies Allergy Verified 07/22/23 23:31 Review of Systems ROS Statement: Those systems with pertinent positive or pertinent negative responses have been documented in the HPI. ROS Other: All systems not noted in ROS Statement are negative. Past Medical History Additional Past Medical History / Comment(s): Crohn's disease History of Any Multi-Drug Resistant Organisms: None Reported Additional Past Surgical History / Comment(s): spleen removed at 8 years old Past Anesthesia/Blood Transfusion Reactions: No Reported Reaction Past Psychological History: No Psychological Hx Reported Smoking Status: Never smoker Past Alcohol Use History: None Reported Past Drug Use History: None Reported - Past Family History Mother Additional Family Medical History / Comment(s): IBS Father Family Medical History: Cancer, Coronary Artery Disease (CAD) Additional Family Medical History / Comment(s): Father had prostate cancer, CABG, hereditary speen disease. family Family Medical History: No Reported History General Exam Limitations: no limitations General appearance: alert, in distress (Appears to be in pain) ENT exam: Present: mucous membranes moist Respiratory exam: Present: normal lung sounds bilaterally Cardiovascular Exam: Present: regular rate, normal rhythm GI/Abdominal exam: Present: soft (Diffuse tenderness palpation.) Neurological exam: Present: alert, oriented X3 Skin exam: Present: warm, dry Course Vital Signs 07/22/23 07/23/23 07/23/23 23:29 01:15 03:00 Temperature 97.9 F Pulse Rate 93 88 102 H Respiratory 18 20 20 Rate Blood Pressure 148/96 143/91 O2 Sat by Pulse 97 95 98 Oximetry Medical Decision Making - Medical Decision Making Was pt. sent in by a medical professional or institution (, PA, WAX CUTTER, urgent care, hospital, or assisted...) When possible be specific @ -No Did you speak to anyone other than the patient for history (EMS, parent, family, police, friend...)? What history was obtained from this source @ -No Did you review nursing and triage notes (agree or disagree)? Why? @ -I reviewed and agree with nursing and triage notes Were old charts reviewed (outside hosp., previous admission, EMS record, old EKG, old radiological studies, urgent care reports/EKG's, assisted records)? Report findings @ -Review of prior medical records shows history of Crohn's disease. Differential Diagnosis (chest pain, altered mental status, abdominal pain women, abdominal pain men, vaginal bleeding, weakness, fever, dyspnea, syncope, headache, dizziness, GI bleed, back pain, seizure, CVA, palpatations, mental health, musculoskeletal)? @ -Differential Abdominal Pain Men: Appendicitis, cholecystitis, diverticulosis, ischemic bowel, pancreatitis, hepatitis, UTI, gastroenteritis, AAA, incarcerated hernia, bowel obstruction, constipation, inflammatory bowel, hepatitis, peptic ulcer disease, splenic infarction, perforated viscus, testicular torsion, this is not meant to be an all-inclusive list EKG interpreted by me (3pts min.). @ -None X-rays interpreted by me (1pt min.). @ -None done CT interpreted by me (1pt min.). @ -CT interpreted by me showing small bowel obstruction with transition point in the sternal area in the left lower quadrant. U/S interpreted by me (1pt. min.). @ -None done What testing was considered but not performed or refused? (CT, X-rays, U/S, l abs)? Why? @ -None What meds were considered but not given or refused? Why? @ -None Did you discuss the management of the patient with other professionals (professionals i.e. Dr., PA, WAX CUTTER, lab, RT, psych nurse, social media strategist, it quality analyst, teacher, booking officer, case mgr)? Give summary @ - Case discussed with Dr. Schaefer of general surgery who recommends the patient be transferred where GI services are available. Case discussed with Dr. Trimble of GI, who reported that he would be willing to take patient. Spoke to Dr. Nuno in the ED who accepted patient as an ED to ED transfer. Was smoking cessation discussed for >3mins.? @ -No Was critical care preformed (if so, how long)? @ -No Were there social determinants of health that impacted care today? How? (Homelessness, low income, unemployed, alcoholism, drug addiction, transportation, low edu. Level, literacy, decrease access to med. care, custodial, rehab)? @ -No Was there de-escalation of care discussed even if they declined (Discuss DNR or withdrawal of care, Hospice)? DNR status @ -No What co-morbidities impacted this encounter? (DM, HTN, Smoking, COPD, CAD, Cancer, CVA, ARF, Chemo, Hep., AIDS, mental health diagnosis, sleep apnea, morbid obesity)? @ -Chron's disease Was patient admitted / discharged? Hospital course, mention meds given and route, prescriptions, significant lab abnormalities, going to OR and other pertinent info. @ -Transfer 33-year-old male with past medical history significant for Crohn's presenting today with abdominal pain, nausea or vomiting. CT does show high-grade small bowel obstruction. Laboratory studies significant for an elevated white blood cell count at 4.4. Patient will be transferred to [facility] further treatment. Discussed plan of care with patient who is in agreement. Undiagnosed new problem with uncertain prognosis? @ -No Drug Therapy requiring intensive monitoring for toxicity (Heparin, Nitro, Insulin, Cardizem)? @ -No Were any procedures done? @ -No Diagnosis/symptom? @ -Crohn's disease, high-grade small bowel obstruction Acute, or Chronic, or Acute on Chronic? @ -Acute Uncomplicated (without systemic symptoms) or Complicated (systemic symptoms)? @ -Complicated Side effects of treatment? @ -No Exacerbation, Progression, or Severe Exacerbation? @ -No Poses a threat to life or bodily function? How? (Chest pain, [place], [place], pneumonia, PE, COPD, DKA, ARF, appy, cholecystitis, CVA, Diverticulitis, Homicidal, Suicidal, threat to staff... and all critical care pts) @ -Possibly - Lab Data Result diagrams: 07/23/23 00:03 07/23/23 00:03 Lab Results 07/23/23 07/23/23 07/23/23 Range/Units 00:03 00:03 00:03 WBC 24.4 H (3.8-10.6) k/uL RBC 5.29 (4.30-5.90) m/uL Hgb 15.6 (13.0-17.5) gm/dL Hct 44.0 (39.0-53.0) % MCV 83.2 (80.0-100.0) fL MCH 29.6 (25.0-35.0) pg MCHC 35.5 (31.0-37.0) g/dL RDW 13.3 (11.5-15.5) % Plt Count 784 H (150-450) k/uL MPV 8.4 Neutrophils % 86 % Lymphocytes % 6 % Monocytes % 6 % Eosinophils % 1 % Basophils % 0 % Neutrophils # 21.0 H (1.3-7.7) k/uL Lymphocytes # 1.4 (1.0-4.8) k/uL Monocytes # 1.6 H (0-1.0) k/uL Eosinophils # 0.2 (0-0.7) k/uL Basophils # 0.1 (0-0.2) k/uL Hyperchromasia Slight Sodium 139 (137-145) mmol/L Potassium 3.8 (3.5-5.1) mmol/L Chloride 106 (98-107) mmol/L Carbon Dioxide 17 L (22-30) mmol/L Anion Gap 16 mmol/L BUN 9 (9-20) mg/dL Creatinine 0.67 (0.66-1.25) mg/dL Est GFR (CKD-EPI)AfAm >90 (>60 ml/min/1.73 sqM) Est GFR (CKD-EPI)NonAf >90 (>60 ml/min/1.73 sqM) Glucose 115 H (74-99) mg/dL Calcium 9.8 (8.4-10.2) mg/dL Total Bilirubin 1.2 (0.2-1.3) mg/dL AST 28 (17-59) U/L ALT 37 (4-49) U/L Alkaline Phosphatase 96 (38-126) U/L Total Protein 6.4 (6.3-8.2) g/dL Albumin 4.2 (3.5-5.0) g/dL Amylase 85 (30-110) U/L Lipase 72 (23-300) U/L Urine Color Yellow Urine Appearance Clear (Clear) Urine pH 5.5 (5.0-8.0) Ur Specific [place] 1.031 (1.001-1.035) Urine Protein Trace H (Negative) Urine Glucose (UA) Negative (Negative) Urine Ketones 1+ H (Negative) Urine Blood Negative (Negative) Urine Nitrite Negative (Negative) Urine Bilirubin Negative (Negative) Urine Urobilinogen <2.0 (<2.0) mg/dL Ur Leukocyte Esterase Negative (Negative) Disposition Clinical Impression: Crohn disease, Small bowel obstruction Disposition: OTHER INSTITUTION NOT DEFINED Referrals: None,Stated [Primary Care Provider] - 1-2 days Time of Disposition: 03:30 - Out of Hospital Transfer - Req. Specs Out of Hospital Transfer - Requested Specifics: Other Emergency Center ([facility]
[2023-07-23 04:08] VITALS: BP 158/88; PULSE 92; RESP 18
== END 2023-07-23 04:29 | disposition other institution (70) ==
LOC: EC 23:09
DX: K50.012 Crohn's disease of small intestine with intestinal obstruction (principal)
CPT/HCPCS: 36415; 80053; 82150; 83690; 85025; 81003; 74176; 99285; 96374; 96375 ×2; 96376 ×2; 96361; J2270; J2405; J1170

== ENCOUNTER 2023-08-11 06:27 | Emergency (ER) | payer BC ==
--- NOTE | 2023-08-11 07:35 | ED ---
General Adult HPI - General Chief complaint: Abdominal Pain Stated complaint: Abdominal pain Time Seen by Provider: 08/11/23 06:43 Source: patient Mode of arrival: ambulatory Limitations: no limitations - History of Present Illness Initial comments: Quick note: Patient seen for advanced triage purposes. Patient has a history of Crohn's disease. Last seen here 07/22/23 and transferred to [facility] for SBO per recommendations from Dr Schaefer as GI was not available. Patient woke up around 230 this morning with abdominal pain. Pain is currently a 6-7/10. He was nauseous earlier but that has since resolved. No vomiting. He has not had any fevers. He has not really passed gas this morning but he did have a bowel movement this morning. This episode is not as bad as last admission. He takes Stellara for Crohn's. HPI: see above - Related Data Home Medications Medication Instructions Recorded Confirmed Ustekinumab [Stelara] 90 mg SQ Q56D 05/14/23 05/14/23 Previous Rx's Medication Instructions Recorded Amoxic-Pot Clav 875-125Mg 1 tab PO Q12HR 4 Days #8 tab 05/17/23 [Augmentin 875-125] Pantoprazole [Protonix] 40 mg PO DAILY #90 tab 05/17/23 predniSONE See Taper PO DIRECTED #70 tab 05/17/23 Allergies Allergy/AdvReac Type Severity Reaction Status Date / Time No Known Allergies Allergy Verified 07/22/23 23:31 Review of Systems ROS Statement: Those systems with pertinent positive or pertinent negative responses have been documented in the HPI. ROS Other: All systems not noted in ROS Statement are negative. Past Medical History Additional Past Medical History / Comment(s): Crohn's disease History of Any Multi-Drug Resistant Organisms: None Reported Additional Past Surgical History / Comment(s): spleen removed at 8 years old Past Anesthesia/Blood Transfusion Reactions: No Reported Reaction Past Psychological History: No Psychological Hx Reported Smoking Status: Never smoker Past Alcohol Use History: None Reported Past Drug Use History: None Reported - Past Family History Mother Additional Family Medical History / Comment(s): IBS Father Family Medical History: Cancer, Coronary Artery Disease (CAD) Additional Family Medical History / Comment(s): Father had prostate cancer, CABG, hereditary speen disease. family Family Medical History: No Reported History General Exam Limitations: no limitations General appearance: alert, in no apparent distress Head exam: Present: atraumatic Eye exam: Present: normal appearance, PERRL, EOMI. Absent: scleral icterus, conjunctival injection ENT exam: Present: normal exam, mucous membranes moist Neck exam: Present: normal inspection, full ROM. Absent: tenderness Respiratory exam: Present: normal lung sounds bilaterally. Absent: respiratory distress, wheezes Cardiovascular Exam: Present: regular rate, normal rhythm, normal heart sounds GI/Abdominal exam: Present: tenderness, guarding, diminished bowel sounds. Absent: rigid Neurological exam: Present: alert Course Vital Signs 08/11/23 08/11/23 08/11/23 06:37 08:50 10:14 Temperature 98 F 98 F Pulse Rate 99 68 80 Respiratory 18 18 18 Rate Blood Pressure 144/99 134/83 130/83 O2 Sat by Pulse 98 98 98 Oximetry Medical Decision Making - Medical Decision Making Was pt. sent in by a medical professional or institution (, PA, MANAGER OPERATIONS AND PROCUREMENT, urgent care, hospital, or penitentiary...) When possible be specific @ -no Did you speak to anyone other than the patient for history (EMS, parent, family, police, friend...)? What history was obtained from this source @ -No Did you review nursing and triage notes (agree or disagree)? Why? @ -[I reviewed and agree with nursing and triage notes] Were old charts reviewed (outside hosp., previous admission, EMS record, old EKG, old radiological studies, urgent care reports/EKG's, penitentiary records)? Report findings @ -Previous computed tomography scan's inpatient records ER reports reviewed Differential Diagnosis (chest pain, altered mental status, abdominal pain women, abdominal pain men, vaginal bleeding, weakness, fever, dyspnea, syncope, headache, dizziness, GI bleed, back pain, seizure, CVA, palpatations, mental health)? @ -Crohn's flare, small bowel obstruction, abscess, bowel perforation EKG interpreted by me (3pts min.). @ -None X-rays interpreted by me (1pt min.). @ -Small bowel obstruction CT interpreted by me (1pt min.). @ -, Bowel obstruction without evidence of abscess U/S interpreted by me (1pt. min.). @ -[None done] What testing was considered but not performed or refused? (CT, X-rays, U/S, labs)? Why? @ -[None] What meds were considered but not given or refused? Why? @ -[None] Did you discuss the management of the patient with other professionals (professionals i.e. , PA, MANAGER OPERATIONS AND PROCUREMENT, lab, RT, psych nurse, social sciences department chair, polyethylene combiner, teacher, administrative hearing officer, correctional case records supervisor)? Give summary @ -Discussed with surgeon Dr. Quiroga as well as outside ER physician Dr. Antony Was smoking cessation discussed for >3mins.? @ -[No] Was critical care preformed (if so, how long)? @ -[No] Were there social determinants of health that impacted care today? How? (Homelessness, low income, unemployed, alcoholism, drug addiction, transportation, low edu. Level, literacy, decrease access to med. care, fci, rehab)? @ -[No] Was there de-escalation of care discussed even if they declined (Discuss DNR or withdrawal of care, Hospice)? DNR status @ -[No] What co-morbidities impacted this encounter? (DM, HTN, Smoking, COPD, CAD, Cancer, CVA, ARF, Chemo, Hep., AIDS, mental health diagnosis, sleep apnea, morbid obesity)? @ -Crohn's disease Was patient admitted / discharged? Hospital course, mention meds given and route, prescriptions, significant lab abnormalities, going to OR and other pertinent info. @ -Vitals are stable. Patient does appear in pain. Abdominal exam is tender. CBC does show an elevated white count of 36.3 with thrombocytosis of 772. Lactic acid 2.7. Xray showed obstruction. however given significant leukocytosis, CT abdomen and pelvis was obtained and shows a high-grade bowel obstruction without abscess. Discussed with Dr. Quiroga who recommends transfer to tertiary care facility given no GI coverage at this hospital. [facility] not excepting transferred at this time[facility] [place] Discuss[facility] with Dr. Antony who does accept the patient. Undiagnosed new problem with uncertain prognosis? @ -[No] Drug Therapy requiring intensive monitoring for toxicity (Heparin, Nitro, Insulin, Cardizem)? @ -[No] Were any procedures done? @ -[No] Diagnosis/symptom? @ -Crohn's disease, small bowel obstruction, leukocytosis, thrombocytosis Acute, or Chronic, or Acute on Chronic? @ -Acute on chronic Uncomplicated (without systemic symptoms) or Complicated (systemic symptoms)? @ -complicated Side effects of treatment? @ -[No] Exacerbation, Progression, or Severe Exacerbation? @ -[No] Poses a threat to life or bodily function? How? (Chest pain, [place], [place], pneumonia, PE, COPD, DKA, ARF, appy, cholecystitis, CVA, Diverticulitis, Homicidal, Suicidal, threat to staff... and all critical care pts) @ -[No] - Lab Data Result diagrams: 08/11/23 08:02 08/11/23 08:02 Lab Results 08/11/23 08/11/23 08/11/23 Range/Units 08:02 08:02 08:02 WBC 36.3 H (3.8-10.6) k/uL RBC 5.06 (4.30-5.90) m/uL Hgb 14.9 (13.0-17.5) gm/dL Hct 42.3 (39.0-53.0) % MCV 83.5 (80.0-100.0) fL MCH 29.4 (25.0-35.0) pg MCHC 35.3 (31.0-37.0) g/dL RDW 13.9 (11.5-15.5) % Plt Count 772 H (150-450) k/uL MPV 8.2 Neutrophils % 93 % Lymphocytes % 1 % Monocytes % 5 % Eosinophils % 1 % Basophils % 0 % Neutrophils # 33.6 H (1.3-7.7) k/uL Lymphocytes # 0.5 L (1.0-4.8) k/uL Monocytes # 1.8 H (0-1.0) k/uL Eosinophils # 0.2 (0-0.7) k/uL Basophils # 0.0 (0-0.2) k/uL Manual Slide Review Performed Hyperchromasia Slight Poikilocytosis (manual Present Sodium 139 (137-145) mmol/L Potassium 3.7 (3.5-5.1) mmol/L Chloride 105 (98-107) mmol/L Carbon Dioxide 25 (22-30) mmol/L Anion Gap 9 mmol/L BUN 11 (9-20) mg/dL Creatinine 0.66 (0.66-1.25) mg/dL Est GFR (CKD-EPI)AfAm >90 (>60 ml/min/1.73 sqM) Est GFR (CKD-EPI)NonAf >90 (>60 ml/min/1.73 sqM) Glucose 107 H (74-99) mg/dL Plasma Lactic Acid Johny 2.7 H* (0.7-2.0) mmol/L Calcium 9.5 (8.4-10.2) mg/dL Total Bilirubin 1.2 (0.2-1.3) mg/dL AST 390 H (17-59) U/L ALT 130 H (4-49) U/L Alkaline Phosphatase 66 (38-126) U/L Total Protein 6.0 L (6.3-8.2) g/dL Albumin 3.8 (3.5-5.0) g/dL Urine Color Urine Appearance (Clear) Urine pH (5.0-8.0) Ur Specific [place] (1.001-1.035) Urine Protein (Negative) Urine Glucose (UA) (Negative) Urine Ketones (Negative) Urine Blood (Negative) Urine Nitrite (Negative) Urine Bilirubin (Negative) Urine Urobilinogen (<2.0) mg/dL Ur Leukocyte Esterase (Negative) Urine RBC (0-5) /hpf Urine WBC (0-5) /hpf Urine Mucus (None) /hpf 08/11/23 Range/Units 08:49 WBC (3.8-10.6) k/uL RBC (4.30-5.90) m/uL Hgb (13.0-17.5) gm/dL Hct (39.0-53.0) % MCV (80.0-100.0) fL MCH (25.0-35.0) pg MCHC (31.0-37.0) g/dL RDW (11.5-15.5) % Plt Count (150-450) k/uL MPV Neutrophils % % Lymphocytes % % Monocytes % % Eosinophils % % Basophils % % Neutrophils # (1.3-7.7) k/uL Lymphocytes # (1.0-4.8) k/uL Monocytes # (0-1.0) k/uL Eosinophils # (0-0.7) k/uL Basophils # (0-0.2) k/uL Manual Slide Review Hyperchromasia Poikilocytosis (manual Sodium (137-145) mmol/L Potassium (3.5-5.1) mmol/L Chloride (98-107) mmol/L Carbon Dioxide (22-30) mmol/L Anion Gap mmol/L BUN (9-20) mg/dL Creatinine (0.66-1.25) mg/dL Est GFR (CKD-EPI)AfAm (>60 ml/min/1.73 sqM) Est GFR (CKD-EPI)NonAf (>60 ml/min/1.73 sqM) Glucose (74-99) mg/dL Plasma Lactic Acid Johny (0.7-2.0) mmol/L Calcium (8.4-10.2) mg/dL Total Bilirubin (0.2-1.3) mg/dL AST (17-59) U/L ALT (4-49) U/L Alkaline Phosphatase (38-126) U/L Total Protein (6.3-8.2) g/dL Albumin (3.5-5.0) g/dL Urine Color Yellow Urine Appearance Clear (Clear) Urine pH 6.0 (5.0-8.0) Ur Specific [place] 1.037 H (1.001-1.035) Urine Protein 1+ H (Negative) Urine Glucose (UA) Negative (Negative) Urine Ketones Negative (Negative) Urine Blood Negative (Negative) Urine Nitrite Negative (Negative) Urine Bilirubin Negative (Negative) Urine Urobilinogen 2.0 (<2.0) mg/dL Ur Leukocyte Esterase Negative (Negative) Urine RBC <1 (0-5) /hpf Urine WBC 3 (0-5) /hpf Urine Mucus Many H (None) /hpf Disposition Clinical Impression: Crohn's disease, Abdominal pain, Small bowel obstruction, Thrombocytosis Disposition: OTHER INSTITUTION NOT DEFINED Is patient prescribed a controlled substance at d/c from ED?: No Time of Disposition: 10:54 - Out of Hospital Transfer - Req. Specs Out of Hospital Transfer - Requested Specifics: Other Emergency Center ([facility]
[2023-08-11] MEDS ORDERED: ONDANSETRON ODT 4 MG TAB PO STA (07:41)
[2023-08-11] MEDS ORDERED: HYDROmorphone 0.5 MG/0.5 ML SYRINGE IM STA (07:41)
[2023-08-11] MEDS ORDERED: SODIUM CHLORIDE 0.9% 500 ML 500 ML IV STA (07:55)
[2023-08-11] MEDS ORDERED: SODIUM CHLORIDE 0.9% 1,000 ML IV STA (07:56)
[2023-08-11] MEDS ORDERED: HYDROmorphone 0.5 MG/0.5 ML SYRINGE IVP STA (08:04)
[2023-08-11] MEDS ORDERED: ONDANSETRON 4 MG/2 ML VIAL IVP STA (08:05)
[2023-08-11 08:14] LABS: Basophils % (A) 0 %; Eosinophils # (A) 0.2 k/uL (0-0.7); Eosinophils % (A) 1 %; HCT 42.3 % (39.0-53.0); HGB 14.9 gm/dL (13.0-17.5); Hyperchromasia Slight; Lymphocytes # (A) 0.5 k/uL (1.0-4.8); Lymphocytes % (A) 1 %; MCH 29.4 pg (25.0-35.0); MCHC 35.3 g/dL (31.0-37.0); MCV 83.5 fL (80.0-100.0); Mean Platelet Volume 8.2; Monocytes # (A) 1.8 k/uL (0-1.0); Monocytes % (A) 5 %; Neutrophils # (A) 33.6 k/uL (1.3-7.7); Neutrophils % (A) 93 %; Platelet Count 772 k/uL (150-450); RBC 5.06 m/uL (4.30-5.90); RDW 13.9 % (11.5-15.5); WBC 36.3 k/uL (3.8-10.6)
--- NOTE | 2023-08-11 08:27 | XR ---
EXAMINATION TYPE: XR KUB DATE OF EXAM: 08/11/2023 COMPARISON: 09/28/2022 HISTORY: Pain TECHNIQUE: Single supine KUB image of the abdomen is obtained FINDINGS: Dilated loops of small bowel with air-fluid levels suspicious for distal small bowel obstruction. Dil ated bowel loops measure up to 5.6 cm. No convincing evidence for pneumoperitoneum. No unusual calcifications. The lung bases are clear. The osseous structures are intact. IMPRESSION: 1. Dilated loops of small bowel with air-fluid levels suspicious for distal small bowel obstruction. Dilated bowel loops measure up to 5.6 cm.
[2023-08-11 08:30] LABS: ALT 130 U/L (4-49); AST 390 U/L (17-59); African American GFR (CKD) >90 (>60 ml/min/1.73 sqM); Albumin 3.8 g/dL (3.5-5.0); Alkaline Phosphatase 66 U/L (38-126); Anion Gap 9 mmol/L; Blood Urea Nitrogen 11 mg/dL (9-20); Calcium 9.5 mg/dL (8.4-10.2); Carbon Dioxide 25 mmol/L (22-30); Chloride 105 mmol/L (98-107); Glucose 107 mg/dL (74-99); Non-African American GFR(CKD) >90 (>60 ml/min/1.73 sqM); Potassium 3.7 mmol/L (3.5-5.1); Sodium 139 mmol/L (137-145); Total Bilirubin 1.2 mg/dL (0.2-1.3)
[2023-08-11 08:46] LABS: Poikilocytosis (M) Present
[2023-08-11 09:07] LABS: Appearance,Urine Clear (Clear); Bilirubin,Urine Negative (Negative); Blood,Urine Negative (Negative); Color,Urine Yellow; Glucose,Urine (UA) Negative (Negative); Ketones,Urine Negative (Negative); Leukocyte Esterase,Urine Negative (Negative); Mucus,Urine Many /hpf; Nitrite,Urine Negative (Negative); Protein,Urine 1+ (Negative); RBC,Urine <1 /hpf (0-5); Specific Gravity,Urine 1.037 (1.001-1.035); WBC,Urine 3 /hpf (0-5)
--- NOTE | 2023-08-11 10:06 | CT ---
EXAMINATION TYPE: CT abdomen pelvis w con DATE OF EXAM: 08/11/2023 COMPARISON: 07/23/2023 HISTORY: abdominal pain h/o crohn's disease CT DLP: 727 mGycm CONTRAST: CT scan of the abdomen and pelvis is performed without Oral Contrast and with IV Contrast, patient in jected with 100 mL of Isovue 300. FINDINGS: LUNG BASES-: No visible nodule. No infiltrate. LIVER/GB: No calcified gallstones. No space occupying hepatic lesion. Biliary tree is of normal ca liber. PANCREAS: No inflammation. No distinct mass. SPLEEN: No splenic enlargement. No lesion seen. ADRENALS: No nodule. No thickening. KIDNEYS/BLADDER: No hydronephrosis. No nephrolithiasis. No distinct renal mass. Urinary bladder g rossly unremarkable. BOWEL: Again noted are dilated loops of ileum measuring up to 4.1 cm with thickened case, mesenteric edema and air fluid levels. Stenosis of the distal ileum. High-grade obstruction again noted relativ kandy similar to prior study. No evidence for definite fistulous communication or abscess. No evidence for pneumoperitoneum. Small amount of ascites seen within the right hemipelvis. GENITAL ORGANS: Large right-sided hydrocele noted. LYMPH NODES: No greater than 1cm abdominal or pelvic lymph nodes are appreciated. AORTA: No significant abnormality. OSSEOUS STRUCTURES: No significant abnormality is seen. OTHER: No significant additional abnormality is seen. IMPRESSION: 1. Again noted is high-grade distal small bowel obstruction with wall thickening and mesenteric edema . Transition suspected at the thickened terminal ileum. No evidence for fistula or free air. No absce ss appreciated.
[2023-08-11] MEDS ORDERED: HYDROmorphone 1 MG/ML 1 ML SYRINGE IVP STA (10:10)
[2023-08-11 13:17] VITALS: BP 123/73; PULSE 77; RESP 16; TEMP 98
== END 2023-08-11 13:04 | disposition other institution (70) ==
LOC: EC 06:27
DX: K50.012 Crohn's disease of small intestine with intestinal obstruction (principal); D75.839 Thrombocytosis, unspecified; D72.829 Elevated white blood cell count, unspecified
CPT/HCPCS: 36415; 80053; 83605; 85025; 81001; 74018; 74177; 99285; 96374; 96375; 96376; 96361; J2405; J1170 ×2; Q9967

== ENCOUNTER 2023-09-14 05:49 | Emergency (ER) | payer BC ==
[2023-09-14] MEDS ORDERED: SODIUM CHLORIDE 0.9% 1,000 ML IV ONE ×2 (06:16→07:34)
[2023-09-14] MEDS ORDERED: ONDANSETRON 4 MG/2 ML VIAL IVP STA (06:16)
[2023-09-14] MEDS ORDERED: KETOROLAC 15 MG/ML 1 ML VIAL IVP STA (06:16)
--- NOTE | 2023-09-14 06:52 | ED ---
Abdominal Pain HPI - General Chief Complaint: Abdominal Pain Stated Complaint: Chrons Flair up Time Seen by Provider: 09/14/23 06:09 Source: patient, RN notes reviewed Mode of arrival: ambulatory Limitations: no limitations - History of Present Illness Initial Comments: 33-year-old male with a past medical history significant for Crohn's presents to the emergency department with a chief complaint of abdominal pain. Patient reports generalized sharp abdominal pain that started approximately 03:00 this morning. He reports that it occurred shortly after having a bowel movement. He is not currently on any steroids for his Crohn's management. He denies any known fevers, hematemesis, melena or hematochezia. He does report associated nausea and vomiting. Denies any recent alcohol use. - Related Data Home Medications Medication Instructions Recorded Confirmed No Known Home Medications 09/14/23 09/14/23 Allergies Allergy/AdvReac Type Severity Reaction Status Date / Time No Known Allergies Allergy Verified 09/14/23 09:33 Review of Systems ROS Statement: Those systems with pertinent positive or pertinent negative responses have been documented in the HPI. ROS Other: All systems not noted in ROS Statement are negative. Past Medical History Additional Past Medical History / Comment(s): Crohn's disease History of Any Multi-Drug Resistant Organisms: None Reported Additional Past Surgical History / Comment(s): spleen removed at 8 years old Past Anesthesia/Blood Transfusion Reactions: No Reported Reaction Past Psychological History: No Psychological Hx Reported Smoking Status: Never smoker Past Alcohol Use History: None Reported Past Drug Use History: None Reported - Past Family History Mother Additional Family Medical History / Comment(s): IBS Father Family Medical History: Cancer, Coronary Artery Disease (CAD) Additional Family Medical History / Comment(s): Father had prostate cancer, CABG, hereditary speen disease. family Family Medical History: No Reported History General Exam - General Exam Comments Initial Comments: General: Alert, in no acute distress Head: atraumatic normocephalic. Eyes PERRL, EOMI intact, mucous membranes moist Respiratory: Lungs clear to auscultation bilaterally Cardiovascular: Heart rate regular rhythm Abdominal: Soft without guarding or rebound Extremities: Normal inspection with full range of motion and normal capillary refill Neuroogic: alert and oriented 3, CN II-XII intact, able to ambulate with steady gait Skin: warm dry and intact with normal color Limitations: no limitations Course Vital Signs 09/14/23 09/14/23 09/14/23 05:51 07:40 08:45 Temperature 98.1 F 98.2 F Pulse Rate 96 74 90 Respiratory 22 20 19 Rate Blood Pressure 142/122 133/90 130/77 O2 Sat by Pulse 100 100 98 Oximetry 09/14/23 09/14/23 09/14/23 09:04 09:34 10:07 Temperature Pulse Rate 76 74 73 Respiratory 17 18 17 Rate Blood Pressure 127/75 127/84 144/88 O2 Sat by Pulse 97 96 95 Oximetry - Reevaluation(s) Reevaluation #1: 09/14/23 08:[address] Feliciano who recommends transferring the patient to [facility] due to lack of GI coverage at [facility]. Reevaluation #2: 09/14/23 08:58 Case is discussed with Muriel Lima. Per transfer center and they will return to GI and ED to see this patient is eligible for transfer. Reevaluation #3: 09/14/23 09:44 [facility] refusing transfer due to high census Reevaluation #4: 09/14/23 10:[address] [facility] who will check bed census in order for transfer 09/14/23 10:[address] Capps, who agrees and accepts the patient for ER to ER transfer Medical Decision Making - Medical Decision Making Was pt. sent in by a medical professional or institution (, PA, SMEARER, urgent care, hospital, or custodial...) When possible be specific @ -[No] Did you speak to anyone other than the patient for history (EMS, parent, family, police, friend...)? What history was obtained from this source @ -[No] Did you review nursing and triage notes (agree or disagree)? Why? @ -[I reviewed and agree with nursing and triage notes] Were old charts reviewed (outside hosp., previous admission, EMS record, old EKG, old radiological studies, urgent care reports/EKG's, custodial records)? Report findings @ -[No old charts were reviewed] Differential Diagnosis (chest pain, altered mental status, abdominal pain women, abdominal pain men, vaginal bleeding, weakness, fever, dyspnea, syncope, headache, dizziness, GI bleed, back pain, seizure, CVA, palpatations, mental health, musculoskeletal)? @ -[not applicable] EKG interpreted by me (3pts min.). @ -[As above] X-rays interpreted by me (1pt min.). @ -[None done] CT interpreted by me (1pt min.). @ -Moderate recurrent enteritis involving the mid to distal small bowel with concurrent high-grade small bowel obstruction transition point in the left paramedian and mid abdomen with obstruction secondary to inflammatory stricture there is reactive mesenteric edema with mild pelvic free fluid and mesenteric adenopathy U/S interpreted by me (1pt. min.). @ -[None done] What testing was considered but not performed or refused? (CT, X-rays, U/S, labs)? Why? @ -[None] What meds were considered but not given or refused? Why? @ -[None] Did you discuss the management of the patient with other professionals (professionals i.e. , PA, SMEARER, lab, RT, psych nurse, social contact worker, neuropsychology division chief, teacher, campus police officer, case finisher)? Give summary @ -Case discussed with Dr. Feliciano who recommends transferring the patient to facility with GI coverage Attempted transfer to [facility] who refuses patient due to high patient ce nsus Case discussed with Dr. Capps, ED attending at [facility] [place], [place] who agrees and accepts the patient for ER to ER transfer. Was smoking cessation discussed for >3mins.? @ -[No] Was critical care preformed (if so, how long)? @ -[No] Were there social determinants of health that impacted care today? How? (Homelessness, low income, unemployed, alcoholism, drug addiction, transportation, low edu. Level, literacy, decrease access to med. care, long-term, rehab)? @ -[No] Was there de-escalation of care discussed even if they declined (Discuss DNR or withdrawal of care, Hospice)? DNR status @ -[No] What co-morbidities impacted this encounter? (DM, HTN, Smoking, COPD, CAD, Cancer, CVA, ARF, Chemo, Hep., AIDS, mental health diagnosis, sleep apnea, morbid obesity)? @ -[None] Was patient admitted / discharged? Hospital course, mention meds given and route, prescriptions, significant lab abnormalities, going to OR and other pertinent info. @ -Transfer to [facility]. Patient is a 33-year-old male with a history of Crohn's who presents the emergency department with abdominal pain. Patient had a thorough history and physical exam performed. Vital signs are stable. Patient afebrile. Abdomen is distended with generalized abdominal tenderness. Patient is medically studies WBC 36.1, HGB 16.7, sodium 141, potassium 4.1 carbon dioxide is 21 anion gap 18 BUN 8, creatinine 0.69 lactic acid 2.8 Covid influenza and RSV are negative. I interpreted the following: CT of the abdomen reveals bowel obstruction with transition point in the paramedian midbowel secondary to inflammatory stricture. Patient provided with 2 L of IV fluids, morphine and Dilaudid with mild symptomatic improvement. Patient started on maintenance fluids. Case was discussed with Dr. Cardenas, ED attending at [facility] who agrees to accept the patient for ER to ER transfer. Patient will be [facility]. Case is discussed with Dr. Marino, ED attending who agrees with plan of care Undiagnosed new problem with uncertain prognosis? @ -[No] Drug Therapy requiring intensive monitoring for toxicity (Heparin, Nitro, Insulin, Cardizem)? @ -[No] Were any procedures done? @ -[No] Diagnosis/symptom? @ -Small Bowel Obstruction -Abdominal Pain - Nausea and Vomiting - Hx of Crohns Acute, or Chronic, or Acute on Chronic? @ -Acute on Chronic Uncomplicated (without systemic symptoms) or Complicated (systemic symptoms)? @ -Complicated Side effects of treatment? @ -[No] Exacerbation, Progression, or Severe Exacerbation? @ -[No] Poses a threat to life or bodily function? How? (Chest pain, USA, PR, pneumonia, PE, COPD, DKA, ARF, appy, cholecystitis, CVA, Diverticulitis, Homicidal, Suicidal, threat to staff... and all critical care pts) @ -yes, SBO - Lab Data Result diagrams: 09/14/23 06:34 09/14/23 06:34 Lab Results 09/14/23 09/14/23 09/14/23 Range/Units 06:34 06:34 06:34 WBC 36.1 H (3.8-10.6) k/uL RBC 5.51 (4.30-5.90) m/uL Hgb 16.7 (13.0-17.5) gm/dL Hct 46.4 (39.0-53.0) % MCV 84.2 (80.0-100.0) fL MCH 30.2 (25.0-35.0) pg MCHC 35.9 (31.0-37.0) g/dL RDW 13.5 (11.5-15.5) % Plt Count 721 H (150-450) k/uL MPV 9.0 Neutrophils % 89 % Lymphocytes % 3 % Monocytes % 6 % Eosinophils % 0 % Basophils % 1 % Neutrophils # 32.3 H (1.3-7.7) k/uL Lymphocytes # 1.2 (1.0-4.8) k/uL Monocytes # 2.1 H (0-1.0) k/uL Eosinophils # 0.1 (0-0.7) k/uL Basophils # 0.2 (0-0.2) k/uL Manual Slide Review Performed Hyperchromasia Slight Poikilocytosis Slight Sodium 141 (137-145) mmol/L Potassium 4.1 (3.5-5.1) mmol/L Chloride 102 (98-107) mmol/L Carbon Dioxide 21 L (22-30) mmol/L Anion Gap 18 mmol/L BUN 8 L (9-20) mg/dL Creatinine 0.69 (0.66-1.25) mg/dL Est GFR (CKD-EPI)AfAm >90 (>60 ml/min/1.73 sqM) Est GFR (CKD-EPI)NonAf >90 (>60 ml/min/1.73 sqM) Glucose 115 H (74-99) mg/dL Lactic Ac Sepsis Rflx Plasma Lactic Acid Johny 3.8 H* (0.7-2.0) mmol/L Calcium 10.1 (8.4-10.2) mg/dL Total Bilirubin 1.0 (0.2-1.3) mg/dL AST 34 (17-59) U/L ALT 29 (4-49) U/L Alkaline Phosphatase 87 (38-126) U/L Total Protein 6.9 (6.3-8.2) g/dL Albumin 4.5 (3.5-5.0) g/dL Influenza Type A (PCR) (Not Detectd) Influenza Type B (PCR) (Not Detectd) RSV (PCR) (Not Detectd) SARS-CoV-2 (PCR) (Not Detectd) 09/14/23 09/14/23 Range/Units 06:34 07:33 WBC (3.8-10.6) k/uL RBC (4.30-5.90) m/uL Hgb (13.0-17.5) gm/dL Hct (39.0-53.0) % MCV (80.0-100.0) fL MCH (25.0-35.0) pg MCHC (31.0-37.0) g/dL RDW (11.5-15.5) % Plt Count (150-450) k/uL MPV Neutrophils % % Lymphocytes % % Monocytes % % Eosinophils % % Basophils % % Neutrophils # (1.3-7.7) k/uL Lymphocytes # (1.0-4.8) k/uL Monocytes # (0-1.0) k/uL Eosinophils # (0-0.7) k/uL Basophils # (0-0.2) k/uL Manual Slide Review Hyperchromasia Poikilocytosis Sodium (137-145) mmol/L Potassium (3.5-5.1) mmol/L Chloride (98-107) mmol/L Carbon Dioxide (22-30) mmol/L Anion Gap mmol/L BUN (9-20) mg/dL Creatinine (0.66-1.25) mg/dL Est GFR (CKD-EPI)AfAm (>60 ml/min/1.73 sqM) Est GFR (CKD-EPI)NonAf (>60 ml/min/1.73 sqM) Glucose (74-99) mg/dL Lactic Ac Sepsis Rflx Y Plasma Lactic Acid Johny (0.7-2.0) mmol/L Calcium (8.4-10.2) mg/dL Total Bilirubin (0.2-1.3) mg/dL AST (17-59) U/L ALT (4-49) U/L Alkaline Phosphatase (38-126) U/L Total Protein (6.3-8.2) g/dL Albumin (3.5-5.0) g/dL Influenza Type A (PCR) Not Detected (Not Detectd) Influenza Type B (PCR) Not Detected (Not Detectd) RSV (PCR) Not Detected (Not Detectd) SARS-CoV-2 (PCR) Not Detected (Not Detectd) Disposition Clinical Impression: Crohn's disease, Small bowel obstruction, Leukocytosis Disposition: OTHER INSTITUTION NOT DEFINED Condition: Fair Is patient prescribed a controlled substance at d/c from ED?: No Referrals: None,Stated [Primary Care Provider] - 1-2 days Time of Disposition: 10:08 - Out of Hospital Transfer - Req. Specs Out of Hospital Transfer - Requested Specifics: Other Emergency Center ([facility])
[2023-09-14 07:18] LABS: Basophils # (A) 0.2 k/uL (0-0.2); Basophils % (A) 1 %; Eosinophils # (A) 0.1 k/uL (0-0.7); Eosinophils % (A) 0 %; HCT 46.4 % (39.0-53.0); HGB 16.7 gm/dL (13.0-17.5); Hyperchromasia Slight; Lymphocytes # (A) 1.2 k/uL (1.0-4.8); Lymphocytes % (A) 3 %; MCH 30.2 pg (25.0-35.0); MCHC 35.9 g/dL (31.0-37.0); MCV 84.2 fL (80.0-100.0); Monocytes # (A) 2.1 k/uL (0-1.0); Monocytes % (A) 6 %; Neutrophils # (A) 32.3 k/uL (1.3-7.7); Neutrophils % (A) 89 %; Platelet Count 721 k/uL (150-450); Poikilocytosis Slight; RBC 5.51 m/uL (4.30-5.90); RDW 13.5 % (11.5-15.5); WBC 36.1 k/uL (3.8-10.6)
[2023-09-14 07:25] LABS: AST 34 U/L (17-59); African American GFR (CKD) >90 (>60 ml/min/1.73 sqM); Albumin 4.5 g/dL (3.5-5.0); Anion Gap 18 mmol/L; Blood Urea Nitrogen 8 mg/dL (9-20); Calcium 10.1 mg/dL (8.4-10.2); Carbon Dioxide 21 mmol/L (22-30); Chloride 102 mmol/L (98-107); Glucose 115 mg/dL (74-99); Non-African American GFR(CKD) >90 (>60 ml/min/1.73 sqM); Sodium 141 mmol/L (137-145); Total Protein 6.9 g/dL (6.3-8.2)
[2023-09-14 07:30] LABS: ALT 29 U/L (4-49); Alkaline Phosphatase 87 U/L (38-126); Potassium 4.1 mmol/L (3.5-5.1)
[2023-09-14] MEDS ORDERED: MORPHINE SULFATE 4 MG/ML SYRINGE IVP STA ×2 (07:39→09:53)
--- NOTE | 2023-09-14 08:04 | CT ---
EXAMINATION TYPE: CT abdomen pelvis w con DATE OF EXAM: 09/14/2023 COMPARISON: 08/11/2023 HISTORY: 33-year-old male Crohn's flareup, nausea, lower ABD PAIN. History of previous splenectomy TECHNIQUE: Contiguous axial scanning of the abdomen and pelvis following administration of 72 ml Isov ue 300 IV contrast. Delayed images through the kidneys and coronal/sagittal reconstructions performe d. CT DLP: 636.5 mGycm Automated exposure control for dose reduction was used. FINDINGS: LUNG BASES: No significant abnormality is appreciated. LIVER/GB: No significant abnormality is appreciated. PANCREAS: No significant abnormality is seen. SPLEEN: Surgically absent. ADRENALS: No significant abnormality is seen. KIDNEYS: No significant abnormality is seen. BOWEL: Dilated small bowel loops are fluid-filled measuring up to 4.6 cm. There is associated mesente christina edema. Central abdominal mesenteric adenopathy. Nodes measure up to 1.6 cm. Transition point within the left paramedian mid abdomen, axial image 61 and coronal image 37. The sma ll bowel wall there is variable mild to moderate wall thickening here along with adjacent segments of more proximal and distal small bowel to the level of the terminal ileum. Incidental small bowel diverticulum measuring 2.9 cm, also distended with fluid. OTHER: Mild pelvic free fluid. No free air. PELVIS: Bladder not distended. Prostate gland normal size 3.8 cm. Mild pelvic free fluid. No pelvic a denopathy seen. Moderate sized right-sided scrotal hydrocele is noted, decreased from 08/11/2023. BONES: No significant abnormality is identified. IMPRESSION: 1. A MODERATE RECURRENT ENTERITIS INVOLVING THE MID TO DISTAL SMALL BOWEL WITH CONCURRENT HIGH-GRADE SMALL BOWEL OBSTRUCTION; TRANSITION POINT IN THE LEFT PARAMEDIAN MID ABDOMEN WITH OBSTRUCTION SECONDA RY TO AN INFLAMMATORY STRICTURE. 2. REACTIVE MESENTERIC EDEMA, MILD PELVIC FREE FLUID, AND MESENTERIC ADENOPATHY MEASURING UP TO 1.6 C M. 3. A RIGHT-SIDED DIRECT INGUINAL HERNIA CONTAINING MODERATE ASCITES FLUID, DECREASED FROM 08/11/2023.
[2023-09-14] MEDS ORDERED: SODIUM CHLORIDE 0.9% 1,000 ML IV SCH (08:45)
[2023-09-14] MEDS ORDERED: HYDROmorphone 0.5 MG/0.5 ML SYRINGE IVP STA (09:54)
[2023-09-14 10:19] VITALS: BP 144/88; PULSE 73; RESP 17
[2023-09-14 10:20] VITALS: TEMP 98.8
== END 2023-09-14 11:15 | disposition other institution (70) ==
LOC: EC 05:49
DX: K50.012 Crohn's disease of small intestine with intestinal obstruction (principal); D72.829 Elevated white blood cell count, unspecified; Z20.822 Contact with and (suspected) exposure to COVID-19
CPT/HCPCS: 99285; 96374; 96375 ×2; 96361 ×4; 36415; 80053; 83605; 85025; 87636; 74177; J2270; J2405; J1885; J1170; Q9967

== ENCOUNTER → 2023-09-24 | Outpatient (CLI) | payer BC ==
[2023-09-24 15:14] LABS: ALT 31 U/L (10-49); AST 10 U/L (14-35); Albumin/Globulin Ratio 2.22 Ratio (1.60-3.17); Alkaline Phosphatase 64 U/L (41-126); Blood Urea Nitrogen 6.4 mg/dL (9.0-27.0); Calcium 9.8 mg/dL (8.7-10.3); Carbon Dioxide 26.9 mmol/L (21.6-31.8); Chloride 104 mmol/L (96-109); Globulin 1.8 g/dL (1.6-3.3); Glucose 74 mg/dL (70-110); Potassium 4.1 mmol/L (3.5-5.5); Sodium 142 mmol/L (135-145); Total Bilirubin 0.8 mg/dL (0.3-1.2); Total Protein 5.8 g/dL (6.2-8.2)
[2023-09-24 17:10] LABS: HCT 44.5 % (39.6-50.0); HGB 15.1 g/dL (13.0-17.0); MCH 29.7 pg (27.0-32.0); MCHC 33.9 g/dL (32.0-37.0); MCV 87.6 FL (80.0-97.0); Mean Platelet Volume 10.4 FL (9.5-12.2); NRBC Per 100 WBC 0 X 10*3/uL (0.00-0.01); Platelet Count 800 X 10*3/uL (140-440); RBC 5.08 X 10*6/uL (4.40-5.60); RDW 13.2 % (11.5-14.5); WBC 20.09 X 10*3/uL (4.50-10.00)
[2023-09-24 17:11] LABS: Basophils # (A) 0.07 X 10*3/uL (0.00-0.10); Basophils % (A) 0.3 %; Crenated RBC 2+; Eosinophils # (A) 0.12 X 10*3/uL (0.04-0.35); Eosinophils % (A) 0.6 %; Lymphocytes # (A) 2.12 X 10*3/uL (0.90-5.00); Lymphocytes % (A) 10.6 %; Monocytes # (A) 2.39 X 10*3/uL (0.20-1.00); Monocytes % (A) 11.9 %; Neutrophils # (A) 15.25 X 10*3/uL (1.80-7.70); Neutrophils % (A) 75.9 %
== END | disposition home or self-care (01) ==
LOC: LABWHC1 08:21
PROVIDERS: ATTEND Internal Medicine Gastroenterology
DX: K50.90 Crohn's disease, unspecified, without complications (principal)
CPT/HCPCS: 36415; 80053; 85025

== ENCOUNTER 2023-10-14 09:43 | Emergency (ER) | payer BC ==
[2023-10-14] MEDS ORDERED: SODIUM CHLORIDE 0.9% 1,000 ML IV STA (10:11)
[2023-10-14] MEDS ORDERED: ONDANSETRON 4 MG/2 ML VIAL IVP STA (10:11)
[2023-10-14] MEDS ORDERED: methylPREDNISolone SOD SUCCI 125 MG/2 ML VIAL IV STA (10:14)
[2023-10-14] MEDS ORDERED: MORPHINE SULFATE 4 MG/ML SYRINGE IVP STA (10:14)
[2023-10-14 10:21] VITALS: RESP 18
[2023-10-14] MEDS ORDERED: FAMOTIDINE 20 MG/2 ML VIAL IV STA (10:29)
--- NOTE | 2023-10-14 10:33 | ED ---
Abdominal Pain HPI - General Chief Complaint: Abdominal Pain Stated Complaint: Abd pain Time Seen by Provider: 10/14/23 09:54 Source: patient, RN notes reviewed Mode of arrival: ambulatory Limitations: no limitations - History of Present Illness Initial Comments: This is a 33-year-old male who presents to the emergency department for abdominal pain, nausea, and vomiting. Patient has a history of Crohn's disease. He was evaluated here a month ago for abdominal pain related to a Crohn's flare. He ended up having to be transferred to [facility] due to lack of GI coverage for high-grade small bowel obstruction. They managed him medically with steroids and he was discharged home. Patient notes that his current pain is not as severe as it was then. He has continued to be on steroids since. Currently taking 10 mg. This morning he had several episodes of nausea and vomiting, and was unable to keep down the steroids or Tylenol for pain. He does follow with Dr. Pathak GI. States that they're planning an MRI in November to further evaluate his bowels. MD Complaint: abdominal pain - Related Data Previous Rx's Medication Instructions Recorded HYDROcodone/APAP 5-325MG [[place] 1 tab PO Q6HR PRN 3 Days #12 tab 10/14/23 5-325] Ondansetron Odt [Zofran Odt] 4 mg PO Q8HR PRN #20 tab 10/14/23 Allergies Allergy/AdvReac Type Severity Reaction Status Date / Time No Known Allergies Allergy Verified 09/14/23 09:33 Review of Systems ROS Statement: Those systems with pertinent positive or pertinent negative responses have been documented in the HPI. ROS Other: All systems not noted in ROS Statement are negative. Past Medical History Additional Past Medical History / Comment(s): Crohn's disease History of Any Multi-Drug Resistant Organisms: None Reported Additional Past Surgical History / Comment(s): spleen removed at 8 years old Past Anesthesia/Blood Transfusion Reactions: No Reported Reaction Past Psychological History: No Psychological Hx Reported Smoking Status: Never smoker Past Alcohol Use History: None Reported Past Drug Use History: None Reported - Past Family History Mother Additional Family Medical History / Comment(s): IBS Father Family Medical History: Cancer, Coronary Artery Disease (CAD) Additional Family Medical History / Comment(s): Father had prostate cancer, CABG, hereditary speen disease. family Family Medical History: No Reported History General Exam Limitations: no limitations General appearance: alert, in no apparent distress Head exam: Present: atraumatic, normocephalic, normal inspection Respiratory exam: Present: normal lung sounds bilaterally. Absent: respiratory distress, wheezes, rales, rhonchi, stridor Cardiovascular Exam: Present: regular rate, normal rhythm, normal heart sounds. Absent: systolic murmur, diastolic murmur, rubs, gallop, clicks GI/Abdominal exam: Present: soft, tenderness (lower abdomen), normal bowel sounds. Absent: distended Neurological exam: Present: alert, oriented X3, CN II-XII intact Psychiatric exam: Present: normal affect, normal mood Skin exam: Present: warm, dry, intact, normal color. Absent: rash Course Vital Signs 10/14/23 09:45 Temperature 98.4 F Pulse Rate 97 Respiratory 18 Rate Blood Pressure 130/83 O2 Sat by Pulse 98 Oximetry Medical Decision Making - Medical Decision Making There is a 33 year old male who presents to the emergency department for abdominal pain. Was pt. sent in by a medical professional or institution? @ -No Did you speak to anyone other than the patient for history? @ -No Did you review nursing and triage notes? @ -Yes, and I agree, it is accurate with regards to the patient's symptoms. Were old charts reviewed? @ -CT scan of the abdomen and pelvis from 09/14/23 demonstrating moderate recurrent enteritis involving the mid to distal small bowel with concurrent hig h-grade small bowel obstruction. Differential Diagnosis? @ -Differential Abdominal Pain Men: Appendicitis, cholecystitis, diverticulosis, ischemic bowel, pancreatitis, hepatitis, UTI, gastroenteritis, AAA, incarcerated hernia, bowel obstruction, constipation, inflammatory bowel, hepatitis, peptic ulcer disease, splenic infarction, perforated viscus, testicular torsion, this is not meant to be an all-inclusive list EKG interpreted by me (3pts min.)? @ -Not obtained X-rays interpreted by me (1pt min.)? @ -Not obtained CT interpreted by me (1pt min.)? @ -Not obtained U/S interpreted by me (1pt. min.)? @ -Not obtained What testing was considered but not performed? (CT, X-rays, U/S, labs)? Why? @ -CT scan of the abdomen/pelvis, however patient declined due to concern of excessive radiation exposure due to multiple CT scans in the past. What meds were considered but not given? Why? @ -None Did you discuss the management of the patient with other professionals? @ -No Did you reconcile home meds? @ -No Was smoking cessation discussed for >3mins.? @ -No Was critical care preformed (if so, how long)? @ -No Were there social determinants of health that impacted care today? How? (Homelessness, low income, unemployed, alcoholism, drug addiction, transport ation, low edu. Level, literacy, decrease access to med. care, half-way, rehab)? @ -No Was there de-escalation of care discussed even if they declined? (Discuss DNR or withdrawal of care, Hospice)? @ -No What co-morbidities impacted this encounter? (DM, HTN, Smoking, COPD, CAD, Cancer, CVA, Hep., AIDS, mental health diagnosis, sleep apnea, morbid obesity)? @ -Crohn's disease Was patient admitted / discharged? @ -Discharged. Lab work obtained revealing leukocytosis and an elevated lactic acid of 2.1. Patient frequently has leukocytosis, which is likely also related to his vomiting and prolonged steroid use. I discussed with the patient obtaining additional imaging of his abdomen as we cannot rule out infection or other acute process and he had a high-grade small bowel obstruction a month ago. Patient however wishes to avoid imaging at this time due to multiple CT scans and concern for radiation exposure. He was treated with IV fluids, morphine, Solu-Medrol and Zofran with improvement in symptoms. He was tolerating oral intake afterwards and felt stable for discharge home. Patient states that with his nausea controlled, he is comfortable with managing his symptoms at home. Strict return parameters discussed. Rx for Zofran provided with dosing inst ructions reviewed. Patient advised to slowly advance his diet as tolerated and remain well hydrated. Patient discharged home in stable condition and will follow up with GI. Undiagnosed new problem with uncertain prognosis? @ -None Drug Therapy requiring intensive monitoring for toxicity (Heparin, Nitro, Insulin, Cardizem)? @ -None Were any procedures done? @ -None Diagnosis/symptom? @ -Abdominal pain, nausea/vomiting Acute, or Chronic, or Acute on Chronic? @ -Acute Uncomplicated (without systemic symptoms) or Complicated (systemic symptoms)? @ -Uncomplicated Side effects of treatment? @ -None Exacerbation, Progression, or Severe Exacerbation] @ -Not applicable Poses a threat to life or bodily function? @ -No Return precautions reviewed in depth, the patient is instructed to return to the emergency department with any new, worsening, or concerning symptoms. Patient verbalized understanding. This case was discussed in detail with the attending ED physician, Dr. Olmedo. Presentation, findings, and treatment plan discussed in detail as well. - Lab Data Result diagrams: 10/14/23 10:38 10/14/23 10:38 Lab Results 10/14/23 10/14/23 10/14/23 Range/Units 10:38 10:38 10:38 WBC 26.5 H (3.8-10.6) k/uL RBC 5.10 (4.30-5.90) m/uL Hgb 15.6 (13.0-17.5) gm/dL Hct 43.3 (39.0-53.0) % MCV 84.9 (80.0-100.0) fL MCH 30.5 (25.0-35.0) pg MCHC 36.0 (31.0-37.0) g/dL RDW 13.3 (11.5-15.5) % Plt Count 681 H (150-450) k/uL MPV 8.5 Neutrophils % 92 % Lymphocytes % 2 % Monocytes % 5 % Eosinophils % 1 % Basophils % 0 % Neutrophils # 24.3 H (1.3-7.7) k/uL Lymphocytes # 0.5 L (1.0-4.8) k/uL Monocytes # 1.4 H (0-1.0) k/uL Eosinophils # 0.1 (0-0.7) k/uL Basophils # 0.1 (0-0.2) k/uL Sodium 139 (137-145) mmol/L Potassium 4.2 (3.5-5.1) mmol/L Chloride 107 (98-107) mmol/L Carbon Dioxide 23 (22-30) mmol/L Anion Gap 9 mmol/L BUN 10 (9-20) mg/dL Creatinine 0.67 (0.66-1.25) mg/dL Est GFR (CKD-EPI)AfAm >90 (>60 ml/min/1.73 sqM) Est GFR (CKD-EPI)NonAf >90 (>60 ml/min/1.73 sqM) Glucose 101 H (74-99) mg/dL Plasma Lactic Acid Johny 2.1 H* (0.7-2.0) mmol/L Calcium 10.0 (8.4-10.2) mg/dL Total Bilirubin 1.1 (0.2-1.3) mg/dL AST 23 (17-59) U/L ALT 27 (4-49) U/L Alkaline Phosphatase 71 (38-126) U/L Total Protein 6.3 (6.3-8.2) g/dL Albumin 4.1 (3.5-5.0) g/dL Urine Color Urine Appearance (Clear) Urine pH (5.0-8.0) Ur Specific [place] (1.001-1.035) Urine Protein (Negative) Urine Glucose (UA) (Negative) Urine Ketones (Negative) Urine Blood (Negative) Urine Nitrite (Negative) Urine Bilirubin (Negative) Urine Urobilinogen (<2.0) mg/dL Ur Leukocyte Esterase (Negative) 10/14/23 Range/Units 12:20 WBC (3.8-10.6) k/uL RBC (4.30-5.90) m/uL Hgb (13.0-17.5) gm/dL Hct (39.0-53.0) % MCV (80.0-100.0) fL MCH (25.0-35.0) pg MCHC (31.0-37.0) g/dL RDW (11.5-15.5) % Plt Count (150-450) k/uL MPV Neutrophils % % Lymphocytes % % Monocytes % % Eosinophils % % Basophils % % Neutrophils # (1.3-7.7) k/uL Lymphocytes # (1.0-4.8) k/uL Monocytes # (0-1.0) k/uL Eosinophils # (0-0.7) k/uL Basophils # (0-0.2) k/uL Sodium (137-145) mmol/L Potassium (3.5-5.1) mmol/L Chloride (98-107) mmol/L Carbon Dioxide (22-30) mmol/L Anion Gap mmol/L BUN (9-20) mg/dL Creatinine (0.66-1.25) mg/dL Est GFR (CKD-EPI)AfAm (>60 ml/min/1.73 sqM) Est GFR (CKD-EPI)NonAf (>60 ml/min/1.73 sqM) Glucose (74-99) mg/dL Plasma Lactic Acid Johny (0.7-2.0) mmol/L Calcium (8.4-10.2) mg/dL Total Bilirubin (0.2-1.3) mg/dL AST (17-59) U/L ALT (4-49) U/L Alkaline Phosphatase (38-126) U/L Total Protein (6.3-8.2) g/dL Albumin (3.5-5.0) g/dL Urine Color Yellow Urine Appearance Clear (Clear) Urine pH 6.0 (5.0-8.0) Ur Specific [place] 1.031 (1.001-1.035) Urine Protein Trace H (Negative) Urine Glucose (UA) Negative (Negative) Urine Ketones 1+ H (Negative) Urine Blood Negative (Negative) Urine Nitrite Negative (Negative) Urine Bilirubin Negative (Negative) Urine Urobilinogen <2.0 (<2.0) mg/dL Ur Leukocyte Esterase Negative (Negative) Disposition Clinical Impression: Crohn's colitis, Nausea and vomiting Disposition: HOME SELF-CARE Instructions (If sedation given, give patient instructions): Crohn Disease (ED), Acute Nausea and Vomiting (ED) Additional Instructions: Return to the emergency department with any new, worsening, or concerning symptoms. You can take the Zofran up to every 8 hours as needed for nausea and vomiting. Continue to take Tylenol as needed for pain relief and take the [place] sparingly when your pain is the most severe and be aware that it may make you drowsy. Slowly advance your diet as tolerated and remain well-hydrated. Follow up with Dr. Pathak. Prescriptions: HYDROcodone/APAP 5-325MG [[place] 5-325] 1 tab PO Q6HR PRN 3 Days #12 tab PRN Reason: Pain Ondansetron Odt [Zofran Odt] 4 mg PO Q8HR PRN #20 tab PRN Reason: Nausea And Vomiting Is patient prescribed a controlled substance at d/c from ED?: Yes When asked, does pt state using other controlled substances?: No If prescribed controlled substance>3 days was MAPS reviewed?: Prescribed <3 Days Referrals: None,Stated [Primary Care Provider] - 1-2 days Dariana Pathak MD [STAFF PHYSICIAN] - 1-2 days Time of Disposition: 12:55
[2023-10-14 11:16] LABS: ALT 27 U/L (4-49); AST 23 U/L (17-59); African American GFR (CKD) >90 (>60 ml/min/1.73 sqM); Albumin 4.1 g/dL (3.5-5.0); Alkaline Phosphatase 71 U/L (38-126); Anion Gap 9 mmol/L; Blood Urea Nitrogen 10 mg/dL (9-20); Carbon Dioxide 23 mmol/L (22-30); Chloride 107 mmol/L (98-107); Glucose 101 mg/dL (74-99); Non-African American GFR(CKD) >90 (>60 ml/min/1.73 sqM); Potassium 4.2 mmol/L (3.5-5.1); Sodium 139 mmol/L (137-145); Total Bilirubin 1.1 mg/dL (0.2-1.3); Total Protein 6.3 g/dL (6.3-8.2)
[2023-10-14 11:22] LABS: Basophils # (A) 0.1 k/uL (0-0.2); Basophils % (A) 0 %; Eosinophils # (A) 0.1 k/uL (0-0.7); Eosinophils % (A) 1 %; HCT 43.3 % (39.0-53.0); HGB 15.6 gm/dL (13.0-17.5); Lymphocytes # (A) 0.5 k/uL (1.0-4.8); Lymphocytes % (A) 2 %; MCH 30.5 pg (25.0-35.0); MCV 84.9 fL (80.0-100.0); Mean Platelet Volume 8.5; Monocytes # (A) 1.4 k/uL (0-1.0); Monocytes % (A) 5 %; Neutrophils # (A) 24.3 k/uL (1.3-7.7); Neutrophils % (A) 92 %; Platelet Count 681 k/uL (150-450); RDW 13.3 % (11.5-15.5); WBC 26.5 k/uL (3.8-10.6)
[2023-10-14 12:26] LABS: Appearance,Urine Clear (Clear); Bilirubin,Urine Negative (Negative); Blood,Urine Negative (Negative); Color,Urine Yellow; Glucose,Urine (UA) Negative (Negative); Ketones,Urine 1+ (Negative); Leukocyte Esterase,Urine Negative (Negative); Nitrite,Urine Negative (Negative); Protein,Urine Trace (Negative); Specific Gravity,Urine 1.031 (1.001-1.035); Urobilinogen,Urine <2.0 mg/dL (<2.0)
[2023-10-14] MEDS ORDERED: ACET/COD 300 MG/30 MG STARTER PACK 6 TAB BTL PO STA (12:50)
[2023-10-14] MEDS ORDERED: ONDANSETRON 4 MG ODT STARTER PACK 2 TAB BTL PO STA (12:50)
[2023-10-14 13:25] VITALS: BP 122/73; PULSE 77; TEMP 97.8
== END 2023-10-14 13:15 | disposition home or self-care (01) ==
LOC: EC 09:43
DX: K50.90 Crohn's disease, unspecified, without complications (principal)
CPT/HCPCS: 36415; 80053; 83605; 85025; 81003; 99284; 96374; 96375 ×3; 96361; J2270; J2930; J2405; J3490; S0119

== ENCOUNTER → 2023-10-22 | Day surgery (SDC) | payer BC ==
[2023-10-22 09:19] VITALS: BP 123/79; PULSE 87; RESP 18; TEMP 97.7
[2023-10-22] MEDS: GLUCAGON 1 MG/ML VIAL IM STA (09:32)
--- NOTE | 2023-10-23 09:27 | MR ---
EXAMINATION TYPE: MR Enterography DATE OF EXAM: 10/22/2023 10:25 AM COMPARISON: CT 09/14/2023. CLINICAL INDICATION: Male 33 years old with a history of K50.90 CROHN'S DISEASE, UNSPECIFIED, WITHOUT COMPL. Crohn's disease. TECHNIQUE: Standard multiplanar, multisequence imaging of the abdomen is performed without and with I V contrast, patient is injected with 1125 mL intravenous Gadavist gadolinium contrast. Oral NeuLumEX was given as per enterography protocol. FINDINGS: LOWER CHEST: No significant findings. ABDOMEN Bowel: There are distended small bowel loops of bowel most pronounced in the lower abdomen with heter ogenous internal content upstream to an sharp bend in the bowel series 601 image 40 series 1001 image 162. This correlates with prior CT. Some degree of obstruction is suspected given nondistention of b owel downstream and upstream bowel dilated up to 41 mm. Bowel wall thickening is more apparent on CT imaging 09/14/2023. Likely due to slice selection. There is an enhancing nodule within the lumen of t he bowel measuring 10 mm as seen on prior CT series 1001 image 175. No evidence for organizing fluid collection suggest abscess. No fistulous tract definitively visuali zed. Neoterminal ileum is nondistended without some mucosal hyperenhancement. Peritoneum: No evidence of pneumoperitoneum, free fluid, or adenopathy. Liver: Unremarkable. Gallbladder and Bile ducts: Unremarkable. Pancreas: Unremarkable. Spleen: Unremarkable. Adrenal glands: Unremarkable. Kidneys: Unremarkable. Bladder: Unremarkable. Reproductive: Unremarkable. Lymph Nodes: Vasculature: Unremarkable. No aortic aneurysm. Musculoskeletal: The osseous structures appear intact. Abdominal wall: Unremarkable. IMPRESSION: Suspected partial obstruction in the left lower abdomen with upstream dilation of small bowel with sm all bowel feces. There is some mild bowel wall thickening in this region. This correlates with CT fin ding from 09/14/2023. Enhancing nodules also present unknown significance. Overall findings similar t o prior CT.
== END ==
LOC: RADMRIMAIN 07:56
PROVIDERS: ATTEND Internal Medicine Gastroenterology
DX: K50.90 Crohn's disease, unspecified, without complications (principal); Z91.011 Allergy to milk products; Z90.81 Acquired absence of spleen; Z98.890 Other specified postprocedural states
CPT/HCPCS: 96372; 72197; 74183; J1610; A9585

== ENCOUNTER 2023-11-11 02:53 | Inpatient (IN) | payer BC ==
--- NOTE | 2023-11-11 03:27 | ED ---
General Adult HPI - General Chief complaint: Abdominal Pain Stated complaint: Crohns flare up Time Seen by Provider: 11/11/23 03:00 Source: patient, RN notes reviewed, old records reviewed Mode of arrival: ambulatory Limitations: no limitations - History of Present Illness Initial comments: 33-year-old male history of Crohn's disease presenting with generalized abdominal pain and multiple episodes of vomiting. Patient states that this is similar to previous episodes of his Crohn's disease flareups. No fever. He states he had a normal bowel movement today. - Related Data Previous Rx's Medication Instructions Recorded HYDROcodone/APAP 5-325MG [[place] 1 tab PO Q6HR PRN 3 Days #12 tab 10/14/23 5-325] Ondansetron Odt [Zofran Odt] 4 mg PO Q8HR PRN #20 tab 10/14/23 Allergies Allergy/AdvReac Type Severity Reaction Status Date / Time No Known Allergies Allergy Verified 11/11/23 02:58 Review of Systems ROS Statement: Those systems with pertinent positive or pertinent negative responses have been documented in the HPI. ROS Other: All systems not noted in ROS Statement are negative. Past Medical History Additional Past Medical History / Comment(s): Crohn's disease History of Any Multi-Drug Resistant Organisms: None Reported Additional Past Surgical History / Comment(s): spleen removed at 8 years old Past Anesthesia/Blood Transfusion Reactions: No Reported Reaction Past Psychological History: No Psychological Hx Reported Smoking Status: Never smoker Past Alcohol Use History: None Reported Past Drug Use History: None Reported - Past Family History Mother Additional Family Medical History / Comment(s): IBS Father Family Medical History: Cancer, Coronary Artery Disease (CAD) Additional Family Medical History / Comment(s): Father had prostate cancer, CAB G, hereditary speen disease. family Family Medical History: No Reported History General Exam Limitations: no limitations General appearance: alert, in distress Head exam: Present: atraumatic, normocephalic Eye exam: Present: normal appearance, PERRL ENT exam: Present: mucous membranes dry Neck exam: Present: normal inspection. Absent: tenderness Respiratory exam: Present: normal lung sounds bilaterally. Absent: respiratory distress, wheezes Cardiovascular Exam: Present: normal rhythm, tachycardia GI/Abdominal exam: Present: soft, distended, tenderness, guarding Extremities exam: Present: normal inspection Neurological exam: Present: alert, oriented X3, CN II-XII intact. Absent: motor sensory deficit Psychiatric exam: Present: normal affect, normal mood Skin exam: Present: warm, dry, intact. Absent: cyanosis, diaphoretic Course Vital Signs 11/11/23 11/11/23 11/11/23 02:57 03:28 04:22 Temperature 98.5 F Pulse Rate 111 H 79 81 Respiratory 20 20 22 Rate Blood Pressure 144/107 148/94 148/100 O2 Sat by Pulse 98 99 100 Oximetry 11/11/23 05:00 Temperature Pulse Rate 69 Respiratory 16 Rate Blood Pressure 139/79 O2 Sat by Pulse 99 Oximetry - Reevaluation(s) Reevaluation #1: 11/11/23 0500 I discussed case with Dr. Umm yarbrough for [facility], he declines admission secondary to not currently having gastroenterology. The patient does not agree with transfer. I do feel this patient can be medically treated with IV fluids, antiemetics, pain medication and steroids. I discussed case with [facility] who will accept admission. Medical Decision Making - Medical Decision Making Was pt. sent in by a medical professional or institution (, PA, ROOMING HOUSE INSPECTOR, urgent care, hospital, or retirement...) When possible be specific @ -No Did you speak to anyone other than the patient for history (EMS, parent, family, police, friend...)? What history was obtained from this source @ -No Did you review nursing and triage notes (agree or disagree)? Why? @ -I reviewed and agree with nursing and triage notes Were old charts reviewed (outside hosp., previous admission, EMS record, old EKG, old radiological studies, urgent care reports/EKG's, retirement records)? Report findings @ -No old charts were reviewed Differential Diagnosis (chest pain, altered mental status, abdominal pain women, abdominal pain men, vaginal bleeding, weakness, fever, dyspnea, syncope, headache, dizziness, GI bleed, back pain, seizure, CVA, palpatations, mental health, musculoskeletal)? @ -[Differential Abdominal Pain Men: Appendicitis, cholecystitis, diverticulosis, ischemic bowel, pancreatitis, hepatitis, UTI, gastroenteritis, AAA, incarcerated hernia, bowel obstruction, constipation, inflammatory bowel, hepatitis, peptic ulcer disease, splenic infarction, perforated viscus, testicular torsion, this is not meant to be an all-inclusive list EKG interpreted by me (3pts min.). @ -As above X-rays interpreted by me (1pt min.). @ -None done CT interpreted by me (1pt min.). @ -[CT of the abdomen shows distal small bowel obstruction U/S interpreted by me (1pt. min.). @ -None done What testing was considered but not performed or refused? (CT, X-rays, U/S, labs)? Why? @ -None What meds were considered but not given or refused? Why? @ -None Did you discuss the management of the patient with other professionals (professionals i.e. , PA, ROOMING HOUSE INSPECTOR, lab, RT, psych nurse, sexual assault social worker, technician inventory specialist, teacher, aoc plans intelligence officer chief, briefcase sewer)? Give summary @ -Dr. Montes De Oca Was smoking cessation discussed for >3mins.? @ -No Was critical care preformed (if so, how long)? @ -No Were there social determinants of health that impacted care today? How? (Homelessness, low income, unemployed, alcoholism, drug addiction, transportation, low edu. Level, literacy, decrease access to med. care, fpc, rehab)? @ -No Was there de-escalation of care discussed even if they declined (Discuss DNR or withdrawal of care, Hospice)? DNR status @ -No What co-morbidities impacted this encounter? (DM, HTN, Smoking, COPD, CAD, Cancer, CVA, ARF, Chemo, Hep., AIDS, mental health diagnosis, sleep apnea, morbid obesity)? @ -History of Crohn's Was patient admitted / discharged? Hospital course, mention meds given and route, prescriptions, significant lab abnormalities, going to OR and other pertinent info. @ -33-year-old male history of Crohn's presenting with abdominal pain, distention, vomiting. Patient had similar episode 3 weeks prior and was transferred to [place] at that time secondary to no GI coverage at this institution. The patient was treated medically and was discharged. Symptoms returned and are similar in nature. He has a leukocytosis which does appear to be chronic. Also he has just finished a steroid taper. Lactic acid is 2.4. Patient has stable vitals, improved symptoms with steroids, fluids, antiemetics and pain medication. Undiagnosed new problem with uncertain prognosis? @ -No Drug Therapy requiring intensive monitoring for toxicity (Heparin, Nitro, Insulin, Cardizem)? @ -No Were any procedures done? @ -No Diagnosis/symptom? @Crohn's exacerbation Acute, or Chronic, or Acute on Chronic? @ -Acute on chronic Uncomplicated (without systemic symptoms) or Complicated (systemic symptoms)? @ -Default Side effects of treatment? @ -No Exacerbation, Progression, or Severe Exacerbation? @ -No Poses a threat to life or bodily function? How? (Chest pain, [place], ME, pneumonia, PE, COPD, DKA, ARF, appy, cholecystitis, CVA, Diverticulitis, Homicidal, Suicidal, threat to staff... and all critical care pts) @ -[Moderate risk, bowel obstruction, hypovolemic shock - Lab Data Result diagrams: 11/11/23 03:31 11/11/23 03:31 Lab Results 11/11/23 11/11/23 11/11/23 Range/Units 03:31 03:31 03:31 WBC 21.6 H (3.8-10.6) k/uL RBC 5.08 (4.30-5.90) m/uL Hgb 15.1 (13.0-17.5) gm/dL Hct 42.2 (39.0-53.0) % MCV 83.1 (80.0-100.0) fL MCH 29.7 (25.0-35.0) pg MCHC 35.7 (31.0-37.0) g/dL RDW 13.0 (11.5-15.5) % Plt Count 744 H (150-450) k/uL MPV 8.0 Neutrophils % 77 % Lymphocytes % 9 % Monocytes % 8 % Eosinophils % 3 % Basophils % 1 % Neutrophils # 16.7 H (1.3-7.7) k/uL Lymphocytes # 1.9 (1.0-4.8) k/uL Monocytes # 1.7 H (0-1.0) k/uL Eosinophils # 0.7 (0-0.7) k/uL Basophils # 0.1 (0-0.2) k/uL Hyperchromasia Slight Sodium 141 (137-145) mmol/L Potassium 4.0 (3.5-5.1) mmol/L Chloride 111 H (98-107) mmol/L Carbon Dioxide 18 L (22-30) mmol/L Anion Gap 12 mmol/L BUN 8 L (9-20) mg/dL Creatinine 0.64 L (0.66-1.25) mg/dL Est GFR (CKD-EPI)AfAm >90 (>60 ml/min/1.73 sqM) Est GFR (CKD-EPI)NonAf >90 (>60 ml/min/1.73 sqM) Glucose 107 H (74-99) mg/dL Lactic Ac Sepsis Rflx Plasma Lactic Acid Johny 2.4 H* (0.7-2.0) mmol/L Calcium 9.9 (8.4-10.2) mg/dL Total Bilirubin 0.9 (0.2-1.3) mg/dL AST 26 (17-59) U/L ALT 26 (4-49) U/L Alkaline Phosphatase 78 (38-126) U/L Total Protein 6.4 (6.3-8.2) g/dL Albumin 4.2 (3.5-5.0) g/dL Lipase 76 (23-300) U/L Urine Color Urine Appearance (Clear) Urine pH (5.0-8.0) Ur Specific [place] (1.001-1.035) Urine Protein (Negative) Urine Glucose (UA) (Negative) Urine Ketones (Negative) Urine Blood (Negative) Urine Nitrite (Negative) Urine Bilirubin (Negative) Urine Urobilinogen (<2.0) mg/dL Ur Leukocyte Esterase (Negative) 11/11/23 11/11/23 Range/Units 03:56 06:03 WBC (3.8-10.6) k/uL RBC (4.30-5.90) m/uL Hgb (13.0-17.5) gm/dL Hct (39.0-53.0) % MCV (80.0-100.0) fL MCH (25.0-35.0) pg MCHC (31.0-37.0) g/dL RDW (11.5-15.5) % Plt Count (150-450) k/uL MPV Neutrophils % % Lymphocytes % % Monocytes % % Eosinophils % % Basophils % % Neutrophils # (1.3-7.7) k/uL Lymphocytes # (1.0-4.8) k/uL Monocytes # (0-1.0) k/uL Eosinophils # (0-0.7) k/uL Basophils # (0-0.2) k/uL Hyperchromasia Sodium (137-145) mmol/L Potassium (3.5-5.1) mmol/L Chloride (98-107) mmol/L Carbon Dioxide (22-30) mmol/L Anion Gap mmol/L BUN (9-20) mg/dL Creatinine (0.66-1.25) mg/dL Est GFR (CKD-EPI)AfAm (>60 ml/min/1.73 sqM) Est GFR (CKD-EPI)NonAf (>60 ml/min/1.73 sqM) Glucose (74-99) mg/dL Lactic Ac Sepsis Rflx Y Plasma Lactic Acid Johny (0.7-2.0) mmol/L Calcium (8.4-10.2) mg/dL Total Bilirubin (0.2-1.3) mg/dL AST (17-59) U/L ALT (4-49) U/L Alkaline Phosphatase (38-126) U/L Total Protein (6.3-8.2) g/dL Albumin (3.5-5.0) g/dL Lipase (23-300) U/L Urine Color Light Yellow Urine Appearance Clear (Clear) Urine pH 7.5 (5.0-8.0) Ur Specific [place] >1.050 H (1.001-1.035) Urine Protein Trace H (Negative) Urine Glucose (UA) Negative (Negative) Urine Ketones 1+ H (Negative) Urine Blood Negative (Negative) Urine Nitrite Negative (Negative) Urine Bilirubin Negative (Negative) Urine Urobilinogen <2.0 (<2.0) mg/dL Ur Leukocyte Esterase Negative (Negative) Disposition Clinical Impression: Small bowel obstruction, Crohn's disease, Nausea and vomiting Disposition: ADMITTED IP TO THIS [facility] Condition: Stable Is patient prescribed a controlled substance at d/c from ED?: No Referrals: Nonstaff,Physician [Primary Care Provider] - 1-2 days Time of Disposition: 06:23
[2023-11-11] MEDS: HYDROmorphone 1 MG/ML 1 ML SYRINGE IVP STA ×2 (03:29→04:34)
[2023-11-11] MEDS: ONDANSETRON 4 MG/2 ML VIAL IVP STA (03:29)
[2023-11-11] MEDS: methylPREDNISolone SOD SUCCI 125 MG/2 ML VIAL IV STA (03:29)
[2023-11-11] MEDS: SODIUM CHLORIDE 0.9% 1,000 ML IV STA (03:30)
[2023-11-11 03:41] LABS: Basophils # (A) 0.1 k/uL (0-0.2); Basophils % (A) 1 %; Eosinophils # (A) 0.7 k/uL (0-0.7); Eosinophils % (A) 3 %; HCT 42.2 % (39.0-53.0); HGB 15.1 gm/dL (13.0-17.5); Hyperchromasia Slight; Lymphocytes # (A) 1.9 k/uL (1.0-4.8); Lymphocytes % (A) 9 %; MCH 29.7 pg (25.0-35.0); MCHC 35.7 g/dL (31.0-37.0); MCV 83.1 fL (80.0-100.0); Monocytes # (A) 1.7 k/uL (0-1.0); Monocytes % (A) 8 %; Neutrophils # (A) 16.7 k/uL (1.3-7.7); Neutrophils % (A) 77 %; Platelet Count 744 k/uL (150-450); RBC 5.08 m/uL (4.30-5.90); WBC 21.6 k/uL (3.8-10.6)
[2023-11-11 03:50] LABS: ALT 26 U/L (4-49); AST 26 U/L (17-59); African American GFR (CKD) >90 (>60 ml/min/1.73 sqM); Albumin 4.2 g/dL (3.5-5.0); Alkaline Phosphatase 78 U/L (38-126); Anion Gap 12 mmol/L; Blood Urea Nitrogen 8 mg/dL (9-20); Calcium 9.9 mg/dL (8.4-10.2); Carbon Dioxide 18 mmol/L (22-30); Chloride 111 mmol/L (98-107); Glucose 107 mg/dL (74-99); Lipase 76 U/L (23-300); Non-African American GFR(CKD) >90 (>60 ml/min/1.73 sqM); Sodium 141 mmol/L (137-145); Total Bilirubin 0.9 mg/dL (0.2-1.3); Total Protein 6.4 g/dL (6.3-8.2)
--- NOTE | 2023-11-11 04:14 | CT ---
EXAMINATION TYPE: CT abdomen pelvis w con DATE OF EXAM: 11/11/2023 COMPARISON: Prior CT September 14, 2023 HISTORY: ABDOMINAL PAIN, HX OF CROHNS DISEASE CT DLP: 717.6 mGycm, Automated Exposure Control for Dose Reduction was Utilized. CONTRAST: CT scan of the abdomen and pelvis is performed without oral and with IV Contrast, patient injected wi th 100 mL of Isovue 300. FINDINGS: LUNG BASES: No significant abnormality is appreciated. LIVER/GB: No significant abnormality is seen. PANCREAS: No significant abnormality is seen. 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 ADRENALS: No significant abnormality is seen. KIDNEYS: There is 4 mm nonobstructing calculus in the left kidney coronal image 56 redemonstrated. No hydronephrosis seen bilaterally. BOWEL: Stomach not suspiciously distended. No suspicious dilatation of duodenal sweep. Proximal jejun al loops are not dilated. There is gradual transition to more fluid prominent and then abnormally dil ated small bowel loops throughout the abdomen and pelvis. Small bowel loops dilated up to 4.9 cm hermilo nal image 25. There is abnormal wall thickening is fairly moderate in the distal and terminal ileum e xtending back to the level of the dilated and fluid prominent small bowel loops. Additional loops of small bowel with moderate wall thickening in the left abdomen are present. No abnormal colonic disten tion. No free air. GENITAL ORGANS: No gross abnormality seen. LYMPH NODES: Prominent but subcentimeter lymph nodes throughout the mesentery. Mild fluid throughout the mesentery. OSSEOUS STRUCTURES: No significant abnormality is seen. OTHER: No significant additional abnormality is seen. IMPRESSION: There is multifocal acute enteritis thought present. There is distal small bowel obstruct ion on current study also present.
[2023-11-11 06:14] LABS: Appearance,Urine Clear (Clear); Bilirubin,Urine Negative (Negative); Blood,Urine Negative (Negative); Color,Urine Light Yellow; Glucose,Urine (UA) Negative (Negative); Ketones,Urine 1+ (Negative); Leukocyte Esterase,Urine Negative (Negative); Nitrite,Urine Negative (Negative); PH, Urine 7.5 (5.0-8.0); Protein,Urine Trace (Negative); Urobilinogen,Urine <2.0 mg/dL (<2.0)
[2023-11-11 06:34] LABS: Specific Gravity,Urine >1.050 (1.001-1.035)
[2023-11-11] MEDS ORDERED: HYDROmorphone 0.5 MG/0.5 ML SYRINGE IVP PRN (06:40)
[2023-11-11] MEDS ORDERED: HYDROmorphone 1 MG/ML 1 ML SYRINGE IVP PRN (06:40)
[2023-11-11] MEDS ORDERED: ACETAMINOPHEN TAB 325 MG TAB PO PRN (06:40)
[2023-11-11] MEDS ORDERED: ONDANSETRON 4 MG/2 ML VIAL IVP PRN (06:40)
[2023-11-11] MEDS ORDERED: NALOXONE 0.4 MG/ML 1 ML VIAL IV PRN (06:40)
[2023-11-11] MEDS: SODIUM CHLORIDE 0.9% 1,000 ML IV SCH (07:28)
[2023-11-11] MEDS: methylPREDNISolone SOD SUCCI 125 MG/2 ML VIAL IV SCH (07:28)
[2023-11-11 09:41] VITALS: RESP 18
[2023-11-11] MEDS ORDERED: SODIUM CHLORIDE 0.45% 1,000 ML IV SCH (11:00)
--- NOTE | 2023-11-11 11:25 | P.HPIM ---
History of Present Illness 33-year-old male with a history of Crohn's disease came in with complaints of diarrhea multiple episodes of nausea vomiting. This significantly improved with IV steroids. Patient believes his Crohn's flareup, CT did show multifocal acute enteritis. Patient is feeling much better today we will advance her diet to soft diet if he can tolerate patient will be discharged today. Patient is [place] once in 3 months for Crohn's REVIEW OF SYSTEMS: CONSTITUTIONAL: No fever, no malaise, no fatigue. HEENT: No recent visual problems or hearing problems. Denied any sore throat. CARDIOVASCULAR: No chest pain, orthopnea, PND, no palpitations, no syncope. PULMONARY: No shortness of breath, no cough, no hemoptysis. GASTROINTESTINAL: As mentioned in HPI NEUROLOGICAL: No headaches, no weakness, no numbness. HEMATOLOGICAL: Denies any bleeding or petechiae. GENITOURINARY: Denies any burning micturition, frequency, or urgency. MUSCULOSKELETAL/RHEUMATOLOGICAL: Denies any joint pain, swelling, or any muscle pain. ENDOCRINE: Denies any polyuria or polydipsia. The rest of the 14-point review of systems is negative. PHYSICAL EXAMINATION: GENERAL: The patient is alert and oriented x3, not in any acute distress. Well developed, well nourished. HEENT: Pupils are round and equally reacting to light. EOMI. No scleral icterus. No conjunctival pallor. Normocephalic, atraumatic. No pharyngeal erythema. No thyromegaly. CARDIOVASCULAR: S1 and S2 present. No murmurs, rubs, or gallops. PULMONARY: Chest is clear to auscultation, no wheezing or crackles. ABDOMEN: Soft, nontender, nondistended, normoactive bowel sounds. No palpable organomegaly. MUSCULOSKELETAL: No joint swelling or deformity. EXTREMITIES: No cyanosis, clubbing, or pedal edema. NEUROLOGICAL: Gross neurological examination did not reveal any focal deficits. SKIN: No rashes. Assessment and plan -Crohn's exacerbation: Improved at this time patient will be discharged on 20 mg of steroids if he can tolerate soft diet today -Leukocytosis secondary to Crohn's exacerbation -Hyperchloremia and hyperchloremic metabolic acidosis secondary to IV fluids which will be discontinued patient was started on diet as mentioned above Patient will be discharged today on prednisone 20 mg twice a day along with Pepcid for GI prophylaxis and patient will be given [place] for pain patient was asked to take MiraLAX as needed if he gets constipated Past Medical History Additional Past Medical History / Comment(s): Crohn's disease History of Any Multi-Drug Resistant Organisms: None Reported Additional Past Surgical History / Comment(s): spleen removed at 8 years old Past Anesthesia/Blood Transfusion Reactions: No Reported Reaction Past Psychological History: No Psychological Hx Reported Additional Psychological History / Comment(s): Pt resides alone. He is independent. Smoking Status: Never smoker Past Alcohol Use History: None Reported Past Drug Use History: None Reported - Past Family History Mother Additional Family Medical History / Comment(s): IBS Father Family Medical History: Cancer, Coronary Artery Disease (CAD) Additional Family Medical History / Comment(s): Father had prostate cancer, CABG, hereditary speen disease. family Family Medical History: No Reported History Medications and Allergies Home Medications Medication Instructions Recorded Confirmed Type HYDROcodone/APAP 5-325MG [[place] 1 tab PO Q6HR PRN 3 Days #12 tab 10/14/23 Rx 5-325] Ondansetron Odt [Zofran Odt] 4 mg PO Q8HR PRN #20 tab 10/14/23 Rx Famotidine [Pepcid] 20 mg PO BID #30 tablet 11/11/23 Rx HYDROcodone/APAP 7.5-325MG [[place] 1 tab PO Q6HR PRN 3 Days #20 tab 11/11/23 Rx 7.5-325] predniSONE 20 mg PO DAILY #50 tab 11/11/23 Rx Allergies Allergy/AdvReac Type Severity Reaction Status Date / Time No Known Allergies Allergy Verified 11/11/23 02:58 Physical Exam Vitals: Vital Signs Temp Pulse Pulse Resp BP BP Pulse Ox 11/11/23 09:17 98.7 F 94 18 120/61 97 11/11/23 08:41 98.6 F 89 17 127/85 97 11/11/23 08:00 94 18 11/11/23 07:28 98.5 F 90 18 138/81 98 11/11/23 06:00 79 16 142/85 99 11/11/23 05:00 69 16 139/79 99 11/11/23 04:22 81 22 148/100 100 11/11/23 03:28 79 20 148/94 99 11/11/23 02:57 98.5 F 111 H 20 144/107 98 Intake and Output 11/10/23 11/11/23 11/11/23 22:59 06:59 14:59 Other: Weight 72.575 kg Results CBC & Chem 7: 11/11/23 03:31 11/11/23 03:31 Labs: Abnormal Lab Results - Last 24 Hours (Table) 11/11/23 11/11/23 11/11/23 Range/Units 03:31 03:31 03:31 WBC 21.6 H (3.8-10.6) k/uL Plt Count 744 H (150-450) k/uL Neutrophils # 16.7 H (1.3-7.7) k/uL Monocytes # 1.7 H (0-1.0) k/uL Chloride 111 H (98-107) mmol/L Carbon Dioxide 18 L (22-30) mmol/L BUN 8 L (9-20) mg/dL Creatinine 0.64 L (0.66-1.25) mg/dL Glucose 107 H (74-99) mg/dL Plasma Lactic Acid Johny 2.4 H* (0.7-2.0) mmol/L Ur Specific [place] (1.001-1.035) Urine Protein (Negative) Urine Ketones (Negative) 11/11/23 Range/Units 06:03 WBC (3.8-10.6) k/uL Plt Count (150-450) k/uL Neutrophils # (1.3-7.7) k/uL Monocytes # (0-1.0) k/uL Chloride (98-107) mmol/L Carbon Dioxide (22-30) mmol/L BUN (9-20) mg/dL Creatinine (0.66-1.25) mg/dL Glucose (74-99) mg/dL Plasma Lactic Acid Johny (0.7-2.0) mmol/L Ur Specific [place] >1.050 H (1.001-1.035) Urine Protein Trace H (Negative) Urine Ketones 1+ H (Negative) Thrombosis Risk Factor Assmnt - Choose All That Apply Any of the Below Risk Factors Present?: No
--- NOTE | 2023-11-11 11:26 | P.DS ---
Providers Date of admission: 11/11/23 06:41 Attending physician: Lina Montes De Oca Consults: 11/11/23 06:40 Consult Physician Routine Consulting Provider: Dariana Pathak Consult Reason/Comments: Crohn's exacerbation Do you want consulting provider notified?: Yes Primary care physician: Physician Nonstaff Hospital Course: 33-year-old male with a history of Crohn's disease came in with complaints of diarrhea multiple episodes of nausea vomiting. This significantly improved with IV steroids. Patient believes his Crohn's flareup, CT did show multifocal acute enteritis. Patient is feeling much better today we will advance her diet to soft diet if he can tolerate patient will be discharged today. Patient is [place] once in 3 months for Crohn's PHYSICAL EXAMINATION: GENERAL: The patient is alert and oriented x3, not in any acute distress. Well developed, well nourished. HEENT: Pupils are round and equally reacting to light. EOMI. No scleral icterus. No conjunctival pallor. Normocephalic, atraumatic. No pharyngeal erythema. No thyromegaly. CARDIOVASCULAR: S1 and S2 present. No murmurs, rubs, or gallops. PULMONARY: Chest is clear to auscultation, no wheezing or crackles. ABDOMEN: Soft, nontender, nondistended, normoactive bowel sounds. No palpable organomegaly. MUSCULOSKELETAL: No joint swelling or deformity. EXTREMITIES: No cyanosis, clubbing, or pedal edema. NEUROLOGICAL: Gross neurological examination did not reveal any focal deficits. SKIN: No rashes. Assessment and plan -Crohn's exacerbation: Improved at this time patient will be discharged on 20 mg of steroids if he can tolerate soft diet today -Leukocytosis secondary to Crohn's exacerbation -Hyperchloremia and hyperchloremic metabolic acidosis secondary to IV fluids which will be discontinued patient was started on diet as mentioned above Patient will be discharged today on prednisone 20 mg twice a day along with Pepcid for GI prophylaxis and patient will be given [place] for pain patient was asked to take MiraLAX as needed if he gets constipated Patient Condition at Discharge: Stable Plan - Discharge Summary Discharge Rx Participant: No New Discharge Prescriptions: New HYDROcodone/APAP 7.5-325MG [[place] 7.5-325] 1 tab PO Q6HR PRN 3 Days #20 tab PRN Reason: Pain Famotidine [Pepcid] 20 mg PO BID #30 tablet predniSONE 20 mg PO DAILY #50 tab No Action HYDROcodone/APAP 5-325MG [[place] 5-325] 1 tab PO Q6HR PRN 3 Days #12 tab PRN Reason: Pain Ondansetron Odt [Zofran Odt] 4 mg PO Q8HR PRN #20 tab PRN Reason: Nausea And Vomiting Discharge Medication List HYDROcodone/APAP 5-325MG [[place] 5-325] 1 tab PO Q6HR PRN 3 Days #12 tab 10/14/23 [Rx] Ondansetron Odt [Zofran Odt] 4 mg PO Q8HR PRN #20 tab 10/14/23 [Rx] Famotidine [Pepcid] 20 mg PO BID #30 tablet 11/11/23 [Rx] HYDROcodone/APAP 7.5-325MG [[place] 7.5-325] 1 tab PO Q6HR PRN 3 Days #20 tab 11/11/23 [Rx] predniSONE 20 mg PO DAILY #50 tab 11/11/23 [Rx] Follow up Appointment(s)/Referral(s): Dariana Pathak MD [STAFF PHYSICIAN] - 1 Week Nonstaff,Physician [Primary Care Provider] - 1-2 days Discharge Disposition: HOME SELF-CARE
[2023-11-11] MEDS: PANTOPRAZOLE 40 MG/10 ML VIAL IVP SCH (11:54)
[2023-11-11 14:43] VITALS: BP 116/70; PULSE 86; TEMP 98.5
[2023-11-11] MEDS ORDERED: methylPREDNISolone SOD SUCCI 40 MG/ML 1 ML VIAL IV SCH (21:00)
== END 2023-11-11 16:26 | disposition home or self-care (01) | DRG 386 ==
LOC: EC 02:53 → 5NMEDONC 06:41
PROVIDERS: ADMIT Internal Medicine; ATTEND Internal Medicine
DX: K50.00 Crohn's disease of small intestine without complications (principal); E87.20 Acidosis, unspecified; E87.8 Other disorders of electrolyte and fluid balance, not elsewhere classified; N20.0 Calculus of kidney; Z82.49 Family history of ischemic heart disease and other diseases of the circulatory system; Z87.19 Personal history of other diseases of the digestive system
CPT/HCPCS: 36415; 74177; 80053; 81003; 83605; 83690; 85025; 85652; 86140; 96361; 96374; 96375; 96376; 99285

== ENCOUNTER 2024-03-09 04:53 | Observation (INO) | payer BC ==
--- NOTE | 2024-03-09 05:24 | ED ---
Abdominal Pain HPI <Kang Olmedo - Last Filed: 03/09/24 07:59> - General Source: patient, RN notes reviewed, old records reviewed Mode of arrival: ambulatory Limitations: no limitations - History of Present Illness MD Complaint: abdominal pain -: hour(s), days(s) Location: suprapubic Radiation: suprapubic Migration to: periumbilical Severity: moderate Severity scale (1-10): 6 Quality: stabbing, aching Consistency: constant, intermittent Improves With: nothing <Dwayne Ellison - Last Filed: 03/21/24 21:55> - General Chief Complaint: Abdominal Pain Stated Complaint: abd pain Time Seen by Provider: 03/09/24 05:23 - History of Present Illness Initial Comments: This is a 33-year-old male to the ER for evaluation today of severe abdominal pain with history of Crohn's colitis, history of scarring shown on MRI anterior abdomen suprapubic abdomen, patient has severe pain today did have bowel movement today but it was mostly air. Patient feels a lot of gurgling symptoms and rumbling abdominal symptoms (Dwayne Ellison) - Related Data Previous Rx's Medication Instructions Recorded Pantoprazole [Protonix] 40 mg PO DAILY #30 tab 03/09/24 predniSONE [Deltasone] 40 mg PO DAILY #25 tab 03/09/24 Allergies Allergy/AdvReac Type Severity Reaction Status Date / Time No Known Allergies Allergy Verified 03/09/24 09:45 Review of Systems ROS Other: All systems not noted in ROS Statement are negative. <Kang Olmedo - Last Filed: 03/09/24 07:59> ROS Other: All systems not noted in ROS Statement are negative. <Dwayne Ellison - Last Filed: 03/21/24 21:55> ROS Statement: Those systems with pertinent positive or pertinent negative responses have been documented in the HPI. Past Medical History Additional Past Medical History / Comment(s): Crohn's disease History of Any Multi-Drug Resistant Organisms: None Reported Additional Past Surgical History / Comment(s): spleen removed at 8 years old Past Anesthesia/Blood Transfusion Reactions: No Reported Reaction Past Psychological History: No Psychological Hx Reported Smoking Status: Never smoker Past Alcohol Use History: None Reported Past Drug Use History: None Reported - Past Family History Mother Additional Family Medical History / Comment(s): IBS Father Family Medical History: Cancer, Coronary Artery Disease (CAD) Additional Family Medical History / Comment(s): Father had prostate cancer, CABG, hereditary speen disease. family Family Medical History: No Reported History <ScotDwayne Davidson Garcia Last Filed: 03/21/24 21:55> General Exam Limitations: no limitations General appearance: alert, in no apparent distress Head exam: Present: atraumatic, normocephalic, normal inspection Eye exam: Present: normal appearance, PERRL, EOMI. Absent: scleral icterus, conjunctival injection, periorbital swelling ENT exam: Present: normal exam, mucous membranes moist Neck exam: Present: normal inspection. Absent: tenderness, meningismus, lymphadenopathy Respiratory exam: Present: normal lung sounds bilaterally. Absent: respiratory distress, wheezes, rales, rhonchi, stridor Cardiovascular Exam: Present: regular rate, normal rhythm, normal heart sounds. Absent: systolic murmur, diastolic murmur, rubs, gallop, clicks GI/Abdominal exam: Present: soft, normal bowel sounds. Absent: distended, tenderness, guarding, rebound, rigid Extremities exam: Present: normal inspection, full ROM, normal capillary refill. Absent: tenderness, pedal edema, joint swelling, calf tenderness Back exam: Present: normal inspection Neurological exam: Present: alert, oriented X3, CN II-XII intact Psychiatric exam: Present: normal affect, normal mood Skin exam: Present: warm, dry, intact, normal color. Absent: rash <Dwayne Ellison - Last Filed: 03/21/24 21:55> Course <Dwayne Ellison - Last Filed: 03/21/24 21:55> Vital Signs 03/09/24 03/09/24 03/09/24 05:08 07:14 08:38 Temperature 97.8 F Pulse Rate 73 78 76 Respiratory 18 18 20 Rate Blood Pressure 115/79 118/68 117/75 O2 Sat by Pulse 99 96 99 Oximetry 03/09/24 03/09/24 03/09/24 12:30 14:51 15:30 Temperature 98.8 F Pulse Rate 83 82 68 Respiratory 18 18 16 Rate Blood Pressure 114/64 142/81 126/72 O2 Sat by Pulse 96 97 98 Oximetry - Reevaluation(s) Reevaluation #1: 03/09/24 06:36 Records reviewed (Dwayne Ellison) Reevaluation #2: 03/09/24 06:36 Patient is symptoms are improving (Dwayne Ellison) Reevaluation #3: Patient informed of results questions answered (Dwayne Ellison) Reevaluation #4: Was pt. sent in by a medical professional or institution ([facility], [facility], urgent care, hospital, or fpc...) When possible be specific @ -no Did you speak to anyone other than the patient for history (EMS, parent, family, police, friend...)? What history was obtained from this source @ -no Did you review nursing and triage notes (agree or disagree)? Why? @ -agree Are old charts reviewed (outside hosp., previous admission, EMS record, old EKG, old radiological studies, urgent care reports/EKG's, fpc records)? Report findings @ -yes Differential Diagnosis (chest pain, altered mental status, abdominal pain women, abdominal pain men, vaginal bleeding, weakness, fever, dyspnea, syncope, headache, dizziness, GI bleed, back pain, seizure, CVA, palpatations, mental health, musculoskeletal)? @ -prior EKG interpreted by me (3pts min.). @ -no X-rays interpreted by me (1pt min.). @ -no CT interpreted by me (1pt min.). @ -yes negative for acute disease U/S interpreted by me (1pt. min.). @ -no What testing was considered but not performed or refused? (CT, X-rays, U/S, labs)? Why? @ -none What meds were considered but not given or refused? Why? @ -none Did you discuss the management of the patient with other professionals (professionals i.e. [facility], [facility], lab, RT, psych nurse, director social service, mold hoister, teacher, disability insurance hearing officer, wrapper caser)? Give summary @ -no Was smoking cessation discussed for >3mins.? @ -no Was critical care preformed (if so, how long)? @ -no Were there social determinants of health that impacted care today? How? (Homelessness, low income, unemployed, alcoholism, drug addiction, transportation, low edu. Level, literacy, decrease access to med. care, half-way, re hab)? @ -none Was there de-escalation of care discussed even if they declined (Discuss DNR or withdrawal of care, Hospice)? DNR status @ -no What co-morbidities impacted this encounter? (DM, HTN, Smoking, COPD, CAD, Cancer, CVA, ARF, Chemo, Hep., AIDS, mental health diagnosis, sleep apnea, morbid obesity)? @ -none Was patient admitted / discharged? Hospital course, mention meds given and route, prescriptions, significant lab abnormalities, going to OR and other pertinent info. @ - 33 male to ER for evaluation of severe abdominal pain with small bowel obstruction Admitted Undiagnosed new problem with uncertain prognosis? @ -no Drug Therapy requiring intensive monitoring for toxicity (Heparin, Nitro, Insulin, Cardizem)? @ -no Were any procedures done? @ -no Diagnosis/symptom? @ -Ileus small bowel obstruction abdominal pain Crohn's Acute, or Chronic, or Acute on Chronic? @ -Acute Uncomplicated (without systemic symptoms) or Complicated (systemic symptoms)? @ -Complicated Side effects of treatment? @ -no Exacerbation, Progression, or Severe Exacerbation? @ -exacerbation Poses a threat to life or bodily function? How? (Chest pain, USA, OR, pneumonia, PE, COPD, DKA, ARF, appy, cholecystitis, CVA, Diverticulitis, Homicidal, Suicidal, threat to staff... and all critical care pts) @ -yes significant chronic disease Crohn's (Dwayne Ellison) Reevaluation #5: Differential abdominal pain med (Dwayne Ellison) - Consultations Consultation #1: Spoke with surgery who agrees to admit this patient (Dwayne Ellison) Medical Decision Making - Lab Data Result diagrams: 03/09/24 05:10 03/09/24 05:10 <Kang Olmedo - Last Filed: 03/09/24 07:59> - Lab Data Result diagrams: 03/09/24 05:10 03/09/24 05:10 - Radiology Data Radiology results: report reviewed (CT abdomen pelvis positive for small bowel obstruction partial), image reviewed <Dwayne Ellison - Last Filed: 03/21/24 21:55> - Medical Decision Making Patient reevaluated by myself, Dr. Olmedo. Patient resting comfortably in bed. Abdomen is soft with mild to moderate diffuse tenderness. Patient states he had around 4 episodes of vomiting, last night was onset. Patient does feel little constipated. CT scan interpreted by myself shows thickening of small bowel. There is also a transition point concerning for partial small bowel obstruction Case was discussed with Dr. Rodríguez who will admit covering hospital call. Diagnosis: Crohn's, partial small bowel obstruction Acute on chronic, acute (Kang Olmedo) 33 male to ER for evaluation of severe abdominal pain with small bowel obstruction (Dwayne Ellison) - Lab Data Lab Results 03/09/24 03/09/24 03/09/24 Range/Units 05:10 05:10 05:10 WBC 19.6 H (3.8-10.6) k/uL RBC 5.54 (4.30-5.90) m/uL Hgb 16.5 (13.0-17.5) gm/dL Hct 48.2 (39.0-53.0) % MCV 87.1 (80.0-100.0) fL MCH 29.9 (25.0-35.0) pg MCHC 34.3 (31.0-37.0) g/dL RDW 13.3 (11.5-15.5) % Plt Count 701 H (150-450) k/uL MPV 8.5 Neutrophils % 90 % Lymphocytes % 4 % Monocytes % 4 % Eosinophils % 2 % Basophils % 1 % Neutrophils # 17.6 H (1.3-7.7) k/uL Lymphocytes # 0.8 L (1.0-4.8) k/uL Monocytes # 0.7 (0-1.0) k/uL Eosinophils # 0.3 (0-0.7) k/uL Basophils # 0.1 (0-0.2) k/uL Hyperchromasia Slight Sodium 139 (137-145) mmol/L Potassium 4.3 (3.5-5.1) mmol/L Chloride 107 (98-107) mmol/L Carbon Dioxide 21 L (22-30) mmol/L Anion Gap 11 mmol/L BUN 10 (9-20) mg/dL Creatinine 0.66 (0.66-1.25) mg/dL Est GFR (CKD-EPI)AfAm >90 (>60 ml/min/1.73 sqM) Est GFR (CKD-EPI)NonAf >90 (>60 ml/min/1.73 sqM) Glucose 115 H (74-99) mg/dL Lactic Ac Sepsis Rflx Plasma Lactic Acid Johny 2.4 H* (0.7-2.0) mmol/L Calcium 9.9 (8.4-10.2) mg/dL Phosphorus 3.9 (2.5-4.5) mg/dL Magnesium 1.6 (1.6-2.3) mg/dL Total Bilirubin 1.8 H (0.2-1.3) mg/dL AST 28 (17-59) U/L ALT 28 (4-49) U/L Alkaline Phosphatase 81 (38-126) U/L Total Protein 6.9 (6.3-8.2) g/dL Albumin 4.6 (3.5-5.0) g/dL Amylase 95 (30-110) U/L Lipase 90 (23-300) U/L Urine Color Urine Appearance (Clear) Urine pH (5.0-8.0) Ur Specific Platinum (1.001-1.035) Urine Protein (Negative) Urine Glucose (UA) (Negative) Urine Ketones (Negative) Urine Blood (Negative) Urine Nitrite (Negative) Urine Bilirubin (Negative) Urine Urobilinogen (<2.0) mg/dL Ur Leukocyte Esterase (Negative) 03/09/24 03/09/24 Range/Units 05:11 06:09 WBC (3.8-10.6) k/uL RBC (4.30-5.90) m/uL Hgb (13.0-17.5) gm/dL Hct (39.0-53.0) % MCV (80.0-100.0) fL MCH (25.0-35.0) pg MCHC (31.0-37.0) g/dL RDW (11.5-15.5) % Plt Count (150-450) k/uL MPV Neutrophils % % Lymphocytes % % Monocytes % % Eosinophils % % Basophils % % Neutrophils # (1.3-7.7) k/uL Lymphocytes # (1.0-4.8) k/uL Monocytes # (0-1.0) k/uL Eosinophils # (0-0.7) k/uL Basophils # (0-0.2) k/uL Hyperchromasia Sodium (137-145) mmol/L Potassium (3.5-5.1) mmol/L Chloride (98-107) mmol/L Carbon Dioxide (22-30) mmol/L Anion Gap mmol/L BUN (9-20) mg/dL Creatinine (0.66-1.25) mg/dL Est GFR (CKD-EPI)AfAm (>60 ml/min/1.73 sqM) Est GFR (CKD-EPI)NonAf (>60 ml/min/1.73 sqM) Glucose (74-99) mg/dL Lactic Ac Sepsis Rflx Y Plasma Lactic Acid Johny (0.7-2.0) mmol/L Calcium (8.4-10.2) mg/dL Phosphorus (2.5-4.5) mg/dL Magnesium (1.6-2.3) mg/dL Total Bilirubin (0.2-1.3) mg/dL AST (17-59) U/L ALT (4-49) U/L Alkaline Phosphatase (38-126) U/L Total Protein (6.3-8.2) g/dL Albumin (3.5-5.0) g/dL Amylase (30-110) U/L Lipase (23-300) U/L Urine Color Yellow Urine Appearance Clear (Clear) Urine pH 7.5 (5.0-8.0) Ur Specific Platinum 1.027 (1.001-1.035) Urine Protein Trace H (Negative) Urine Glucose (UA) Negative (Negative) Urine Ketones 1+ H (Negative) Urine Blood Negative (Negative) Urine Nitrite Negative (Negative) Urine Bilirubin Negative (Negative) Urine Urobilinogen 3.0 (<2.0) mg/dL Ur Leukocyte Esterase Negative (Negative) Disposition Is patient prescribed a controlled substance at d/c from ED?: No Time of Disposition: 08:01 <Kang Olmedo - Last Filed: 03/09/24 07:59> Is patient prescribed a controlled substance at d/c from ED?: No <Dwayne Ellison - Last Filed: 03/21/24 21:55> Clinical Impression: Crohn's disease, Partial small bowel obstruction, Ileitis, terminal, Nausea and vomiting, Abdominal pain, Colitis, Small bowel obstruction Disposition: ADMITTED IP TO THIS HOSP Condition: Serious
[2024-03-09 05:46] LABS: Basophils # (A) 0.1 k/uL (0-0.2); Basophils % (A) 1 %; Eosinophils # (A) 0.3 k/uL (0-0.7); Eosinophils % (A) 2 %; HCT 48.2 % (39.0-53.0); HGB 16.5 gm/dL (13.0-17.5); Hyperchromasia Slight; Lymphocytes # (A) 0.8 k/uL (1.0-4.8); Lymphocytes % (A) 4 %; MCH 29.9 pg (25.0-35.0); MCHC 34.3 g/dL (31.0-37.0); MCV 87.1 fL (80.0-100.0); Mean Platelet Volume 8.5; Monocytes # (A) 0.7 k/uL (0-1.0); Monocytes % (A) 4 %; Neutrophils # (A) 17.6 k/uL (1.3-7.7); Neutrophils % (A) 90 %; Platelet Count 701 k/uL (150-450); RBC 5.54 m/uL (4.30-5.90); RDW 13.3 % (11.5-15.5); WBC 19.6 k/uL (3.8-10.6)
[2024-03-09] MEDS: SODIUM CHLORIDE 0.9% 1,000 ML IV STA (05:47)
[2024-03-09] MEDS: PANTOPRAZOLE 40 MG/10 ML VIAL IVP STA (05:48)
[2024-03-09] MEDS: SODIUM CHLORIDE 0.9% 500 ML 500 ML IV STA (05:48)
[2024-03-09] MEDS: HYDROmorphone 1 MG/ML 1 ML SYRINGE IVP STA (05:48)
[2024-03-09] MEDS: ONDANSETRON 4 MG/2 ML VIAL IVP STA (05:49)
[2024-03-09 05:50] LABS: Appearance,Urine Clear (Clear); Bilirubin,Urine Negative (Negative); Blood,Urine Negative (Negative); Color,Urine Yellow; Glucose,Urine (UA) Negative (Negative); Ketones,Urine 1+ (Negative); Leukocyte Esterase,Urine Negative (Negative); Nitrite,Urine Negative (Negative); PH, Urine 7.5 (5.0-8.0); Protein,Urine Trace (Negative); Specific Gravity,Urine 1.027 (1.001-1.035)
[2024-03-09 06:08] LABS: ALT 28 U/L (4-49); AST 28 U/L (17-59); African American GFR (CKD) >90 (>60 ml/min/1.73 sqM); Albumin 4.6 g/dL (3.5-5.0); Alkaline Phosphatase 81 U/L (38-126); Amylase 95 U/L (30-110); Anion Gap 11 mmol/L; Blood Urea Nitrogen 10 mg/dL (9-20); Calcium 9.9 mg/dL (8.4-10.2); Carbon Dioxide 21 mmol/L (22-30); Chloride 107 mmol/L (98-107); Glucose 115 mg/dL (74-99); Lipase 90 U/L (23-300); Magnesium 1.6 mg/dL (1.6-2.3); Non-African American GFR(CKD) >90 (>60 ml/min/1.73 sqM); Phosphorus 3.9 mg/dL (2.5-4.5); Potassium 4.3 mmol/L (3.5-5.1); Sodium 139 mmol/L (137-145); Total Bilirubin 1.8 mg/dL (0.2-1.3); Total Protein 6.9 g/dL (6.3-8.2)
[2024-03-09] MEDS: methylPREDNISolone SOD SUCCI 125 MG/2 ML VIAL IV STA (07:13)
--- NOTE | 2024-03-09 07:27 | CT ---
EXAMINATION TYPE: CT abdomen pelvis w con DATE OF EXAM: 03/09/2024 COMPARISON: 11/11/2023 INDICATION: abdominal pain. chrons flare up. DLP: 637.5 mGycm, Automated exposure control for dose reduction was used. CONTRAST: 100ml mL of Isovue 300. Study performed without Oral Contrast TECHNIQUE: Axial images were obtained from above the diaphragm to the pubic rami in the axial plane a t 5 mm thick sections. Reconstructed images are reviewed on the computer in the coronal plane. FINDINGS: Limited CT sections are obtained the lung bases. The lung bases are clear. CT ABDOMEN: Liver: Normal Spleen: Absent Pancreas: Normal Adrenal glands: The adrenal glands are normal. Gallbladder: Normal Kidneys: No masses are evident. No hydronephrosis is present. No cysts are present. Delayed images were obtained through the kidneys, which remain unremarkable. Aorta: Normal Inferior vena cava: Normal. CT PELVIS: Scattered inguinal adenopathy not enlarged by CT criteria is present. There is some mild small bowel wall thickening within the dilated small bowel loop in the left mid ab domen. There is some dilated bowel with air-fluid levels within the pelvis. This has a mildly thicken ed wall appears to be some small bowel. The zone of transition is in the left lower quadrant. Small b owel wall thickening however continues. Partial small bowel obstruction left lower quadrant may be pr esent. Series 202 image 26. There is fluid within the colon. No dilated colon is evident. Terminal ileum is not dilated but is thickened. Scattered shotty lymphadenopathy appears to be present in the mesentery Appendix: Not identified. No dilated tubular structure inflammatory change is evident. Urinary bladder: Normal. Genitourinary structures: Prostate is normal Osseous structures: No suspicious lytic or sclerotic lesions. IMPRESSION: 1. Dilated fluid-filled small bowel loops. There are several loops of small bowel with diffusely thi ckened wall. Terminal ileum has a normal caliber with thickened wall. Findings can be compatible with the patient's reported Crohn's disease. 2. The dilated small bowel does have some transition in the left lower quadrant. Partial small bowel obstruction should be considered.
[2024-03-09] MEDS ORDERED: HYDROmorphone 1 MG/ML 1 ML SYRINGE IVP PRN (08:01)
[2024-03-09] MEDS ORDERED: NALOXONE 0.4 MG/ML 1 ML VIAL IV PRN (08:01)
[2024-03-09] MEDS ORDERED: HYDROmorphone 0.5 MG/0.5 ML SYRINGE IVP PRN (08:01)
[2024-03-09] MEDS ORDERED: ONDANSETRON 4 MG/2 ML VIAL IVP PRN (08:01)
[2024-03-09] MEDS: PANTOPRAZOLE 40 MG/10 ML VIAL IV SCH (08:16)
[2024-03-09] MEDS: SODIUM CHLORIDE 0.9% 1,000 ML IV SCH (08:36)
[2024-03-09] MEDS: KETOROLAC 15 MG/ML 1 ML VIAL IVP STA (08:37)
--- NOTE | 2024-03-09 10:52 | P.GSCN ---
History of Present Illness Consult date: 03/09/24 Reason for Consult: Small bowel obstruction History of present illness: 33-year-old male known to our service. Patient with history of Crohn's disease and has MRI showing evidence of stricture formation and scarring. Patient has had intermittent admissions for small bowel obstruction. Most recently April of last year. Prior to that January of last year. Says he had been doing better up until recently developed abdominal crampy pain with bloating and nausea. CAT scan reviewed and shows evidence of small bowel obstruction. Patient is on Stelara by GI as outpatient. He sees Dr. Omer. Patient says he has no symptoms currently. He has hoping to go home today. Review of Systems The patient denies any acute changes in vision or hearing, no dysphagia or odynophagia, no chest pain or shortness of breath, no dysuria or hematuria, no headache, no runny nose, no rectal bleeding or melena, no unexplained weight loss Past Medical History Additional Past Medical History / Comment(s): Crohn's disease History of Any Multi-Drug Resistant Organisms: None Reported Additional Past Surgical History / Comment(s): spleen removed at 8 years old Past Anesthesia/Blood Transfusion Reactions: No Reported Reaction Past Psychological History: No Psychological Hx Reported Smoking Status: Never smoker Past Alcohol Use History: None Reported Past Drug Use History: None Reported - Past Family History Mother Additional Family Medical History / Comment(s): IBS Father Family Medical History: Cancer, Coronary Artery Disease (CAD) Additional Family Medical History / Comment(s): Father had prostate cancer, CABG, hereditary speen disease. family Family Medical History: No Reported History Medications and Allergies Home Medications Medication Instructions Recorded Confirmed Type No Known Home Medications 03/09/24 03/09/24 History Allergies Allergy/AdvReac Type Severity Reaction Status Date / Time No Known Allergies Allergy Verified 03/09/24 09:45 Surgical - Exam Vital Signs Temp Pulse Resp BP Pulse Ox 97.8 F 73 18 115/79 99 03/09/24 05:08 03/09/24 05:08 03/09/24 05:08 03/09/24 05:08 03/09/24 05:08 Physical exam: General: Well-developed, well-nourished HEENT: Normocephalic, sclerae nonicteric Abdomen: Nontender, nondistended Extremities: No edema Neuro: Alert and oriented Results - Labs 03/09/24 05:10 03/09/24 05:10 Abnormal Lab Results - Last 24 Hours (Table) 03/09/24 03/09/24 03/09/24 Range/Units 05:10 05:10 05:10 WBC 19.6 H (3.8-10.6) k/uL Plt Count 701 H (150-450) k/uL Neutrophils # 17.6 H (1.3-7.7) k/uL Lymphocytes # 0.8 L (1.0-4.8) k/uL Carbon Dioxide 21 L (22-30) mmol/L Glucose 115 H (74-99) mg/dL Plasma Lactic Acid Johny 2.4 H* (0.7-2.0) mmol/L Total Bilirubin 1.8 H (0.2-1.3) mg/dL Urine Protein (Negative) Urine Ketones (Negative) 03/09/24 Range/Units 05:11 WBC (3.8-10.6) k/uL Plt Count (150-450) k/uL Neutrophils # (1.3-7.7) k/uL Lymphocytes # (1.0-4.8) k/uL Carbon Dioxide (22-30) mmol/L Glucose (74-99) mg/dL Plasma Lactic Acid Johny (0.7-2.0) mmol/L Total Bilirubin (0.2-1.3) mg/dL Urine Protein Trace H (Negative) Urine Ketones 1+ H (Negative) Diabetes panel 03/09/24 Range/Units 05:10 Sodium 139 (137-145) mmol/L Potassium 4.3 (3.5-5.1) mmol/L Chloride 107 (98-107) mmol/L Carbon Dioxide 21 L (22-30) mmol/L BUN 10 (9-20) mg/dL Creatinine 0.66 (0.66-1.25) mg/dL Glucose 115 H (74-99) mg/dL Calcium 9.9 (8.4-10.2) mg/dL AST 28 (17-59) U/L ALT 28 (4-49) U/L Alkaline Phosphatase 81 (38-126) U/L Total Protein 6.9 (6.3-8.2) g/dL Albumin 4.6 (3.5-5.0) g/dL Calcium panel 03/09/24 Range/Units 05:10 Calcium 9.9 (8.4-10.2) mg/dL Phosphorus 3.9 (2.5-4.5) mg/dL Albumin 4.6 (3.5-5.0) g/dL Pituitary panel 03/09/24 Range/Units 05:10 Sodium 139 (137-145) mmol/L Potassium 4.3 (3.5-5.1) mmol/L Chloride 107 (98-107) mmol/L Carbon Dioxide 21 L (22-30) mmol/L BUN 10 (9-20) mg/dL Creatinine 0.66 (0.66-1.25) mg/dL Glucose 115 H (74-99) mg/dL Calcium 9.9 (8.4-10.2) mg/dL Adrenal panel 03/09/24 Range/Units 05:10 Sodium 139 (137-145) mmol/L Potassium 4.3 (3.5-5.1) mmol/L Chloride 107 (98-107) mmol/L Carbon Dioxide 21 L (22-30) mmol/L BUN 10 (9-20) mg/dL Creatinine 0.66 (0.66-1.25) mg/dL Glucose 115 H (74-99) mg/dL Calcium 9.9 (8.4-10.2) mg/dL Total Bilirubin 1.8 H (0.2-1.3) mg/dL AST 28 (17-59) U/L ALT 28 (4-49) U/L Alkaline Phosphatase 81 (38-126) U/L Total Protein 6.9 (6.3-8.2) g/dL Albumin 4.6 (3.5-5.0) g/dL Assessment and Plan (1) Partial small bowel obstruction Narrative/Plan: 33-year-old male with small bowel obstruction related to Crohn's disease. Begin clear liquids. If patient tolerates clears may consider discharge with outpatient follow-up by GI. If the patient is admitted recommend course of IV steroids followed by oral prednisone on discharge. Current Visit: Yes Status: Acute Code(s): K56.600 - PARTIAL INTESTINAL OBSTRUCTION, UNSPECIFIED TO CAUSE SNOMED Code(s): 571653336
--- NOTE | 2024-03-09 12:14 | P.HPIM ---
History of Present Illness H&P Date: 03/09/24 Patient is a 33-year-old male with history of Crohn's disease on Biologics, seen by GI presenting with acute episode of abdominal pain, nausea and vomiting. He claims that he was doing well up until yesterday evening when he started having abdominal pain with nausea. This morning he had increased episodes of nausea as well as vomiting. Currently having constipation. Denies any diarrhea or bloody stools. Denies any fevers or chills. Denies any chest pain, palpitations, shortness of breath. In the ED, temperature was 97.8, pulse 73, respiratory rate 18, blood pressure 115/79, saturating at 99% on room air. WBC 19.6, platelet 701, bicarb 21, anion gap 11, creatinine 0.66, lactate 2.4 down trended to 0.9, total bili 1.8, lipase 90. CT abdomen pelvis showed dilated fluid-filled small bowel loops, several loops of small bowel with a diffusely thickened wall, terminal ileum has a normal caliber with thickened wall, dilated small bowel does have some transition in the left lower quadrant, partial small bowel obstruction should be considered. General surgery consulted. Patient admitted for partial small bowel obstruction. Pertinent positives and negatives as discussed in HPI, a complete review of systems was performed and all other systems are negative. Patient seen and examined at bedside. Vital signs reviewed General: nontoxic, no distress, appears at stated age Derm: warm, dry Head: atraumatic, normocephalic, symmetric Eyes: EOMI, no lid lag, anicteric sclera, pupils equal round reactive to light ENT: Nose and ears atraumatic Neck: No thyromegaly, supple Mouth: no lip lesion, mucus membranes moist Cardiovascular: S1S2 reg, no murmur, no edema Lungs: clear to auscultation bilateral, no rhonchi, no rales, no wheeze, no accessory muscle use Abdominal: soft, nontender to palpation, no guarding, no appreciable organomegaly Ext: no gross muscle atrophy, muscle strength muscle strength 5 out of 5 in all 4 extremities, no contractures Neuro: CN II-XII grossly intact Psych: Alert, oriented, appropriate affect Assessment/Plan: Active: Partial small bowel obstruction Crohn's disease exacerbation Leukocytosis, reactive Thrombocytosis, reactive -Surgery note reviewed, started on clear liquids, if patient tolerates, may possibly be discharged with close follow-up with GI outpatient -started on prednisone 40 mg daily -IV pantoprazole 40 mg daily -Continue normal saline 130 cc an hour -Pain control with IV Dilaudid as needed Resolved: Lactic acidosis The patient is admitted with an anticipated less than 2 midnight stay as observation status for evaluation of partial SBO. Surrogate decision-maker: Father CODE STATUS: Full code DVT prophylaxis: Lovenox Anticipated discharge date: Pending clinical course Anticipated discharge place: Pending clinical course A total of 55 minutes was spent on the care of this complex patient more than 50% of the time was spent in counseling and care coordination. Past Medical History Additional Past Medical History / Comment(s): Crohn's disease History of Any Multi-Drug Resistant Organisms: None Reported Additional Past Surgical History / Comment(s): spleen removed at 8 years old Past Anesthesia/Blood Transfusion Reactions: No Reported Reaction Past Psychological History: No Psychological Hx Reported Smoking Status: Never smoker Past Alcohol Use History: None Reported Past Drug Use History: None Reported - Past Family History Mother Additional Family Medical History / Comment(s): IBS Father Family Medical History: Cancer, Coronary Artery Disease (CAD) Additional Family Medical History / Comment(s): Father had prostate cancer, CABG, hereditary speen disease. family Family Medical History: No Reported History Medications and Allergies Home Medications Medication Instructions Recorded Confirmed Type No Known Home Medications 03/09/24 03/09/24 History Allergies Allergy/AdvReac Type Severity Reaction Status Date / Time No Known Allergies Allergy Verified 03/09/24 09:45 Physical Exam Vitals: Vital Signs Temp Pulse Resp BP Pulse Ox 03/09/24 08:38 76 20 117/75 99 03/09/24 07:14 78 18 118/68 96 03/09/24 05:08 97.8 F 73 18 115/79 99 Intake and Output 03/08/24 03/09/24 03/09/24 22:59 06:59 14:59 Other: Weight 70.307 kg Results CBC & Chem 7: 03/09/24 05:10 03/09/24 05:10 Labs: Abnormal Lab Results - Last 24 Hours (Table) 03/09/24 03/09/24 03/09/24 Range/Units 05:10 05:10 05:10 WBC 19.6 H (3.8-10.6) k/uL Plt Count 701 H (150-450) k/uL Neutrophils # 17.6 H (1.3-7.7) k/uL Lymphocytes # 0.8 L (1.0-4.8) k/uL Carbon Dioxide 21 L (22-30) mmol/L Glucose 115 H (74-99) mg/dL Plasma Lactic Acid Johny 2.4 H* (0.7-2.0) mmol/L Total Bilirubin 1.8 H (0.2-1.3) mg/dL Urine Protein (Negative) Urine Ketones (Negative) 03/09/24 Range/Units 05:11 WBC (3.8-10.6) k/uL Plt Count (150-450) k/uL Neutrophils # (1.3-7.7) k/uL Lymphocytes # (1.0-4.8) k/uL Carbon Dioxide (22-30) mmol/L Glucose (74-99) mg/dL Plasma Lactic Acid Johny (0.7-2.0) mmol/L Total Bilirubin (0.2-1.3) mg/dL Urine Protein Trace H (Negative) Urine Ketones 1+ H (Negative)
--- NOTE | 2024-03-09 15:14 | P.DS ---
Providers Date of admission: 03/09/24 08:02 Expected date of discharge: 03/09/24 Attending physician: Jaydon Rosado MD Consults: 03/09/24 08:01 Consult Physician Routine Consulting Provider: Mo Schaefer Consult Reason/Comments: partial sbo Do you want consulting provider notified?: Yes Primary care physician: Stated None Hospital Course: Discharge Diagnosis: Partial small bowel obstruction Crohn's disease exacerbation Leukocytosis, reactive Thrombocytosis, reactive Lactic acidosis Hospital Course: Patient is a 33-year-old male with history of Crohn's disease on Biologics, seen by GI presenting with acute episode of abdominal pain, nausea and vomiting. In the ED, temperature was 97.8, pulse 73, respiratory rate 18, blood pressure 115/79, saturating at 99% on room air. WBC 19.6, platelet 701, bicarb 21, anion gap 11, creatinine 0.66, lactate 2.4 down trended to 0.9, total bili 1.8, lipase 90. CT abdomen pelvis showed dilated fluid-filled small bowel loops, several loops of small bowel with a diffusely thickened wall, terminal ileum has a normal caliber with thickened wall, dilated small bowel does have some transition in the left lower quadrant, partial small bowel obstruction should be considered. General surgery consulted. Patient admitted for partial small bowel obstruction. Tolerated clear liquid diet. Being discharged on oral st eroid taper. Follow-up with GI outpatient. Patient seen and examined at bedside. Vital signs reviewed and stable. General: Nontoxic, no distress, appears at stated age Derm: Warm, dry Head: Atraumatic, normocephalic, symmetric Eyes: EOMI, no lid lag, anicteric sclera Mouth: No lip lesion, mucus membranes moist Cardiovascular: S1S2 reg, no murmur Lungs: CTA bilateral, no rhonchi, no rales, no accessory muscle use Abdominal: Soft, nontender to palpation, no guarding, no appreciable organomegaly Ext: No gross muscle atrophy, no edema, no contractures Neuro: CN II-XI grossly intact, no focal neuro deficits Psych: Alert, oriented, appropriate affect A total of 33 minutes of time were spent preparing this complex discharge summary. Patient was discharged on 03/09/2024 at 1511. Patient Condition at Discharge: Stable Plan - Discharge Summary New Discharge Prescriptions: New predniSONE [Deltasone] 40 mg PO DAILY #25 tab Pantoprazole [Protonix] 40 mg PO DAILY #30 tab Discharge Medication List Pantoprazole [Protonix] 40 mg PO DAILY #30 tab 03/09/24 [Rx] predniSONE [Deltasone] 40 mg PO DAILY #25 tab 03/09/24 [Rx] Follow up Appointment(s)/Referral(s): Karen Clark MD [REFERRING] - 1 Week (Please call her office to make an appointment. ) Patient Instructions/Handouts: Bowel Obstruction (DC) Activity/Diet/Wound Care/Special Instructions: Please see your GI specialist. Advance diet slowly. Discharge Disposition: HOME SELF-CARE
[2024-03-09 15:32] VITALS: BP 126/72; PULSE 68; RESP 16; TEMP 98.8
[2024-03-10] MEDS ORDERED: ENOXAPARIN 40 MG/0.4 ML SYRINGE SQ SCH (09:00)
[2024-03-10] MEDS ORDERED: predniSONE 20 MG TAB PO SCH (09:00)
== END 2024-03-09 15:30 | disposition home or self-care (01) ==
LOC: EC 04:53 → 4SSUR 08:02
PROVIDERS: ADMIT Student in an Organized Health Care Education/Training Program; ATTEND Student in an Organized Health Care Education/Training Program
DX: K50.112 Crohn's disease of large intestine with intestinal obstruction (principal); D72.829 Elevated white blood cell count, unspecified; D75.838 Other thrombocytosis; E87.20 Acidosis, unspecified; Z82.49 Family history of ischemic heart disease and other diseases of the circulatory system; Z80.42 Family history of malignant neoplasm of prostate; Z79.899 Other long term (current) drug therapy
CPT/HCPCS: 96376; 96361; 96365; 96375; 99285; 36415; 80053; 82150; 83605; 83690; 83735; 84100; 85025; 81003; 74177; G0378; J2405; J1170; C9113; Q9967; J2919

== ENCOUNTER 2024-05-01 03:22 | Emergency (ER) | payer BC | END 2024-05-01 04:02 | disposition left against medical advice (07) | LOC: EC 03:22 | DX: Z53.21 Procedure and treatment not carried out due to patient leaving prior to being seen by health care provider (principal) ==

== ENCOUNTER → 2024-09-15 | Outpatient (CLI) | payer BC ==
[2024-09-15 15:28] LABS: Basophils # (A) 0.13 X 10*3/uL (0.00-0.10); Basophils % (A) 1.5 %; Eosinophils # (A) 0.44 X 10*3/uL (0.04-0.35); Eosinophils % (A) 5.2 %; Lymphocytes # (A) 1.53 X 10*3/uL (0.90-5.00); MCH 22.1 pg (27.0-32.0); MCHC 28.9 g/dL (32.0-37.0); MCV 76.5 FL (80.0-97.0); Mean Platelet Volume 10.2 FL (9.5-12.2); Monocytes # (A) 1.04 X 10*3/uL (0.20-1.00); Monocytes % (A) 12.2 %; NRBC Per 100 WBC 0 X 10*3/uL (0.00-0.01); Neutrophils # (A) 5.35 X 10*3/uL (1.80-7.70); Platelet Count 746 X 10*3/uL (140-440); RBC 4.97 X 10*6/uL (4.40-5.60); RDW 15.6 % (11.5-14.5)
[2024-09-15 15:36] LABS: BUN/Creat Ratio 16.86 Ratio (12.00-20.00); Blood Urea Nitrogen 11.8 mg/dL (9.0-27.0); Chloride 108 mmol/L (96-109); Glucose 83 mg/dL (70-110); Potassium 4.4 mmol/L (3.5-5.5); Sodium 143 mmol/L (135-145)
[2024-09-15 15:37] LABS: ALT 21 U/L (10-49); AST 19 U/L (14-35); Albumin 4.3 g/dL (3.8-4.9); Albumin/Globulin Ratio 1.95 Ratio (1.60-3.17); Alkaline Phosphatase 91 U/L (41-126); Calcium 9.4 mg/dL (8.7-10.3); Carbon Dioxide 23.6 mmol/L (21.6-31.8); Globulin 2.2 g/dL (1.6-3.3); Total Bilirubin 0.4 mg/dL (0.3-1.2); Total Protein 6.5 g/dL (6.2-8.2)
[2024-09-15 17:47] LABS: Erythrocyte Sedimentation Rate 12 mm/Hr (0-15)
== END | disposition home or self-care (01) ==
LOC: LABWHC1 08:25
PROVIDERS: ATTEND Internal Medicine Gastroenterology
DX: K50.90 Crohn's disease, unspecified, without complications (principal)
CPT/HCPCS: 36415; 80053; 85025; 85652; 86140

== ENCOUNTER → 2025-04-13 | Outpatient (CLI) | payer BC ==
[2025-04-13 20:22] LABS: ALT 34 U/L (10-49); AST 26 U/L (14-35); Albumin 4.2 g/dL (3.8-4.9); Albumin/Globulin Ratio 2.00 Ratio (1.60-3.17); Alkaline Phosphatase 87 U/L (41-126); Anion Gap 12.50 mmol/L (4.00-12.00); BUN/Creat Ratio 10.75 Ratio (12.00-20.00); Blood Urea Nitrogen 8.6 mg/dL (9.0-27.0); Calcium 9.4 mg/dL (8.7-10.3); Carbon Dioxide 21.5 mmol/L (21.6-31.8); Chloride 108 mmol/L (96-109); Globulin 2.1 g/dL (1.6-3.3); Glucose 106 mg/dL (70-110); Potassium 4.6 mmol/L (3.5-5.5); Sodium 142 mmol/L (135-145); Total Protein 6.3 g/dL (6.2-8.2)
[2025-04-13 20:34] LABS: Acanthocytes 2+ (None Seen); Basophils # (A) 0.11 X 10*3/uL (0.00-0.10); Basophils % (A) 1.2 %; Eosinophils # (A) 0.46 X 10*3/uL (0.04-0.35); Eosinophils % (A) 5.1 %; HCT 39.0 % (39.6-50.0); HGB 11.8 g/dL (13.0-17.0); Immature Grans, Automated 0.20 %; Lymphocytes # (A) 1.48 X 10*3/uL (0.90-5.00); Lymphocytes % (A) 16.5 %; MCH 24.0 pg (27.0-32.0); MCHC 30.3 g/dL (32.0-37.0); MCV 79.3 FL (80.0-97.0); Monocytes # (A) 1.43 X 10*3/uL (0.20-1.00); Monocytes % (A) 15.9 %; NRBC Per 100 WBC 0 X 10*3/uL (0.00-0.01); Neutrophils # (A) 5.49 X 10*3/uL (1.80-7.70); Neutrophils % (A) 61.1 %; Platelet Count 854 X 10*3/uL (140-440); RBC 4.92 X 10*6/uL (4.40-5.60); RDW 16.6 % (11.5-14.5); WBC 8.99 X 10*3/uL (4.50-10.00)
== END | disposition home or self-care (01) ==
LOC: LABWHC1 13:35
PROVIDERS: ATTEND Nurse Practitioner Family
DX: K50.90 Crohn's disease, unspecified, without complications (principal)
CPT/HCPCS: 36415; 80053; 85025; 85652; 86140